=== PATIENT | female | born 1970 | race Caucasian/White ===

== ENCOUNTER 2017-03-24 13:54 | Emergency (ER) | payer MEDICAID, MEDICARE ==
[2017-03-24 14:32] LABS: CHLORIDE,CL 109 mmol/L (101-111); SODIUM,NA 143 mmol/L (135-145)
[2017-03-24] MEDS ORDERED: ALPRAZolam 0.5 MG Tab PO ONE (14:39)
[2017-03-24] MEDS ORDERED: Acetaminophen 325 MG Tab PO ONE (14:39)
[2017-03-24] MEDS ORDERED: Ondansetron 4 MG/2 ML SDV IV ONE (14:39)
--- NOTE | 2017-03-24 15:05 | EDM.PDOC ---
ED HPI GENERAL MEDICAL PROBLEM - General Chief Complaint: Chest Pain Stated Complaint: BY AMBULANCE Time Seen by Provider: 03/24/17 14:30 Source of Information: Reports: Patient History Limitations: Reports: No Limitations - History of Present Illness INITIAL COMMENTS - FREE TEXT/NARRATIVE: Patient is a 47 year old female who presents to ER via EMS from [facility] with complaints of chest pain. She reports that the chest pain started at 1315. Pain is worse with inspiration and radiates to the left shoulder blade. She does report some shortness of breath. Reports that she has not had her anxiety medications for a few days and is also feeling very anxious. She also complains of a headache. She reports she has been out of her medication for headaches, so she has had a throbbing headache for the past few days. She has a history of similar headaches. She also complains of nausea. Has not vomited. Reports she "just doesn't feel good. She is worried that she might have a pulmonary embolism, as she has in the past, because she has been driving [address] to visit her fiance. 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: EKG, IV/IO Bilateral Upper Chest Pain Score (Numeric/FACES): 7 - Related Data Allergies Allergy/AdvReac Type Severity Reaction Status Date / Time bee venom protein (honey bee) Allergy Airway Verified 03/24/17 14:06 Tightness lurasidone [From Latuda] Allergy Other Verified 03/24/17 14:06 morphine Allergy Chest Pain Verified 03/24/17 14:06 Penicillins Allergy Hives Verified 03/24/17 14:06 Home Meds: Home Meds ALPRAZolam [Alprazolam] 0.25 mg PO QID 03/24/17 [History] ClonazePAM [KlonoPIN] 1 mg PO BEDTIME 03/24/17 [History] Melatonin 6 mg PO BEDTIME 03/24/17 [History] Omeprazole 40 mg PO BID 03/24/17 [History] Potassium Chloride 10 meq PO DAILY 03/24/17 [History] Pramipexole Di-HCl [Mirapex] 2 tab PO BEDTIME 03/24/17 [History] Prazosin HCl [Prazosin] 3 mg PO BEDTIME 03/24/17 [History] Propranolol [Inderal] 20 mg PO TID 03/24/17 [History] Suvorexant [Belsomra] 20 mg PO BEDTIME 03/24/17 [History] Venlafaxine HCl [Venlafaxine ER] 75 mg PO BID 03/24/17 [History] atorvaSTATin [Lipitor] 10 mg PO BEDTIME 03/24/17 [History] risperiDONE 1 mg PO BEDTIME 03/24/17 [History] Past Medical History HEENT History: Reports: None Cardiovascular History: Reports: Blood Clots/VTE/DVT Respiratory History: Reports: PE Gastrointestinal History: Reports: GERD, Irritable Bowel Syndrome Genitourinary History: Reports: Pyelonephritis 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: Musculoskeletal History: Reports: None Neurological History: Reports: Migraines Psychiatric History: Reports: Anxiety, Bipolar, Depression, PTSD, Other (See Below) Other Psychiatric History: borderline personality disorder Endocrine/Metabolic History: Reports: None Hematologic History: Reports: None Immunologic History: Reports: None Oncologic (Cancer) History: Reports: None Dermatologic History: Reports: None - Infectious Disease History Infectious Disease History: Reports: Chicken Pox - Past Surgical History HEENT Surgical History: Reports: None Cardiovascular Surgical History: Reports: None Respiratory Surgical History: Reports: None GI Surgical History: Reports: Appendectomy, Cholecystectomy Female Surgical History: Reports: Section, Hysterectomy, Tubal Ligation Endocrine Surgical History: Reports: None Neurological Surgical History: Reports: None Musculoskeletal Surgical History: Reports: None Dermatological Surgical History: Reports: None Social & Family History - Family History Family Medical History: Noncontributory - Tobacco Use Smoking Status *Q: Current Every Day Smoker Years of Tobacco use: 20 Packs/Tins Daily: 1 Second Hand Smoke Exposure: Yes - Caffeine Use Caffeine Use: Reports: Coffee, Soda - Alcohol Use Days Per Week of Alcohol Use: 2 Number of Drinks Per Day: 3 Total Drinks Per Week: 6 - Recreational Drug Use Recreational Drug Use: No ED ROS GENERAL - Review of Systems Review Of Systems: ROS reveals no pertinent complaints other than HPI. ED EXAM, GENERAL - Physical Exam Exam: See Below Exam Limited By: No Limitations General Appearance: Alert, WD/WN, Anxious, Moderate Distress Eye Exam: Bilateral Eye: PERRL Head: Atraumatic, Normocephalic Neck: Normal Inspection, Supple, Non-Tender, Full Range of Motion Respiratory/Chest: No Respiratory Distress, Lungs Clear, Normal Breath Sounds, No Accessory Muscle Use Cardiovascular: Normal Peripheral Pulses, Regular Rate, Rhythm, No Edema, No Gallop, No JVD, No Murmur, No Rub GI/Abdominal: Normal Bowel Sounds, Soft, Non-Tender, No Organomegaly, No Distention, No Abnormal Bruit, No Mass (Female) Exam: Deferred Rectal (Female) Exam: Deferred Back Exam: Normal Inspection, Full Range of Motion, NT Extremities: Normal Inspection, Normal Range of Motion, Non-Tender, Normal Capillary Refill, No Pedal Edema Neurological: Alert, Oriented, CN II-XII Intact, Normal Cognition, Normal Gait, No Motor/Sensory Deficits Psychiatric: Anxious, Tearful Skin Exam: Warm, Dry, Intact, Normal Color, No Rash Lymphatic: No Adenopathy Course - Vital Signs Last Recorded V/S: Last Vital Signs Temp 36.6 C 03/24/17 17:21 Pulse 71 03/24/17 17:21 Resp 16 03/24/17 17:21 BP 110/68 03/24/17 17:21 Pulse Ox 99 03/24/17 17:21 - Orders/Labs/Meds Labs: Laboratory Tests 03/24/17 03/24/17 03/24/17 Range/Units 14:06 14:06 14:06 WBC 8.5 (5.0-10.0) 10^3/uL RBC 4.65 (4.2-5.4) 10^6/uL Hgb 14.3 (12.0-16.0) g/dL Hct 42.9 (37.0-47.0) % MCV 92.3 (80-100) fL MCH 30.8 (27.0-34.0) pg MCHC 33.3 (33.0-35.0) g/dL Plt Count 254 (150-450) 10^3/uL Neut % (Auto) 67.9 (42.2-75.2) % Lymph % (Auto) 24.4 (20.5-50.1) % Milam % (Auto) 5.9 (2-8) % Eos % (Auto) 1.2 (1.0-3.0) % Baso % (Auto) 0.6 (0.0-1.0) % PT 9.3 (9.0-12.0) SEC INR 0.9 (0.9-1.2) D-Dimer, Quantitative < 100 (0-400) ng/mL Sodium 143 (135-145) mmol/L Potassium 3.1 L (3.6-5.0) mmol/L Chloride 109 (101-111) mmol/L Carbon Dioxide 22.0 (21.0-31.0) mmol/L Anion Gap 15.1 BUN 6 L (7-18) mg/dL Creatinine 0.9 (0.6-1.3) mg/dL Est Cr Clr Drug Dosing 62.52 mL/min Estimated GFR (MDRD) > 60 BUN/Creatinine Ratio 6.66 Glucose 141 H (74-105) mg/dL Calcium 9.2 (8.4-10.2) mg/dl Total Bilirubin 0.4 (0.2-1.0) mg/dL AST 35 (10-42) IU/L ALT 32 (10-60) IU/L Alkaline Phosphatase 75 (42-121) IU/L Troponin I < 0.02 (0.00-0.02) ng/ml Total Protein 7.1 (6.7-8.2) g/dl Albumin 4.2 (3.2-5.5) g/dl Globulin 2.9 Albumin/Globulin Ratio 1.45 /20/17 Range/Units 17:25 WBC (5.0-10.0) 10^3/uL RBC (4.2-5.4) 10^6/uL Hgb (12.0-16.0) g/dL Hct (37.0-47.0) % MCV (80-100) fL MCH (27.0-34.0) pg MCHC (33.0-35.0) g/dL Plt Count (150-450) 10^3/uL Neut % (Auto) (42.2-75.2) % Lymph % (Auto) (20.5-50.1) % Milam % (Auto) (2-8) % Eos % (Auto) (1.0-3.0) % Baso % (Auto) (0.0-1.0) % PT (9.0-12.0) SEC INR (0.9-1.2) D-Dimer, Quantitative (0-400) ng/mL Sodium (135-145) mmol/L Potassium (3.6-5.0) mmol/L Chloride (101-111) mmol/L Carbon Dioxide (21.0-31.0) mmol/L Anion Gap BUN (7-18) mg/dL Creatinine (0.6-1.3) mg/dL Est Cr Clr Drug Dosing mL/min Estimated GFR (MDRD) BUN/Creatinine Ratio Glucose (74-105) mg/dL Calcium (8.4-10.2) mg/dl Total Bilirubin (0.2-1.0) mg/dL AST (10-42) IU/L ALT (10-60) IU/L Alkaline Phosphatase (42-121) IU/L Troponin I < 0.02 (0.00-0.02) ng/ml Total Protein (6.7-8.2) g/dl Albumin (3.2-5.5) g/dl Globulin Albumin/Globulin Ratio Meds: Medications Discontinued Medications Generic Name Dose Route Start Last Admin Trade Name Freq PRN Reason Stop Dose Admin Acetaminophen 650 mg 03/24/17 14:39 03/24/17 14:59 Tylenol PO 03/24/17 14:40 650 mg NOW ONE Administration Alprazolam 0.5 mg 03/24/17 14:39 03/24/17 14:59 Xanax PO 03/24/17 14:40 0.5 mg ONETIME ONE Administration Ondansetron HCl 4 mg 03/24/17 14:39 03/24/17 15:00 Zofran IV 03/24/17 14:40 4 mg ONETIME ONE Administration - Re-Assessments/Exams Free Text/Narrative Re-Assessment/Exam: Discussed lab, EKG, and xray findings with patient. Will plan to redraw troponin and repeat EKG at 1715 (4 hours after onset of pain) to rule out cardiac origin of chest pain. 03/24/17 1500 Departure - Departure Time of Disposition: 18:09 Disposition: Home, Self-Care 01 Condition: Good Clinical Impression: Panic attack Instructions: Panic Attacks, [id number], Nonspecific Chest Pain, [id number] Forms: ED Department Discharge Care Plan Goals: Xray, lab, and EKG discussed with patient. Discussed that chest pain is not of cardiac origin, as the initial and repeat troponin and EKG were normal. This is likely anxiety/panic attack related. Reassurance provided to patient. Recommend patient restart her anxiety medications. Follow up with primary care or ER if symptoms worsen or do not improve.
[2017-03-24 17:22] VITALS: BP 110/68
--- NOTE | 2017-03-25 14:19 | EKG ---
03/24/2017 - IMANI IRWIN - TIME: 1409 hours. I reviewed the EKG and agree with the machine's reading. TIME: 1702 hours. I reviewed the EKG and agree with the machine's reading. [facility] /[id number]
== END 2017-03-24 18:25 | disposition home or self-care (01) ==
LOC: DL.ED 13:54
DX: F41.0 Panic disorder [episodic paroxysmal anxiety] (principal); F17.210 Nicotine dependence, cigarettes, uncomplicated; Z88.5 Allergy status to narcotic agent; Z79.899 Other long term (current) drug therapy; Z88.0 Allergy status to penicillin; Z91.030 Bee allergy status
CPT/HCPCS: 36415; 71010; 80053; 84484; 85025; 85379; 85610; 93005; 93010; 96374; 99285; A9270; J2405; 99284

== ENCOUNTER 2017-04-03 21:46 | Emergency (ER) | payer MEDICARE, MEDICAID ==
[2017-04-03] MEDS ORDERED: Pantoprazole 40 MG Vial IVPUSH ONE (22:21)
[2017-04-03] MEDS ORDERED: Sodium Chloride 0.9% 1,000 ML IV ONE (22:21)
[2017-04-03] MEDS ORDERED: Ondansetron 4 MG/2 ML SDV IV ONE (22:21)
--- NOTE | 2017-04-03 22:28 | EDM.PDOC ---
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 Epigastric Pain Score (Numeric/FACES): 7 - Related Data Allergies Allergy/AdvReac Type Severity Reaction Status Date / Time bee venom protein (honey bee) Allergy Airway Verified 04/03/17 21:53 Tightness lurasidone [From Latuda] Allergy Other Verified 04/03/17 21:53 morphine Allergy Chest Pain Verified 04/03/17 21:53 Penicillins Allergy Hives Verified 04/03/17 21:53 Home Meds: Home Meds ALPRAZolam [Alprazolam] 0.25 mg PO QID 03/24/17 [History] ClonazePAM [KlonoPIN] 1 mg PO BEDTIME 03/24/17 [History] Melatonin 6 mg PO BEDTIME 03/24/17 [History] Omeprazole 40 mg PO BID 03/24/17 [History] Potassium Chloride 10 meq PO DAILY 03/24/17 [History] Pramipexole Di-HCl [Mirapex] 2 tab PO BEDTIME 03/24/17 [History] Prazosin HCl [Prazosin] 3 mg PO BEDTIME 03/24/17 [History] Propranolol [Inderal] 80 mg PO DAILY 03/24/17 [History] Venlafaxine HCl [Venlafaxine ER] 75 mg PO BID 03/24/17 [History] atorvaSTATin [Lipitor] 10 mg PO BEDTIME 03/24/17 [History] risperiDONE 1 mg PO BEDTIME 03/24/17 [History] Fesoterodine Fumarate [Toviaz] 8 mg PO DAILY 04/03/17 [History] valACYclovir HCl [Valtrex] 500 mg PO DAILY 04/03/17 [History] Past Medical History HEENT History: Reports: None Cardiovascular History: Reports: Blood Clots/VTE/DVT Respiratory History: Reports: PE, Other (See Below) Other Respiratory History: PE 2016 Gastrointestinal History: Reports: GERD, Irritable Bowel Syndrome, Other (See Below) Other Gastrointestinal History: 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 Genitourinary History: Reports: Pyelonephritis [employer] History: Reports: Musculoskeletal History: Reports: Back Pain, Chronic Neurological History: Reports: Migraines Psychiatric History: Reports: Anxiety, Bipolar, Depression, PTSD, Other (See Below) Other Psychiatric History: borderline personality disorder Endocrine/Metabolic History: Reports: None Hematologic History: Reports: None Immunologic History: Reports: None Oncologic (Cancer) History: Reports: None Dermatologic History: Reports: None - Infectious Disease History Infectious Disease History: Reports: Chicken Pox - Past Surgical History HEENT Surgical History: Reports: None Cardiovascular Surgical History: Reports: None Respiratory Surgical History: Reports: None GI Surgical History: Reports: Appendectomy, Cholecystectomy Female Surgical History: Reports: Section, Hysterectomy, Tubal Ligation Endocrine Surgical History: Reports: None Neurological Surgical History: Reports: None Musculoskeletal Surgical History: Reports: Other (See Below) Other Musculoskeletal Surgeries/Procedures:: sergio surgery, knee surgery Dermatological Surgical History: Reports: None Social & Family History - Family History Family Medical History: Noncontributory - Tobacco Use Smoking Status *Q: Heavy Tobacco Smoker Years of Tobacco use: 20 Packs/Tins Daily: 0.7 Second Hand Smoke Exposure: Yes - Caffeine Use Caffeine Use: Reports: Coffee, Soda - Alcohol Use Days Per Week of Alcohol Use: 3 Number of Drinks Per Day: 12 Total Drinks Per Week: 36 - Recreational Drug Use Recreational Drug Use: No ED ROS GENERAL - Review of Systems Review Of Systems: ROS reveals no pertinent complaints other than HPI. ED EXAM, GI/ABD - Physical Exam Exam: See Below Exam Limited By: Uncooperative General Appearance: WD/WN, Mild Distress, Other (distraught, tearful) Ears: Hearing Grossly Normal Throat/Mouth: Normal Voice, No Airway Compromise Head: Atraumatic Neck: Non-Tender, Full Range of Motion Respiratory/Chest: No Respiratory Distress Cardiovascular: Regular Rate, Rhythm GI/Abdominal Exam: Soft, Non-Tender, Other (BS hyper). No: Distended, Guarding , Rigid, Rebound Neurological: Alert, Oriented, Normal Cognition, Normal Gait, No Motor/Sensory Deficits Psychiatric: Tearful Skin Exam: Warm, Dry, Normal Color Course - Vital Signs Last Recorded V/S: Last Vital Signs Temp 36.7 C 04/03/17 21:59 Pulse 62 04/04/17 00:00 Resp 16 04/04/17 00:00 BP 119/69 04/04/17 00:00 Pulse Ox 99 04/04/17 00:00 - Orders/Labs/Meds Orders: Active Orders 24 hr Category Date Time Status Sodium Chloride 0.9% [Normal Saline] 1,000 ml Med 04/03/17 22:21 Active IV .BOLUS Medication Orders Sodium Chloride (Normal Saline) 1,000 mls @ 500 mls/hr IV .BOLUS ONE Stop: 04/04/17 00:20 Last Admin: 04/03/17 22:36 Dose: 500 mls/hr Labs: Laboratory Tests 04/03/17 04/03/17 04/03/17 Range/Units 22:03 22:03 22:03 WBC 9.2 (5.0-10.0) 10^3/uL RBC 4.44 (4.2-5.4) 10^6/uL Hgb 13.6 (12.0-16.0) g/dL Hct 40.7 (37.0-47.0) % MCV 91.7 (80-100) fL MCH 30.6 (27.0-34.0) pg MCHC 33.4 (33.0-35.0) g/dL Plt Count 284 (150-450) 10^3/uL Neut % (Auto) 52.6 (42.2-75.2) % Lymph % (Auto) 36.7 (20.5-50.1) % Garfield % (Auto) 7.7 (2-8) % Eos % (Auto) 2.2 (1.0-3.0) % Baso % (Auto) 0.8 (0.0-1.0) % PT 9.2 (9.0-12.0) SEC INR 0.9 (0.9-1.2) APTT 22.5 (22.0-34.0) SEC Sodium 137 (135-145) mmol/L Potassium 3.9 (3.6-5.0) mmol/L Chloride 107 (101-111) mmol/L Carbon Dioxide 24.0 (21.0-31.0) mmol/L Anion Gap 9.9 BUN 8 (7-18) mg/dL Creatinine 0.7 (0.6-1.3) mg/dL Est Cr Clr Drug Dosing 78.58 mL/min Estimated GFR (MDRD) > 60 BUN/Creatinine Ratio 11.42 Glucose 97 (74-105) mg/dL Calcium 9.3 (8.4-10.2) mg/dl Total Bilirubin 0.4 (0.2-1.0) mg/dL AST 24 (10-42) IU/L ALT 21 (10-60) IU/L Alkaline Phosphatase 86 (42-121) IU/L Total Protein 6.6 L (6.7-8.2) g/dl Albumin 3.9 (3.2-5.5) g/dl Globulin 2.7 Albumin/Globulin Ratio 1.44 Ethyl Alcohol < 5 mg/dL Meds: Medications Generic Name Dose Route Start Last Admin Trade Name Freq PRN Reason Stop Dose Admin Sodium Chloride 1,000 mls @ 500 mls/hr 04/03/17 22:21 04/03/17 22:36 Normal Saline IV 04/04/17 00:20 500 mls/hr .BOLUS ONE Administration Discontinued Medications Generic Name Dose Route Start Last Admin Trade Name Freq PRN Reason Stop Dose Admin Iopamidol 100 ml 04/03/17 22:49 04/03/17 22:55 Isovue-300 (61%) IVPUSH 04/03/17 22:50 100 ml ONETIME ONE Administration Morphine Sulfate 2 mg 04/03/17 23:18 04/03/17 23:55 Morphine IVPUSH 04/03/17 23:19 2 mg ONETIME ONE Administration Ondansetron HCl 4 mg 04/03/17 22:21 04/03/17 22:37 Zofran IV 04/03/17 22:22 4 mg ONETIME ONE Administration Pantoprazole Sodium 80 mg 04/03/17 22:21 04/03/17 22:39 Protonix Iv IVPUSH 04/03/17 22:22 80 mg .BOLUS ONE Administration - Re-Assessments/Exams Free Text/Narrative Re-Assessment/Exam: 04/04/17 00:09 results discussed with pt, case discussed with Dr Castle @ who kindly accepted pt. Departure - Departure Time of Disposition: 00:10 Disposition: DC/Tfer to Acute Hospital 02 Condition: Good Clinical Impression: Upper GI bleeding - Discharge Information Forms: Interfacility Transfer EMTALA - My Orders Last 24 Hours: My Active Orders 04/03/17 22:21 Sodium Chloride 0.9% [Normal Saline] 1,000 ml IV .BOLUS - Assessment/Plan Last 24 Hours: My Active Orders 04/03/17 22:21 Sodium Chloride 0.9% [Normal Saline] 1,000 ml IV .BOLUS
[2017-04-03 22:30] LABS: CHLORIDE,CL 107 mmol/L (101-111); SODIUM,NA 137 mmol/L (135-145)
[2017-04-03] MEDS ORDERED: Iopamidol 612 MG/ML 100 ML Bottle IVPUSH ONE (22:49)
[2017-04-03] MEDS ORDERED: Morphine 2 MG/ML Syringe IVPUSH ONE (23:18)
[2017-04-04 00:01] VITALS: BP 119/69
[2017-04-04] MEDS ORDERED: HYDROmorphone 1 MG/ML Syringe IVPUSH ONE (00:09)
== END 2017-04-04 00:45 ==
LOC: DL.ED 21:46
DX: K92.2 Gastrointestinal hemorrhage, unspecified (principal); F17.210 Nicotine dependence, cigarettes, uncomplicated; K21.9 Gastro-esophageal reflux disease without esophagitis; F31.9 Bipolar disorder, unspecified; Z90.49 Acquired absence of other specified parts of digestive tract; Z90.710 Acquired absence of both cervix and uterus; Z98.890 Other specified postprocedural states; Z88.0 Allergy status to penicillin; Z88.5 Allergy status to narcotic agent; Z88.8 Allergy status to other drugs, medicaments and biological substances; Z91.030 Bee allergy status; Z79.899 Other long term (current) drug therapy
CPT/HCPCS: 36415; 74177; 80053; 85025; 85610; 85730; 96361; 96374; 96375; 99285; C9113; G0480; J1170; J2270; J2405; J7030; Q9967; 99284

== ENCOUNTER 2017-04-27 13:42 | Emergency (ER) | payer MEDICARE, MEDICAID ==
[2017-04-27 14:21] LABS: CHLORIDE,CL 102 mmol/L (101-111); SODIUM,NA 139 mmol/L (135-145)
[2017-04-27 14:26] VITALS: BP 119/72
[2017-04-27] MEDS ORDERED: D5 1/2 NS w/ 10 mEq/L KCl 1,000 ML IV SCH (14:45)
[2017-04-27] MEDS ORDERED: Potassium Chloride 10 MEQ Tab.ER PO ONE (14:49)
--- NOTE | 2017-04-27 14:57 | EDM.PDOC ---
ED HPI GENERAL MEDICAL PROBLEM - General Chief Complaint: Lower Extremity Injury/Pain Stated Complaint: IN BY AMBULANCE Time Seen by Provider: 04/27/17 14:00 Source of Information: Reports: Patient, RN History Limitations: Reports: No Limitations - History of Present Illness INITIAL COMMENTS - FREE TEXT/NARRATIVE: Patient presents to ER per [facility] with c/o right calf pain, dizziness, and sob. Patient states she was moving some boxes at home when she had a sharp pain in her right calf. She states at that time she fell to the floor and was unable to stand on it. She states she became dizzy and short of breath at that time. She denies any loss of consciousness. 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 She denies use of anticoagulants at this time. She states she was on Xarelto until December of 2016. Onset: Today, Sudden Location: Reports: Lower Extremity, Right Quality: Reports: Throbbing Severity: Moderate Improves with: Reports: None Worsens with: Reports: None Context: Reports: Activity, Exercise, Lifting Associated Symptoms: Reports: Shortness of Breath Right Lower Leg Pain Score (Numeric/FACES): 8 - Related Data Allergies Allergy/AdvReac Type Severity Reaction Status Date / Time bee venom protein (honey bee) Allergy Airway Verified 04/27/17 15:17 Tightness lurasidone [From Latuda] Allergy Other Verified 04/27/17 15:17 morphine Allergy Chest Pain Verified 04/27/17 15:17 Penicillins Allergy Hives Verified 04/27/17 15:17 Home Meds: Home Meds ALPRAZolam [Alprazolam] 0.25 mg PO QID 03/24/17 [History] ClonazePAM [KlonoPIN] 1 mg PO BEDTIME 03/24/17 [History] Melatonin 6 mg PO BEDTIME 03/24/17 [History] Omeprazole 40 mg PO BID 03/24/17 [History] Potassium Chloride 10 meq PO DAILY 03/24/17 [History] Pramipexole Di-HCl [Mirapex] 2 tab PO BEDTIME 03/24/17 [History] Prazosin HCl [Prazosin] 3 mg PO BEDTIME 03/24/17 [History] Propranolol [Inderal] 80 mg PO DAILY 03/24/17 [History] Venlafaxine HCl [Venlafaxine ER] 75 mg PO BID 03/24/17 [History] atorvaSTATin [Lipitor] 10 mg PO BEDTIME 03/24/17 [History] risperiDONE 1 mg PO BEDTIME 03/24/17 [History] Fesoterodine Fumarate [Toviaz] 8 mg PO DAILY 04/03/17 [History] valACYclovir HCl [Valtrex] 500 mg PO DAILY 04/03/17 [History] Past Medical History HEENT History: Reports: None Cardiovascular History: Reports: Blood Clots/VTE/DVT Respiratory History: Reports: PE, Sleep Apnea, Other (See Below) Other Respiratory History: PE 2016 Gastrointestinal History: Reports: GERD, Irritable Bowel Syndrome, Other (See Below) Other Gastrointestinal History: 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 Genitourinary History: Reports: Pyelonephritis 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: Musculoskeletal History: Reports: Back Pain, Chronic Neurological History: Reports: Migraines Psychiatric History: Reports: Anxiety, Bipolar, Depression, PTSD, Other (See Below) Other Psychiatric History: borderline personality disorder Endocrine/Metabolic History: Reports: None Hematologic History: Reports: None Immunologic History: Reports: None Oncologic (Cancer) History: Reports: None Dermatologic History: Reports: None - Infectious Disease History Infectious Disease History: Reports: Chicken Pox - Past Surgical History HEENT Surgical History: Reports: None Cardiovascular Surgical History: Reports: None Respiratory Surgical History: Reports: None GI Surgical History: Reports: Appendectomy, Cholecystectomy Female Surgical History: Reports: Section, Hysterectomy, Tubal Ligation Endocrine Surgical History: Reports: None Neurological Surgical History: Reports: None Musculoskeletal Surgical History: Reports: Other (See Below) Other Musculoskeletal Surgeries/Procedures:: sergio surgery, knee surgery Dermatological Surgical History: Reports: None Social & Family History - Family History Family Medical History: Noncontributory - Tobacco Use Smoking Status *Q: Current Every Day Smoker Years of Tobacco use: 20 Packs/Tins Daily: 0.5 Second Hand Smoke Exposure: No - Caffeine Use Caffeine Use: Reports: Coffee - Alcohol Use Days Per Week of Alcohol Use: 3 Number of Drinks Per Day: 12 Total Drinks Per Week: 36 - Recreational Drug Use Recreational Drug Use: No Review of Systems - Review of Systems Review Of Systems: ROS reveals no pertinent complaints other than HPI. ED EXAM, GENERAL - Physical Exam Exam: See Below Exam Limited By: No Limitations General Appearance: Alert, WD/WN, Moderate Distress Eye Exam: Bilateral Eye: Normal Inspection Ears: Normal External Exam, Hearing Grossly Normal Nose: Normal Inspection Throat/Mouth: Normal Inspection, Normal Voice, No Airway Compromise Head: Atraumatic, Normocephalic Neck: Normal Inspection, Supple, Non-Tender, Full Range of Motion Respiratory/Chest: No Respiratory Distress, Lungs Clear, Normal Breath Sounds, No Accessory Muscle Use, Chest Non-Tender Cardiovascular: Normal Peripheral Pulses, Regular Rate, Rhythm, No Edema, No Gallop, No JVD, No Murmur, No Rub Peripheral Pulses: 2+: Radial (L), Radial (R), Dorsalis Pedis (L), Dorsalis Pedis (R) GI/Abdominal: Normal Bowel Sounds, Soft, Non-Tender, No Organomegaly, No Distention, No Abnormal Bruit, No Mass (Female) Exam: Deferred Rectal (Female) Exam: Deferred Back Exam: Normal Inspection, Full Range of Motion Extremities: Normal Inspection, Normal Range of Motion, Non-Tender, No Pedal Edema, Normal Capillary Refill, Leg Pain (right calf), Limited Range of Motion ( right leg). No: Pedal Edema, Slow Capillary Refill, Joint Swelling, Christel's Sign, Increased Warmth, Redness Neurological: Alert, Oriented, Normal Gait, No Motor/Sensory Deficits Psychiatric: Normal Affect, Anxious Skin Exam: Warm, Dry, Intact, Normal Color, No Rash Lymphatic: No Adenopathy Course - Vital Signs Last Recorded V/S: Last Vital Signs Temp 97.0 F 04/27/17 13:42 Pulse 69 04/27/17 13:42 Resp 16 04/27/17 13:42 BP 119/72 04/27/17 13:42 Pulse Ox 100 04/27/17 13:42 - Orders/Labs/Meds Orders: Active Orders 24 hr Category Date Time Status EKG Documentation Completion [RC] STAT Care 04/27/17 13:54 Active Labs: Laboratory Tests 04/27/17 04/27/17 04/27/17 Range/Units 13:54 13:54 13:54 WBC 9.6 (5.0-10.0) 10^3/uL RBC 4.40 (4.2-5.4) 10^6/uL Hgb 13.6 (12.0-16.0) g/dL Hct 40.3 (37.0-47.0) % MCV 91.6 (80-100) fL MCH 30.9 (27.0-34.0) pg MCHC 33.7 (33.0-35.0) g/dL Plt Count 268 (150-450) 10^3/uL Neut % (Auto) 61.4 (42.2-75.2) % Lymph % (Auto) 30.7 (20.5-50.1) % [place] % (Auto) 6.8 (2-8) % Eos % (Auto) 0.7 L (1.0-3.0) % Baso % (Auto) 0.4 (0.0-1.0) % D-Dimer, Quantitative < 100 (0-400) ng/mL Sodium 139 (135-145) mmol/L Potassium 2.9 L (3.6-5.0) mmol/L Chloride 102 (101-111) mmol/L Carbon Dioxide 27.0 (21.0-31.0) mmol/L Anion Gap 12.9 BUN 10 (7-18) mg/dL Creatinine 0.9 (0.6-1.3) mg/dL Est Cr Clr Drug Dosing TNP Estimated GFR (MDRD) > 60 BUN/Creatinine Ratio 11.11 Glucose 99 (74-105) mg/dL Calcium 9.3 (8.4-10.2) mg/dl Total Bilirubin 0.7 (0.2-1.0) mg/dL AST 28 (10-42) IU/L ALT 30 (10-60) IU/L Alkaline Phosphatase 82 (42-121) IU/L Total Protein 6.9 (6.7-8.2) g/dl Albumin 4.2 (3.2-5.5) g/dl Globulin 2.7 Albumin/Globulin Ratio 1.56 Urine Color (YELLOW) Urine Appearance (CLEAR) Urine pH (5.0-9.0) Ur Specific [place] (1.005-1.030) Urine Protein (NEGATIVE) Urine Glucose (UA) (NEGATIVE) Urine Ketones (NEGATIVE) Urine Occult Blood (NEGATIVE) Urine Nitrite (NEGATIVE) Urine Bilirubin (NEGATIVE) Urine Urobilinogen (0.2-1.0) mg/dL Ur Leukocyte Esterase (NEGATIVE) Urine RBC /HPF Urine WBC (0-5/HPF) /HPF Ur Epithelial Cells /HPF Urine Bacteria (0-FEW/HPF) /HPF Urine Opiates Screen (NEGATIVE) Ur Oxycodone Screen (NEGATIVE) Urine Methadone Screen (NEGATIVE) Ur Barbiturates Screen (NEGATIVE) U Tricyclic Antidepress (NEGATIVE) Ur Phencyclidine Scrn (NEGATIVE) Ur Amphetamine Screen (NEGATIVE) U Methamphetamines Scrn (NEGATIVE) Urine MDMA Screen (NEGATIVE) U Benzodiazepines Scrn (NEGATIVE) Urine Cocaine Screen (NEGATIVE) U Marijuana (THC) Screen (NEGATIVE) 04/27/17 04/27/17 Range/Units 14:30 14:30 WBC (5.0-10.0) 10^3/uL RBC (4.2-5.4) 10^6/uL Hgb (12.0-16.0) g/dL Hct (37.0-47.0) % MCV (80-100) fL MCH (27.0-34.0) pg MCHC (33.0-35.0) g/dL Plt Count (150-450) 10^3/uL Neut % (Auto) (42.2-75.2) % Lymph % (Auto) (20.5-50.1) % [place] % (Auto) (2-8) % Eos % (Auto) (1.0-3.0) % Baso % (Auto) (0.0-1.0) % D-Dimer, Quantitative (0-400) ng/mL Sodium (135-145) mmol/L Potassium (3.6-5.0) mmol/L Chloride (101-111) mmol/L Carbon Dioxide (21.0-31.0) mmol/L Anion Gap BUN (7-18) mg/dL Creatinine (0.6-1.3) mg/dL Est Cr Clr Drug Dosing Estimated GFR (MDRD) BUN/Creatinine Ratio Glucose (74-105) mg/dL Calcium (8.4-10.2) mg/dl Total Bilirubin (0.2-1.0) mg/dL AST (10-42) IU/L ALT (10-60) IU/L Alkaline Phosphatase (42-121) IU/L Total Protein (6.7-8.2) g/dl Albumin (3.2-5.5) g/dl Globulin Albumin/Globulin Ratio Urine Color Yellow (YELLOW) Urine Appearance Clear (CLEAR) Urine pH 6.0 (5.0-9.0) Ur Specific [place] <= 1.005 (1.005-1.030) Urine Protein Negative (NEGATIVE) Urine Glucose (UA) Negative (NEGATIVE) Urine Ketones Negative (NEGATIVE) Urine Occult Blood Negative (NEGATIVE) Urine Nitrite Negative (NEGATIVE) Urine Bilirubin Negative (NEGATIVE) Urine Urobilinogen 0.2 (0.2-1.0) mg/dL Ur Leukocyte Esterase Negative (NEGATIVE) Urine RBC 0-5 /HPF Urine WBC Not seen (0-5/HPF) /HPF Ur Epithelial Cells Rare /HPF Urine Bacteria Rare (0-FEW/HPF) /HPF Urine Opiates Screen Negative (NEGATIVE) Ur Oxycodone Screen Negative (NEGATIVE) Urine Methadone Screen Negative (NEGATIVE) Ur Barbiturates Screen Negative (NEGATIVE) U Tricyclic Antidepress Negative (NEGATIVE) Ur Phencyclidine Scrn Negative (NEGATIVE) Ur Amphetamine Screen Negative (NEGATIVE) U Methamphetamines Scrn Negative (NEGATIVE) Urine MDMA Screen Negative (NEGATIVE) U Benzodiazepines Scrn Positive H (NEGATIVE) Urine Cocaine Screen Negative (NEGATIVE) U Marijuana (THC) Screen Negative (NEGATIVE) Meds: Medications Discontinued Medications Generic Name Dose Route Start Last Admin Trade Name Freq PRN Reason Stop Dose Admin Hydrocodone Bitart/Acetaminophen 1 tab 04/27/17 16:01 04/27/17 16:06 [place] 325-5 Mg PO 04/27/17 16:02 1 tab ONETIME ONE Administration Potassium Chloride/Dextrose/Sod Cl 1,000 mls @ 1,000 mls/hr 04/27/17 14:45 15:06 D5 1/2 Ns W/ 10 Meq/L Kcl IV 1,000 mls/hr ASDIRECTED CRUZ Administration Ketorolac Tromethamine 30 mg 04/27/17 15:04 04/27/17 15:13 Toradol IVPUSH 04/27/17 15:05 30 mg ONETIME ONE Administration Potassium Chloride 20 meq 04/27/17 14:49 04/27/17 14:57 Klor-Con 10 PO 04/27/17 14:50 20 meq ONETIME ONE Administration Departure - Departure Time of Disposition: 15:44 Disposition: Home, Self-Care 01 Condition: Fair Clinical Impression: Hypokalemia, Cramps, muscle, general - Discharge Information Instructions: Muscle Cramps and Spasms, [id number], Hypokalemia, Potassium Content of Foods Forms: ED Department Discharge Additional Instructions: Rest Follow up with Justina Graham for referral regarding peripheral artery disease - My Orders Last 24 Hours: My Active Orders 04/27/17 13:54 EKG Documentation Completion [RC] STAT - Assessment/Plan Last 24 Hours: My Active Orders 04/27/17 13:54 EKG Documentation Completion [RC] STAT
[2017-04-27] MEDS ORDERED: Ketorolac 30 MG/ML SDV IVPUSH ONE (15:04)
[2017-04-27] MEDS ORDERED: Acetaminophen/HYDROcodone 325-5 MG Tab PO ONE (16:01)
--- NOTE | 2017-04-28 22:35 | EKG ---
04/27/2017 - IMANI IRWIN B - TIME: 1401 hours. EKG shows normal sinus rhythm. Borderline T-wave abnormalities are diffuse. [facility] /[id number]
== END 2017-04-27 16:14 | disposition home or self-care (01) ==
LOC: DL.ED 13:42
DX: E87.6 Hypokalemia (principal); R25.2 Cramp and spasm; F17.210 Nicotine dependence, cigarettes, uncomplicated; Z88.0 Allergy status to penicillin; Z88.5 Allergy status to narcotic agent; Z79.899 Other long term (current) drug therapy
CPT/HCPCS: 36415; 80053; 80305; 81001; 85025; 85379; 93005; 93010; 96365; 96375; 99284; A9270; J1885; J3480

== ENCOUNTER 2017-05-06 17:24 | Emergency (ER) | payer MEDICARE, MEDICAID ==
[2017-05-06 17:52] VITALS: BP 130/81
[2017-05-06] MEDS ORDERED: Sodium Chloride 0.9% 10 ML Syringe FLUSH PRN (17:52)
--- NOTE | 2017-05-06 17:52 | EDM.PDOC ---
<Vidal Agee - Last Filed: 05/06/17 20:44> ED HPI GENERAL MEDICAL PROBLEM - General Chief Complaint: Abdominal Pain Stated Complaint: SEVERE AB PAIN,VOMITING BLOOD [id number] Time Seen by Provider: 05/06/17 17:51 - Related Data Allergies Allergy/AdvReac Type Severity Reaction Status Date / Time bee venom protein (honey bee) Allergy Airway Verified 05/07/17 23:43 Tightness lurasidone [From Latuda] Allergy Other Verified 05/07/17 23:43 morphine Allergy Chest Pain Verified 05/07/17 23:43 Penicillins Allergy Hives Verified 05/07/17 23:43 Home Meds: Home Meds ALPRAZolam [Alprazolam] 0.25 mg PO QID 03/24/17 [History] Melatonin 10 mg PO BEDTIME 03/24/17 [History] Omeprazole 40 mg PO BID 03/24/17 [History] Potassium Chloride 30 meq PO DAILY 03/24/17 [History] Pramipexole Di-HCl [Mirapex] 2 tab PO BEDTIME 03/24/17 [History] Prazosin HCl [Prazosin] 3 mg PO BEDTIME 03/24/17 [History] Propranolol [Inderal] 80 mg PO DAILY 03/24/17 [History] Venlafaxine HCl [Venlafaxine ER] 75 mg PO BID 03/24/17 [History] atorvaSTATin [Lipitor] 10 mg PO BEDTIME 03/24/17 [History] risperiDONE 1 mg PO BEDTIME 03/24/17 [History] Fesoterodine Fumarate [Toviaz] 8 mg PO DAILY 04/03/17 [History] valACYclovir HCl [Valtrex] 500 mg PO DAILY 04/03/17 [History] Omeprazole 40 mg PO DAILY 05/08/17 [History] Potassium Chloride 10 meq PO DAILY 05/08/17 [History] Pramipexole Di-HCl [Mirapex] 0.125 mg PO BEDTIME 05/08/17 [History] Propranolol [Inderal LA] 80 mg PO DAILY 05/08/17 [History] Venlafaxine HCl [Venlafaxine ER] 75 mg PO DAILY 05/08/17 [History] ED EXAM, GI/ABD - Physical Exam Exam: See Below Course - Vital Signs Text/Narrative:: All testing NEGATIVE ( Urine, Blood and Abdomen Pelvis CT) Last Recorded V/S: Last Vital Signs Temp 97.8 F 05/06/17 17:25 Pulse 88 05/06/17 17:25 Resp 16 05/06/17 17:25 BP 130/81 05/06/17 17:25 Pulse Ox 100 05/06/17 17:25 - Orders/Labs/Meds Labs: Laboratory Tests 05/06/17 05/06/17 05/06/17 Range/Units 18:00 18:00 18:00 WBC 8.2 (5.0-10.0) 10^3/uL RBC 4.48 (4.2-5.4) 10^6/uL Hgb 13.6 (12.0-16.0) g/dL Hct 41.2 (37.0-47.0) % MCV 92.0 (80-100) fL MCH 30.4 (27.0-34.0) pg MCHC 33.0 (33.0-35.0) g/dL Plt Count 271 (150-450) 10^3/uL Neut % (Auto) 58.5 (42.2-75.2) % Lymph % (Auto) 31.2 (20.5-50.1) % [place] % (Auto) 7.8 (2-8) % Eos % (Auto) 2.0 (1.0-3.0) % Baso % (Auto) 0.5 (0.0-1.0) % Sodium 138 (135-145) mmol/L Potassium 3.8 (3.6-5.0) mmol/L Chloride 101 (101-111) mmol/L Carbon Dioxide 29.0 (21.0-31.0) mmol/L Anion Gap 11.8 BUN 10 (7-18) mg/dL Creatinine 0.9 (0.6-1.3) mg/dL Est Cr Clr Drug Dosing 61.12 mL/min Estimated GFR (MDRD) > 60 BUN/Creatinine Ratio 11.11 Glucose 105 (74-105) mg/dL Calcium 9.4 (8.4-10.2) mg/dl Total Bilirubin 0.6 (0.2-1.0) mg/dL AST 24 (10-42) IU/L ALT 26 (10-60) IU/L Alkaline Phosphatase 80 (42-121) IU/L Total Protein 6.9 (6.7-8.2) g/dl Albumin 4.1 (3.2-5.5) g/dl Globulin 2.8 Albumin/Globulin Ratio 1.46 Amylase 52 (28-100) U/L Lipase 40 (22-51) U/L Urine Color (YELLOW) Urine Appearance (CLEAR) Urine pH (5.0-9.0) Ur Specific [place] (1.005-1.030) Urine Protein (NEGATIVE) Urine Glucose (UA) (NEGATIVE) Urine Ketones (NEGATIVE) Urine Occult Blood (NEGATIVE) Urine Nitrite (NEGATIVE) Urine Bilirubin (NEGATIVE) Urine Urobilinogen (0.2-1.0) mg/dL Ur Leukocyte Esterase (NEGATIVE) Urine RBC /HPF Urine WBC (0-5/HPF) /HPF Ur Epithelial Cells /HPF Urine Bacteria (0-FEW/HPF) /HPF Urine Opiates Screen (NEGATIVE) Ur Oxycodone Screen (NEGATIVE) Urine Methadone Screen (NEGATIVE) Ur Barbiturates Screen (NEGATIVE) U Tricyclic Antidepress (NEGATIVE) Ur Phencyclidine Scrn (NEGATIVE) Ur Amphetamine Screen (NEGATIVE) U Methamphetamines Scrn (NEGATIVE) Urine MDMA Screen (NEGATIVE) U Benzodiazepines Scrn (NEGATIVE) Urine Cocaine Screen (NEGATIVE) U Marijuana (THC) Screen (NEGATIVE) 05/06/17 05/06/17 Range/Units 18:07 18:07 WBC (5.0-10.0) 10^3/uL RBC (4.2-5.4) 10^6/uL Hgb (12.0-16.0) g/dL Hct (37.0-47.0) % MCV (80-100) fL MCH (27.0-34.0) pg MCHC (33.0-35.0) g/dL Plt Count (150-450) 10^3/uL Neut % (Auto) (42.2-75.2) % Lymph % (Auto) (20.5-50.1) % [place] % (Auto) (2-8) % Eos % (Auto) (1.0-3.0) % Baso % (Auto) (0.0-1.0) % Sodium (135-145) mmol/L Potassium (3.6-5.0) mmol/L Chloride (101-111) mmol/L Carbon Dioxide (21.0-31.0) mmol/L Anion Gap BUN (7-18) mg/dL Creatinine (0.6-1.3) mg/dL Est Cr Clr Drug Dosing mL/min Estimated GFR (MDRD) BUN/Creatinine Ratio Glucose (74-105) mg/dL Calcium (8.4-10.2) mg/dl Total Bilirubin (0.2-1.0) mg/dL AST (10-42) IU/L ALT (10-60) IU/L Alkaline Phosphatase (42-121) IU/L Total Protein (6.7-8.2) g/dl Albumin (3.2-5.5) g/dl Globulin Albumin/Globulin Ratio Amylase (28-100) U/L Lipase (22-51) U/L Urine Color Yellow (YELLOW) Urine Appearance Clear (CLEAR) Urine pH 5.5 (5.0-9.0) Ur Specific [place] <= 1.005 (1.005-1.030) Urine Protein Negative (NEGATIVE) Urine Glucose (UA) Negative (NEGATIVE) Urine Ketones Negative (NEGATIVE) Urine Occult Blood Negative (NEGATIVE) Urine Nitrite Negative (NEGATIVE) Urine Bilirubin Negative (NEGATIVE) Urine Urobilinogen 0.2 (0.2-1.0) mg/dL Ur Leukocyte Esterase Negative (NEGATIVE) Urine RBC 0-5 /HPF Urine WBC 0-5 (0-5/HPF) /HPF Ur Epithelial Cells Few /HPF Urine Bacteria Few (0-FEW/HPF) /HPF Urine Opiates Screen Negative (NEGATIVE) Ur Oxycodone Screen Negative (NEGATIVE) Urine Methadone Screen Negative (NEGATIVE) Ur Barbiturates Screen Negative (NEGATIVE) U Tricyclic Antidepress Negative (NEGATIVE) Ur Phencyclidine Scrn Negative (NEGATIVE) Ur Amphetamine Screen Negative (NEGATIVE) U Methamphetamines Scrn Negative (NEGATIVE) Urine MDMA Screen Negative (NEGATIVE) U Benzodiazepines Scrn Positive H (NEGATIVE) Urine Cocaine Screen Negative (NEGATIVE) U Marijuana (THC) Screen Negative (NEGATIVE) Meds: Medications Discontinued Medications Generic Name Dose Route Start Last Admin Trade Name Freq PRN Reason Stop Dose Admin Al Hydroxide/Mg Hydroxide 30 ml 05/06/17 20:43 05/06/17 20:48 Gi Cocktail PO 05/06/17 20:44 30 ml ONETIME ONE Administration Hydromorphone HCl 1 mg 05/06/17 18:23 05/06/17 18:28 Dilaudid IVPUSH 05/06/17 18:24 1 mg ONETIME ONE Administration Iopamidol 75 ml 05/06/17 19:05 Isovue-300 (61%) IVPUSH 05/06/17 19:06 ONETIME ONE Iopamidol 100 ml 05/06/17 19:38 05/06/17 19:40 Isovue-300 (61%) IVPUSH 05/06/17 19:39 100 ml ONETIME ONE Administration Ondansetron HCl 4 mg 05/06/17 18:17 05/06/17 18:25 Zofran IV 05/06/17 18:18 4 mg ONETIME ONE Administration Sodium Chloride 10 ml 05/06/17 17:52 05/06/17 18:10 Saline Flush FLUSH 10 ml ASDIRECTED PRN Administration Keep Vein Open Departure - Departure Time of Disposition: 20:45 Disposition: Home, Self-Care 01 Condition: Good Clinical Impression: Abdominal pain Qualifiers: Abdominal location: generalized Qualified Code(s): R10.84 - Generalized abdominal pain - Discharge Information Instructions: Abdominal Pain, Adult, [id number] Referrals: PCP,None [Primary Care Provider] - Forms: ED Department Discharge Additional Instructions: Rest Try [place] Diet Try Using TUMS ( otc) For Pain take TYLENOL ES 500mg QID as needed F/U w/ PCP <Farzana Nagel - Last Filed: 05/08/17 07:18> ED HPI GENERAL MEDICAL PROBLEM - General Source of Information: Reports: Patient, Family, RN, RN Notes Reviewed History Limitations: Reports: No Limitations - History of Present Illness INITIAL COMMENTS - FREE TEXT/NARRATIVE: Patient presents with complaint of RUQ abdominal pain. She states it began about 1:45 p.m. today. Saw Justina Graham and labs drawn. Toradol was given. Patient states history of liver disease. At 1530 patient vomited "strings of blood" x4. Admits to darker than normal stools. Denies fever, chills, chest pain, or shortness of breath. Patient states history of alcoholism. States she only rinks about 1 per week. Patient also had vaginal exam done today with STD studies, wet prep and PAP done. 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 Genitourinary History: Reports: Pyelonephritis CARPENTER/LABOR History: Reports: Musculoskeletal History: Reports: Back Pain, Chronic Neurological History: Reports: Migraines Psychiatric History: Reports: Anxiety, Bipolar, Depression, PTSD, Other (See Below) Other Psychiatric History: borderline personality disorder Endocrine/Metabolic History: Reports: None Hematologic History: Reports: None Immunologic History: Reports: None Oncologic (Cancer) History: Reports: None Dermatologic History: Reports: None - Infectious Disease History Infectious Disease History: Reports: Chicken Pox - Past Surgical History HEENT Surgical History: Reports: None Cardiovascular Surgical History: Reports: None Respiratory Surgical History: Reports: None GI Surgical History: Reports: Appendectomy, Cholecystectomy Female Surgical History: Reports: Section, Hysterectomy, Tubal Ligation Endocrine Surgical History: Reports: None Neurological Surgical History: Reports: None Musculoskeletal Surgical History: Reports: Other (See Below) Other Musculoskeletal Surgeries/Procedures:: sergio surgery, knee surgery Dermatological Surgical History: Reports: None Social & Family History - Family History Family Medical History: Noncontributory - Tobacco Use Smoking Status *Q: Current Every Day Smoker Years of Tobacco use: 20 Packs/Tins Daily: 0.5 Second Hand Smoke Exposure: No - Caffeine Use Caffeine Use: Reports: Coffee - Alcohol Use Days Per Week of Alcohol Use: 3 Number of Drinks Per Day: 12 Total Drinks Per Week: 36 - Recreational Drug Use Recreational Drug Use: No ED ROS GENERAL - Review of Systems Review Of Systems: ROS reveals no pertinent complaints other than HPI. ED EXAM, GI/ABD - Physical Exam Exam: See Below Exam Limited By: No Limitations General Appearance: Alert, WD/WN, No Apparent Distress Eyes: Bilateral: Normal Appearance, EOMI Ears: Normal External Exam, Normal Canal, Hearing Grossly Normal, Normal TMs Nose: Normal Inspection, Normal Mucosa, No Blood Throat/Mouth: Normal Inspection, Normal Lips, Normal Teeth, Normal Gums, Normal Oropharynx, Normal Voice, No Airway Compromise Head: Atraumatic, Normocephalic Neck: Normal Inspection, Supple, Non-Tender, Full Range of Motion Respiratory/Chest: No Respiratory Distress, Lungs Clear, Normal Breath Sounds, No Accessory Muscle Use, Chest Non-Tender Cardiovascular: Normal Peripheral Pulses, Regular Rate, Rhythm, No Edema, No Gallop, No JVD, No Murmur, No Rub GI/Abdominal Exam: Tender (to RUQ. ), Other (Bowel sounds positive.) (Female) Exam: Deferred Rectal (Female) Exam: Deferred, Heme - Stool Back Exam: Normal Inspection, Full Range of Motion, NT Extremities: Normal Inspection, Normal Range of Motion, Non-Tender, Normal Capillary Refill, No Pedal Edema Neurological: Alert, Oriented, CN II-XII Intact, Normal Cognition, Normal Gait, Normal Reflexes, No Motor/Sensory Deficits Psychiatric: Normal Affect, Normal Mood Skin Exam: Warm, Dry, Intact, Normal Color, No Rash Lymphatic: No Adenopathy Course - Vital Signs Last Recorded V/S: Last Vital Signs Temp 97.8 F 05/06/17 17:25 Pulse 88 05/06/17 17:25 Resp 16 05/06/17 17:25 BP 130/81 05/06/17 17:25 Pulse Ox 100 05/06/17 17:25 - Orders/Labs/Meds Labs: Laboratory Tests 05/06/17 05/06/17 05/06/17 Range/Units 18:00 18:00 18:00 WBC 8.2 (5.0-10.0) 10^3/uL RBC 4.48 (4.2-5.4) 10^6/uL Hgb 13.6 (12.0-16.0) g/dL Hct 41.2 (37.0-47.0) % MCV 92.0 (80-100) fL MCH 30.4 (27.0-34.0) pg MCHC 33.0 (33.0-35.0) g/dL Plt Count 271 (150-450) 10^3/uL Neut % (Auto) 58.5 (42.2-75.2) % Lymph % (Auto) 31.2 (20.5-50.1) % [place] % (Auto) 7.8 (2-8) % Eos % (Auto) 2.0 (1.0-3.0) % Baso % (Auto) 0.5 (0.0-1.0) % Sodium 138 (135-145) mmol/L Potassium 3.8 (3.6-5.0) mmol/L Chloride 101 (101-111) mmol/L Carbon Dioxide 29.0 (21.0-31.0) mmol/L Anion Gap 11.8 BUN 10 (7-18) mg/dL Creatinine 0.9 (0.6-1.3) mg/dL Est Cr Clr Drug Dosing 61.12 mL/min Estimated GFR (MDRD) > 60 BUN/Creatinine Ratio 11.11 Glucose 105 (74-105) mg/dL Calcium 9.4 (8.4-10.2) mg/dl Total Bilirubin 0.6 (0.2-1.0) mg/dL AST 24 (10-42) IU/L ALT 26 (10-60) IU/L Alkaline Phosphatase 80 (42-121) IU/L Total Protein 6.9 (6.7-8.2) g/dl Albumin 4.1 (3.2-5.5) g/dl Globulin 2.8 Albumin/Globulin Ratio 1.46 Amylase 52 (28-100) U/L Lipase 40 (22-51) U/L Urine Color (YELLOW) Urine Appearance (CLEAR) Urine pH (5.0-9.0) Ur Specific [place] (1.005-1.030) Urine Protein (NEGATIVE) Urine Glucose (UA) (NEGATIVE) Urine Ketones (NEGATIVE) Urine Occult Blood (NEGATIVE) Urine Nitrite (NEGATIVE) Urine Bilirubin (NEGATIVE) Urine Urobilinogen (0.2-1.0) mg/dL Ur Leukocyte Esterase (NEGATIVE) Urine RBC /HPF Urine WBC (0-5/HPF) /HPF Ur Epithelial Cells /HPF Urine Bacteria (0-FEW/HPF) /HPF Urine Opiates Screen (NEGATIVE) Ur Oxycodone Screen (NEGATIVE) Urine Methadone Screen (NEGATIVE) Ur Barbiturates Screen (NEGATIVE) U Tricyclic Antidepress (NEGATIVE) Ur Phencyclidine Scrn (NEGATIVE) Ur Amphetamine Screen (NEGATIVE) U Methamphetamines Scrn (NEGATIVE) Urine MDMA Screen (NEGATIVE) U Benzodiazepines Scrn (NEGATIVE) Urine Cocaine Screen (NEGATIVE) U Marijuana (THC) Screen (NEGATIVE) 11/02/17 11/02/17 Range/Units 18:07 18:07 WBC (5.0-10.0) 10^3/uL RBC (4.2-5.4) 10^6/uL Hgb (12.0-16.0) g/dL Hct (37.0-47.0) % MCV (80-100) fL MCH (27.0-34.0) pg MCHC (33.0-35.0) g/dL Plt Count (150-450) 10^3/uL Neut % (Auto) (42.2-75.2) % Lymph % (Auto) (20.5-50.1) % [place] % (Auto) (2-8) % Eos % (Auto) (1.0-3.0) % Baso % (Auto) (0.0-1.0) % Sodium (135-145) mmol/L Potassium (3.6-5.0) mmol/L Chloride (101-111) mmol/L Carbon Dioxide (21.0-31.0) mmol/L Anion Gap BUN (7-18) mg/dL Creatinine (0.6-1.3) mg/dL Est Cr Clr Drug Dosing mL/min Estimated GFR (MDRD) BUN/Creatinine Ratio Glucose (74-105) mg/dL Calcium (8.4-10.2) mg/dl Total Bilirubin (0.2-1.0) mg/dL AST (10-42) IU/L ALT (10-60) IU/L Alkaline Phosphatase (42-121) IU/L Total Protein (6.7-8.2) g/dl Albumin (3.2-5.5) g/dl Globulin Albumin/Globulin Ratio Amylase (28-100) U/L Lipase (22-51) U/L Urine Color Yellow (YELLOW) Urine Appearance Clear (CLEAR) Urine pH 5.5 (5.0-9.0) Ur Specific [place] <= 1.005 (1.005-1.030) Urine Protein Negative (NEGATIVE) Urine Glucose (UA) Negative (NEGATIVE) Urine Ketones Negative (NEGATIVE) Urine Occult Blood Negative (NEGATIVE) Urine Nitrite Negative (NEGATIVE) Urine Bilirubin Negative (NEGATIVE) Urine Urobilinogen 0.2 (0.2-1.0) mg/dL Ur Leukocyte Esterase Negative (NEGATIVE) Urine RBC 0-5 /HPF Urine WBC 0-5 (0-5/HPF) /HPF Ur Epithelial Cells Few /HPF Urine Bacteria Few (0-FEW/HPF) /HPF Urine Opiates Screen Negative (NEGATIVE) Ur Oxycodone Screen Negative (NEGATIVE) Urine Methadone Screen Negative (NEGATIVE) Ur Barbiturates Screen Negative (NEGATIVE) U Tricyclic Antidepress Negative (NEGATIVE) Ur Phencyclidine Scrn Negative (NEGATIVE) Ur Amphetamine Screen Negative (NEGATIVE) U Methamphetamines Scrn Negative (NEGATIVE) Urine MDMA Screen Negative (NEGATIVE) U Benzodiazepines Scrn Positive H (NEGATIVE) Urine Cocaine Screen Negative (NEGATIVE) U Marijuana (THC) Screen Negative (NEGATIVE) Stool for Occult blood: NEGATIVE Meds: Medications Discontinued Medications Generic Name Dose Route Start Last Admin Trade Name Freq PRN Reason Stop Dose Admin Al Hydroxide/Mg Hydroxide 30 ml 05/06/17 20:43 05/06/17 20:48 Gi Cocktail PO 05/06/17 20:44 30 ml ONETIME ONE Administration Hydromorphone HCl 1 mg 05/06/17 18:23 05/06/17 18:28 Dilaudid IVPUSH 05/06/17 18:24 1 mg ONETIME ONE Administration Iopamidol 75 ml 05/06/17 19:05 Isovue-300 (61%) IVPUSH 05/06/17 19:06 ONETIME ONE Iopamidol 100 ml 05/06/17 19:38 05/06/17 19:40 Isovue-300 (61%) IVPUSH 05/06/17 19:39 100 ml ONETIME ONE Administration Ondansetron HCl 4 mg 05/06/17 18:17 05/06/17 18:25 Zofran IV 05/06/17 18:18 4 mg ONETIME ONE Administration Sodium Chloride 10 ml 05/06/17 17:52 05/06/17 18:10 Saline Flush FLUSH 10 ml ASDIRECTED PRN Administration Keep Vein Open Departure - Departure Condition: Good
[2017-05-06] MEDS ORDERED: Ondansetron 4 MG/2 ML SDV IV ONE (18:17)
[2017-05-06] MEDS ORDERED: HYDROmorphone 1 MG/ML Syringe IVPUSH ONE (18:23)
[2017-05-06 18:30] LABS: CHLORIDE,CL 101 mmol/L (101-111); SODIUM,NA 138 mmol/L (135-145)
[2017-05-06] MEDS ORDERED: Iopamidol 612 MG/ML 75 ML Bottle IVPUSH ONE (19:05)
[2017-05-06] MEDS ORDERED: Iopamidol 612 MG/ML 100 ML Bottle IVPUSH ONE (19:38)
[2017-05-06] MEDS ORDERED: GI Cocktail Oral Solution 30 ML PO ONE (20:43)
== END 2017-05-06 20:58 | disposition home or self-care (01) ==
LOC: DL.ED 17:24
DX: R10.11 Right upper quadrant pain (principal); R10.31 Right lower quadrant pain; F17.210 Nicotine dependence, cigarettes, uncomplicated; Z88.5 Allergy status to narcotic agent; Z88.0 Allergy status to penicillin; Z79.899 Other long term (current) drug therapy
CPT/HCPCS: 36415; 74177; 80053; 80305; 81001; 82150; 82272; 83690; 85025; 96374; 96375; 99284; A9270; J1170; J2405; J7050; Q9967

== ENCOUNTER 2017-05-07 21:40 | Observation (INO) | payer MEDICARE, MEDICAID ==
[2017-05-07] MEDS ORDERED: Sodium Chloride 0.9% 1,000 ML IV ONE (21:49)
--- NOTE | 2017-05-07 21:52 | EDM.PDOCBH ---
ED HPI GENERAL MEDICAL PROBLEM - General Chief Complaint: Behavioral/Psych Stated Complaint: OVERDOSE AMBULANCE Time Seen by Provider: 05/07/17 21:47 Source of Information: Reports: Patient History Limitations: Reports: No Limitations - History of Present Illness INITIAL COMMENTS - FREE TEXT/NARRATIVE: 47 yo white female took 5 days worth of medication approx. 20:30 after argument with boyfriend. Onset: Today Onset Date: 05/07/17 Onset Time: 20:30 Duration: Minutes: Location: Reports: Generalized Improves with: Reports: None Worsens with: Reports: None Associated Symptoms: Reports: No Other Symptoms - Related Data Allergies Allergy/AdvReac Type Severity Reaction Status Date / Time bee venom protein (honey bee) Allergy Airway Verified 04/27/17 15:17 Tightness lurasidone [From Latuda] Allergy Other Verified 04/27/17 15:17 morphine Allergy Chest Pain Verified 04/27/17 15:17 Penicillins Allergy Hives Verified 04/27/17 15:17 Home Meds: Home Meds ALPRAZolam [Alprazolam] 0.25 mg PO QID 03/24/17 [History] ClonazePAM [KlonoPIN] 1 mg PO BEDTIME 03/24/17 [History] Melatonin 6 mg PO BEDTIME 03/24/17 [History] Omeprazole 40 mg PO BID 03/24/17 [History] Potassium Chloride 30 meq PO DAILY 03/24/17 [History] Pramipexole Di-HCl [Mirapex] 2 tab PO BEDTIME 03/24/17 [History] Prazosin HCl [Prazosin] 3 mg PO BEDTIME 03/24/17 [History] Propranolol [Inderal] 80 mg PO DAILY 03/24/17 [History] Venlafaxine HCl [Venlafaxine ER] 75 mg PO BID 03/24/17 [History] atorvaSTATin [Lipitor] 10 mg PO BEDTIME 03/24/17 [History] risperiDONE 1 mg PO BEDTIME 03/24/17 [History] Fesoterodine Fumarate [Toviaz] 8 mg PO DAILY 04/03/17 [History] valACYclovir HCl [Valtrex] 500 mg PO DAILY 04/03/17 [History] Past Medical History HEENT History: Reports: None Cardiovascular History: Reports: Blood Clots/VTE/DVT Respiratory History: Reports: PE, Sleep Apnea, Other (See Below) Other Respiratory History: PE 2016 Gastrointestinal History: Reports: GERD, Irritable Bowel Syndrome, Other (See Below) Other Gastrointestinal History: 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 Genitourinary History: Reports: Pyelonephritis [employer] History: Reports: Musculoskeletal History: Reports: Back Pain, Chronic Neurological History: Reports: Migraines Psychiatric History: Reports: Anxiety, Bipolar, Depression, PTSD, Other (See Below) Other Psychiatric History: borderline personality disorder Endocrine/Metabolic History: Reports: None Hematologic History: Reports: None Immunologic History: Reports: None Oncologic (Cancer) History: Reports: None Dermatologic History: Reports: None - Infectious Disease History Infectious Disease History: Reports: Chicken Pox - Past Surgical History HEENT Surgical History: Reports: None Cardiovascular Surgical History: Reports: None Respiratory Surgical History: Reports: None GI Surgical History: Reports: Appendectomy, Cholecystectomy Female Surgical History: Reports: Section, Hysterectomy, Tubal Ligation Endocrine Surgical History: Reports: None Neurological Surgical History: Reports: None Musculoskeletal Surgical History: Reports: Other (See Below) Other Musculoskeletal Surgeries/Procedures:: sergio surgery, knee surgery Dermatological Surgical History: Reports: None Social & Family History - Family History Family Medical History: Noncontributory - Tobacco Use Smoking Status *Q: Current Every Day Smoker Years of Tobacco use: 20 Packs/Tins Daily: 0.5 Second Hand Smoke Exposure: No - Caffeine Use Caffeine Use: Reports: Coffee - Alcohol Use Days Per Week of Alcohol Use: 3 Number of Drinks Per Day: 12 Total Drinks Per Week: 36 - Recreational Drug Use Recreational Drug Use: No ED ROS GENERAL - Review of Systems Review Of Systems: See Below Constitutional: Reports: No Symptoms HEENT: Reports: No Symptoms Respiratory: Reports: No Symptoms Cardiovascular: Reports: No Symptoms Endocrine: Reports: No Symptoms GI/Abdominal: Reports: No Symptoms : Reports: No Symptoms Musculoskeletal: Reports: No Symptoms Skin: Reports: No Symptoms Neurological: Reports: No Symptoms Psychiatric: Reports: Depression, Mood Lability, Suicidal Ideation Hematologic/Lymphatic: Reports: No Symptoms Immunologic: Reports: No Symptoms ED EXAM, BEHAVIORAL HEALTH - Physical Exam Exam: See Below Exam Limited By: No Limitations General Appearance: Alert, No Apparent Distress, Lethargic Eye Exam: Bilateral Eye: EOMI, PERRL Ears: Normal External Exam Nose: Normal Inspection, Normal Mucosa Throat/Mouth: Normal Inspection, Normal Lips Head: Atraumatic, Normocephalic Neck: Normal Inspection Respiratory/Chest: No Respiratory Distress, Lungs Clear Cardiovascular: Normal Peripheral Pulses, Regular Rate, Rhythm GI/Abdominal: Normal Bowel Sounds Back Exam: Normal Inspection Extremities: Normal Inspection, Normal Range of Motion Neurological: Alert Psychiatric: Depressed Mood, Tearful, Suicidal Thoughts Skin Exam: Warm, Dry COURSE, BEHAVIORAL HEALTH COMP - Course Vital Signs: Last Vital Signs Temp 35.7 C 05/07/17 21:48 Pulse 92 05/07/17 21:48 Resp 16 05/07/17 21:48 BP 118/68 05/07/17 21:48 Pulse Ox 98 05/07/17 21:48 Orders, Labs, Meds: Active Orders 24 hr Category Date Time Status TSH ULTRASENSITIVE [CHEM] Stat Lab 05/07/17 20:55 Received UA W/MICROSCOPIC [URIN] Stat Lab 05/07/17 22:10 Results Dextrose 5%-0.45% NaCl [Dextrose 5%-1/2 NS] 1,000 ml Med 05/07/17 22:15 Active IV ASDIRECTED Medication Orders Dextrose/Sodium Chloride (Dextrose 5%-1/2 Ns) 1,000 mls @ 150 mls/hr IV ASDIRECTED CRUZ Last Admin: 05/07/17 22:15 Dose: 150 mls/hr Laboratory Tests 05/07/17 05/07/17 05/07/17 Range/Units 20:55 20:55 22:10 WBC 7.8 (5.0-10.0) 10^3/uL RBC 4.36 (4.2-5.4) 10^6/uL Hgb 13.5 (12.0-16.0) g/dL Hct 40.4 (37.0-47.0) % MCV 92.7 (80-100) fL MCH 31.0 (27.0-34.0) pg MCHC 33.4 (33.0-35.0) g/dL Plt Count 248 (150-450) 10^3/uL Neut % (Auto) 50.4 (42.2-75.2) % Lymph % (Auto) 39.9 (20.5-50.1) % Benzie % (Auto) 6.0 (2-8) % Eos % (Auto) 2.9 (1.0-3.0) % Baso % (Auto) 0.8 (0.0-1.0) % Sodium 140 (135-145) mmol/L Potassium 3.6 (3.6-5.0) mmol/L Chloride 106 (101-111) mmol/L Carbon Dioxide 25.0 (21.0-31.0) mmol/L Anion Gap 12.6 BUN 8 (7-18) mg/dL Creatinine 0.9 (0.6-1.3) mg/dL Est Cr Clr Drug Dosing 62.52 mL/min Estimated GFR (MDRD) > 60 BUN/Creatinine Ratio 8.88 Glucose 89 (74-105) mg/dL Calcium 9.0 (8.4-10.2) mg/dl Magnesium 2.1 (1.8-2.5) mg/dL Total Bilirubin 0.5 (0.2-1.0) mg/dL AST 26 (10-42) IU/L ALT 28 (10-60) IU/L Alkaline Phosphatase 74 (42-121) IU/L Total Protein 6.7 (6.7-8.2) g/dl Albumin 4.0 (3.2-5.5) g/dl Globulin 2.7 Albumin/Globulin Ratio 1.48 Urine Color (YELLOW) Urine Appearance (CLEAR) Urine pH (5.0-9.0) Ur Specific [place] (1.005-1.030) Urine Protein (NEGATIVE) Urine Glucose (UA) (NEGATIVE) Urine Ketones (NEGATIVE) Urine Occult Blood (NEGATIVE) Urine Nitrite (NEGATIVE) Urine Bilirubin (NEGATIVE) Urine Urobilinogen (0.2-1.0) mg/dL Ur Leukocyte Esterase (NEGATIVE) Urine HCG, Qual Negative Salicylates 8.1 Urine Opiates Screen (NEGATIVE) Ur Oxycodone Screen (NEGATIVE) Urine Methadone Screen (NEGATIVE) Acetaminophen < 10 Ur Barbiturates Screen (NEGATIVE) U Tricyclic Antidepress (NEGATIVE) Ur Phencyclidine Scrn (NEGATIVE) Ur Amphetamine Screen (NEGATIVE) U Methamphetamines Scrn (NEGATIVE) Urine MDMA Screen (NEGATIVE) U Benzodiazepines Scrn (NEGATIVE) Urine Cocaine Screen (NEGATIVE) U Marijuana (THC) Screen (NEGATIVE) Ethyl Alcohol 59 mg/dL 05/07/17 05/07/17 Range/Units 22:10 22:10 WBC (5.0-10.0) 10^3/uL RBC (4.2-5.4) 10^6/uL Hgb (12.0-16.0) g/dL Hct (37.0-47.0) % MCV (80-100) fL MCH (27.0-34.0) pg MCHC (33.0-35.0) g/dL Plt Count (150-450) 10^3/uL Neut % (Auto) (42.2-75.2) % Lymph % (Auto) (20.5-50.1) % Benzie % (Auto) (2-8) % Eos % (Auto) (1.0-3.0) % Baso % (Auto) (0.0-1.0) % Sodium (135-145) mmol/L Potassium (3.6-5.0) mmol/L Chloride (101-111) mmol/L Carbon Dioxide (21.0-31.0) mmol/L Anion Gap BUN (7-18) mg/dL Creatinine (0.6-1.3) mg/dL Est Cr Clr Drug Dosing mL/min Estimated GFR (MDRD) BUN/Creatinine Ratio Glucose (74-105) mg/dL Calcium (8.4-10.2) mg/dl Magnesium (1.8-2.5) mg/dL Total Bilirubin (0.2-1.0) mg/dL AST (10-42) IU/L ALT (10-60) IU/L Alkaline Phosphatase (42-121) IU/L Total Protein (6.7-8.2) g/dl Albumin (3.2-5.5) g/dl Globulin Albumin/Globulin Ratio Urine Color Yellow (YELLOW) Urine Appearance Clear (CLEAR) Urine pH 5.5 (5.0-9.0) Ur Specific [place] <= 1.005 (1.005-1.030) Urine Protein Negative (NEGATIVE) Urine Glucose (UA) Negative (NEGATIVE) Urine Ketones Negative (NEGATIVE) Urine Occult Blood Negative (NEGATIVE) Urine Nitrite Negative (NEGATIVE) Urine Bilirubin Negative (NEGATIVE) Urine Urobilinogen 0.2 (0.2-1.0) mg/dL Ur Leukocyte Esterase Negative (NEGATIVE) Urine HCG, Qual Salicylates Urine Opiates Screen Negative (NEGATIVE) Ur Oxycodone Screen Negative (NEGATIVE) Urine Methadone Screen Negative (NEGATIVE) Acetaminophen Ur Barbiturates Screen Negative (NEGATIVE) U Tricyclic Antidepress Negative (NEGATIVE) Ur Phencyclidine Scrn Negative (NEGATIVE) Ur Amphetamine Screen Negative (NEGATIVE) U Methamphetamines Scrn Negative (NEGATIVE) Urine MDMA Screen Negative (NEGATIVE) U Benzodiazepines Scrn Positive H (NEGATIVE) Urine Cocaine Screen Negative (NEGATIVE) U Marijuana (THC) Screen Negative (NEGATIVE) Ethyl Alcohol mg/dL Medications Generic Name Dose Route Start Last Admin Trade Name Freq PRN Reason Stop Dose Admin Dextrose/Sodium Chloride 1,000 mls @ 150 mls/hr 05/07/17 22:15 05/07/17 22:15 Dextrose 5%-1/2 Ns IV 150 mls/hr ASDIRECTED CRUZ Administration Discontinued Medications Generic Name Dose Route Start Last Admin Trade Name Freq PRN Reason Stop Dose Admin Sodium Chloride 1,000 mls @ 999 mls/hr 05/07/17 21:49 05/07/17 22:15 Normal Saline IV 05/07/17 22:49 Not Given .BOLUS ONE Departure - Departure Time of Disposition: 22:42 Disposition: Admitted As Inpatient 66 Condition: Fair Clinical Impression: Drug overdose, multiple drugs Qualifiers: Encounter type: initial encounter Injury intent: undetermined intent Qualified Code(s): T50.904A - Poisoning by unspecified drugs, medicaments and biological substances, undetermined, initial encounter - Discharge Information Referrals: Naresh Myers MD [Physician] - Forms: ED Department Discharge - My Orders Last 24 Hours: My Active Orders 05/07/17 20:55 TSH ULTRASENSITIVE [CHEM] Stat 05/07/17 22:10 UA W/MICROSCOPIC [URIN] Stat 05/07/17 22:15 Dextrose 5%-0.45% NaCl [Dextrose 5%-1/2 NS] 1,000 ml IV ASDIRECTED - Assessment/Plan Last 24 Hours: My Active Orders 05/07/17 20:55 TSH ULTRASENSITIVE [CHEM] Stat 05/07/17 22:10 UA W/MICROSCOPIC [URIN] Stat 05/07/17 22:15 Dextrose 5%-0.45% NaCl [Dextrose 5%-1/2 NS] 1,000 ml IV ASDIRECTED
[2017-05-07] MEDS: Dextrose 5%-0.45% NaCl 1,000 ML IV SCH (22:15)
[2017-05-07 22:30] LABS: CHLORIDE,CL 106 mmol/L (101-111); SODIUM,NA 140 mmol/L (135-145)
[2017-05-07 22:31] LABS: ACETAMINOPHEN < 10
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
[2017-05-08 02:45] LABS: ACETAMINOPHEN < 10
[2017-05-08] MEDS: Dextrose 5%-0.45% NaCl 1,000 ML IV SCH (04:57)
[2017-05-08 07:00] LABS: CHLORIDE,CL 106 mmol/L (101-111); SODIUM,NA 140 mmol/L (135-145)
[2017-05-08 07:01] LABS: ACETAMINOPHEN < 10
[2017-05-08 10:25] LABS: ACETAMINOPHEN < 10
[2017-05-08] MEDS: Enoxaparin 40 MG/0.4 ML Syringe SUBCUT SCH (10:33)
[2017-05-08] MEDS ORDERED: Sodium Bicarbonate 100 MEQ in Dextrose 5% in Water 1,000 ML IV ONE ×2 (11:12)
[2017-05-08] MEDS ORDERED: Activated Charcoal/Water Susp 50 GM/240 ML Tube PO ONE (11:24)
[2017-05-08 12:01] LABS: O2 DELIVERY DEVICE ROOM AIR
[2017-05-08 12:02] LABS: ALLEN TEST y
[2017-05-08 12:03] LABS: BASE EXCESS ARTERIAL -1 mmol/L ((-2)-(+3)); O2 SATURATION ARTERIAL 96 % (95-100); PCO2 ARTERIAL 38 mmHg (35-45); PO2 ARTERIAL 83 mmHg (70-100)
--- NOTE | 2017-05-08 14:22 | PN ---
DATE: 05/08/2017 SUBJECTIVE: Mrs. Ayanna Gilman is a 47-year-old female with medical history significant for anxiety, depression, bipolar disorder, history of posttraumatic stress disorder, gastroesophageal reflux disease, admitted to the hospital after she overdosed on multiple medications including Effexor, Risperdal, Minipress, Mirapex, Klonopin, and also aspirin as per the patient this morning. For the last 24 hours, the patient remained hemodynamically stable. She denies any chest pain. No shortness of breath. No abdominal pain. No nausea. No vomiting. No diarrhea. She was noted to have steadily increasing levels of salicylate up to 28 this morning. REVIEW OF SYSTEMS: Cardiovascular, respiratory, gastrointestinal, neurology, constitutional were all evaluated. PHYSICAL EXAMINATION: Vital Signs: Temperature of 98.6, pulse of 88, respiratory rate of 20, saturating 98% on room air, and blood pressure 112/72. General Appearance: The patient is alert and oriented to time, place, and person. Follows commands spontaneously. Cardiovascular System: S1 and S2 heard with normal intensity. No gallops. Respiratory System: Clear to auscultation bilaterally. No wheeze. No crepitations. Abdomen: Soft. Bowel sounds positive. Nontender. No rigidity. Extremities: No edema in bilateral lower extremities. Neurology: No gross focal neurological deficits. MEDICATIONS: Reviewed. Continue with: 1. Lovenox 40 mg subcutaneous daily. 2. Protonix 40 mg IV daily. 3. Sodium bicarbonate infusion. 4. Activated charcoal 50 g one time dose. LABORATORY DATA: Reviewed. 1. Hemoglobin 12.2, hematocrit 37.9, platelet count 226, and WBC 6.5. 2. Sodium 140, potassium 3.9, chloride 106, bicarb 25. BUN 8, creatinine 0.9, glucose 102. Magnesium 2.1. AST 21, ALT 23, alkaline phosphatase 62. 3. Salicylate level has gone up to 28 this morning, but repeat salicylate now this morning is 26. Tylenol level less than 10 x4. 4. Arterial blood gas analysis shows pH of 7.41, pCO2 of 38, pO2 of 83, bicarb of 24, and saturating at 96% on room air. ASSESSMENT: 1. Salicylate overdose. 2. Multiple drug overdose. 3. Suicide ideation, resolved. 4. History of anxiety depression. 5. Bipolar disorder. 6. Posttraumatic stress disorder. PLAN: 1. Salicylate overdose. The patient was noted to have salicylate level up to 28, which was less than 30; and this morning, a repeat salicylate level is 26. We gave her one dose of activated charcoal 50 g, and also, we started her on sodium bicarbonate infusion. We will continue with sodium bicarbonate infusion and D5W, and we will closely monitor her salicylate level. If her salicylate level seems to be turning above 30, then she might need Intensive Care Unit admission and needs high level of care, but currently, her salicylate level is trending down to 26, so hopefully, it will be trending down. Continue with IV hydration. Keep her in euvolemic status. Her respiratory status seems to be in acceptable range. She is not tachypneic. Her depth of breathing is also not very hard. Her minute ventilation seems to be in normal ranges. We will closely follow. We will recheck a CMP in the a.m. Her kidney function is normal. Closely follow. 2. Closely monitor in the Telemetry Unit. Continue to hold her home medications for now. 3. Tobacco use. The patient was educated about tobacco cessation at the time of admission. Continue nicotine transdermal patch at this time. 4. DVT prophylaxis. Continue with Lovenox. 5. Gastroesophageal reflux disease. The patient had history of esophagitis in the past. She has overdosed on the salicylate. I gave her some oral activated charcoal. We will also give her IV Protonix at this time to minimize any gastritis or esophagitis from salicylate overdosing. 6. Discussed with the patient regarding the plan of care and explained about the treatment goals and options which the patient understands and verbalized the same. 7. Depression and anxiety. The patient denies any ongoing suicidal thoughts or ideation. She does not have any suicidal thoughts at this time. [facility] /[id number]
[2017-05-08] MEDS: Pantoprazole 40 MG Vial IVPUSH SCH (14:47)
[2017-05-09 07:11] LABS: CHLORIDE,CL 104 mmol/L (101-111); SODIUM,NA 141 mmol/L (135-145)
[2017-05-09] MEDS: Enoxaparin 40 MG/0.4 ML Syringe SUBCUT SCH (08:14)
[2017-05-09] MEDS: Pantoprazole 40 MG Vial IVPUSH SCH (08:15)
[2017-05-09 11:02] VITALS: BP 144/63
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
--- NOTE | 2017-05-11 11:58 | EKG ---
05/07/2017- IMANI IRWIN - EKG done on a 47-year-old female showing sinus rhythm with heart rate of 92 beats per minute, normal axis, normal intervals, no acute ST wave changes. [facility] /[id number]
== END 2017-05-09 12:59 | disposition home or self-care (01) ==
LOC: DL.ED 21:40 → UNDOADMIN 23:02 → DL.MS 23:02 → INTOOBSV 23:40 → DL.MS 23:40
PROVIDERS: ADMIT Internal Medicine; ATTEND Internal Medicine
DX: T44.6X2A Poisoning by alpha-adrenoreceptor antagonists, intentional self-harm, initial encounter (principal); T42.8X2A Poisoning by antiparkinsonism drugs and other central muscle-tone depressants, intentional self-harm, initial encounter; T42.4X2A Poisoning by benzodiazepines, intentional self-harm, initial encounter; T39.092A Poisoning by salicylates, intentional self-harm, initial encounter; F41.9 Anxiety disorder, unspecified; F31.9 Bipolar disorder, unspecified; F43.10 Post-traumatic stress disorder, unspecified; K21.9 Gastro-esophageal reflux disease without esophagitis; F17.210 Nicotine dependence, cigarettes, uncomplicated; Z90.710 Acquired absence of both cervix and uterus; Z98.890 Other specified postprocedural states; Z79.899 Other long term (current) drug therapy
CPT/HCPCS: 36415; 36600; 80053; 80305; 81001; 81003; 81025; 82803; 83735; 84443; 85025; 85027; 93005; 93010; 96361; 96372; 96374; 96376; 99284; 99285; C9113; G0378; G0480; J1650; J7042; J7060; 96360

== ENCOUNTER 2017-06-11 08:56 | Emergency (ER) | payer MEDICARE, MEDICAID ==
[2017-06-11 09:11] VITALS: BP 137/89
--- NOTE | 2017-06-11 09:31 | EDM.PDOC ---
ED HPI GENERAL MEDICAL PROBLEM - General Chief Complaint: Upper Extremity Injury/Pain Stated Complaint: POSSIBLE FX FINGER. [phone] Time Seen by Provider: 06/11/17 09:31 Source of Information: Reports: Patient, RN, RN Notes Reviewed History Limitations: Reports: No Limitations - History of Present Illness INITIAL COMMENTS - FREE TEXT/NARRATIVE: Pt states she was moving some storage tubs and boxes when a full one fell on her left ring finger. She states it is a #7/10 throbbing pain. She states the nail lifted a little bit. Onset: Sudden Onset Date: 06/10/17 Location: Reports: Upper Extremity, Left Quality: Reports: Throbbing Severity: Moderate Improves with: Reports: None Worsens with: Reports: Movement Associated Symptoms: Reports: No Other Symptoms Left Hand Pain Score (Numeric/FACES): 7 - Related Data Allergies Allergy/AdvReac Type Severity Reaction Status Date / Time bee venom protein (honey bee) Allergy Airway Verified 06/11/17 09:11 Tightness lurasidone [From Latuda] Allergy Other Verified 06/11/17 09:11 Penicillins Allergy Hives Verified 06/11/17 09:11 Home Meds: Home Meds ALPRAZolam [Alprazolam] 0.25 mg PO QID 03/24/17 [History] Melatonin 10 mg PO BEDTIME 03/24/17 [History] Omeprazole 40 mg PO BID 03/24/17 [History] Potassium Chloride 30 meq PO DAILY 03/24/17 [History] Pramipexole Di-HCl [Mirapex] 2 tab PO BEDTIME 03/24/17 [History] Prazosin HCl [Prazosin] 3 mg PO BEDTIME 03/24/17 [History] Venlafaxine HCl [Venlafaxine ER] 75 mg PO BID 03/24/17 [History] atorvaSTATin [Lipitor] 10 mg PO BEDTIME 03/24/17 [History] risperiDONE 1 mg PO BEDTIME 03/24/17 [History] Fesoterodine Fumarate [Toviaz] 8 mg PO DAILY 04/03/17 [History] valACYclovir HCl [Valtrex] 500 mg PO DAILY 04/03/17 [History] Propranolol [Inderal LA] 80 mg PO DAILY 05/08/17 [History] Past Medical History HEENT History: Reports: None Cardiovascular History: Reports: Blood Clots/VTE/DVT Respiratory History: Reports: PE, Sleep Apnea, Other (See Below) Other Respiratory History: PE 2016 Gastrointestinal History: Reports: GERD, Irritable Bowel Syndrome, Other (See Below) Other Gastrointestinal History: 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 Genitourinary History: Reports: Pyelonephritis 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: Musculoskeletal History: Reports: Back Pain, Chronic Neurological History: Reports: Migraines Psychiatric History: Reports: Anxiety, Bipolar, Depression, PTSD, Other (See Below) Other Psychiatric History: borderline personality disorder Endocrine/Metabolic History: Reports: None Hematologic History: Reports: None Immunologic History: Reports: None Oncologic (Cancer) History: Reports: None Dermatologic History: Reports: None - Infectious Disease History Infectious Disease History: Reports: Chicken Pox - Past Surgical History Head Surgeries/Procedures: Reports: None HEENT Surgical History: Reports: None Cardiovascular Surgical History: Reports: None Respiratory Surgical History: Reports: None GI Surgical History: Reports: Appendectomy, Cholecystectomy Female Surgical History: Reports: Section, Hysterectomy, Tubal Ligation Endocrine Surgical History: Reports: None Neurological Surgical History: Reports: None Musculoskeletal Surgical History: Reports: Other (See Below) Other Musculoskeletal Surgeries/Procedures:: sergio surgery, knee surgery Dermatological Surgical History: Reports: None Social & Family History - Family History Family Medical History: Noncontributory Cardiac: Reports: Hypertension Endocrine/Metabolic: Reports: Diabetes, Type I, Diabetes, type II Other Endocrine/Metabolic Family History: client unable to recall what type of diabetes is in her family Oncologic: Reports: Lung - Tobacco Use Smoking Status *Q: Current Every Day Smoker Years of Tobacco use: 20 Packs/Tins Daily: 1 Used Tobacco, but Quit: No Second Hand Smoke Exposure: No - Caffeine Use Caffeine Use: Reports: Coffee, Soda - Alcohol Use Days Per Week of Alcohol Use: 1 Number of Drinks Per Day: 3 Total Drinks Per Week: 3 - Recreational Drug Use Recreational Drug Use: No Review of Systems - Review of Systems Review Of Systems: ROS reveals no pertinent complaints other than HPI. ED EXAM, GENERAL - Physical Exam Exam: See Below Exam Limited By: No Limitations General Appearance: Alert, WD/WN, No Apparent Distress Eye Exam: Bilateral Eye: EOMI, Normal Inspection Ears: Normal External Exam, Hearing Grossly Normal Nose: Normal Inspection Throat/Mouth: Normal Inspection, Normal Lips, Normal Voice, No Airway Compromise Head: Atraumatic, Normocephalic Neck: Normal Inspection, Supple, Non-Tender, Full Range of Motion Respiratory/Chest: No Respiratory Distress, Lungs Clear, Normal Breath Sounds, No Accessory Muscle Use, Chest Non-Tender Cardiovascular: Normal Peripheral Pulses, Regular Rate, Rhythm, No Edema, No Gallop, No JVD, No Murmur, No Rub GI/Abdominal: Normal Bowel Sounds (Female) Exam: Deferred Rectal (Female) Exam: Deferred Back Exam: Normal Inspection, Full Range of Motion Extremities: Joint Swelling (left ring finger), Limited Range of Motion (left ring finger) Neurological: Alert, Oriented, Normal Cognition, Normal Gait, No Motor/Sensory Deficits Psychiatric: Normal Affect, Normal Mood Skin Exam: Warm, Dry, Intact, Normal Color, No Rash Lymphatic: No Adenopathy Course - Vital Signs Last Recorded V/S: Last Vital Signs Temp 97.2 F 06/11/17 09:07 Pulse 92 06/11/17 09:07 Resp 16 06/11/17 09:07 BP 137/89 06/11/17 09:07 Pulse Ox 99 06/11/17 09:07 - Radiology Interpretation Free Text/Narrative:: Hand xray: No acute findings See rad report Departure - Departure Time of Disposition: 10:22 Disposition: Home, Self-Care 01 Condition: Good Clinical Impression: Contusion of left ring finger with damage to nail Qualifiers: Encounter type: initial encounter Qualified Code(s): S60.142A - Contusion of left ring finger with damage to nail, initial encounter - Discharge Information Instructions: Cast or Splint Care, [id number], Contusion, [id number] Referrals: Anastasia Reyes MD [Primary Care Provider] - Forms: ED Department Discharge Additional Instructions: Wear splint as long as you feel it is tender. Ice the area as tolerated. Follow up with your primary care facility as needed.
--- NOTE | 2017-06-11 10:14 | CR ---
Clinical history: 47-year-old female "jammed" ring finger. Interpretation: No foreign bodies. Early arthritic changes involving the first metacarpophalangeal and all interphala ngeal joints of fingers. No sign of left ring or adjacent small/middle finger fracture/dislocation. No fractures left hand or wrist identified.
== END 2017-06-11 10:30 | disposition home or self-care (01) ==
LOC: DL.ED 08:56
DX: S60.142A Contusion of left ring finger with damage to nail, initial encounter (principal); K21.9 Gastro-esophageal reflux disease without esophagitis; F32.9 Major depressive disorder, single episode, unspecified; F17.210 Nicotine dependence, cigarettes, uncomplicated; Z79.899 Other long term (current) drug therapy; Z88.0 Allergy status to penicillin; Z88.8 Allergy status to other drugs, medicaments and biological substances; Z91.030 Bee allergy status; W20.8XXA Other cause of strike by thrown, projected or falling object, initial encounter
CPT/HCPCS: 29130; 73130; 99284; L3999; 99283

== ENCOUNTER 2017-06-16 17:30 | Emergency (ER) | payer MEDICARE, MEDICAID ==
[2017-06-16] MEDS ORDERED: Sodium Chloride 0.9% 1,000 ML IV ONE (18:17)
[2017-06-16 18:19] LABS: ACETAMINOPHEN 24.7; CHLORIDE,CL 101 mmol/L (101-111); SODIUM,NA 134 mmol/L (135-145)
--- NOTE | 2017-06-16 18:33 | EDM.PDOCBH ---
<Pilar Figueroa - Last Filed: 06/17/17 04:22> ED HPI GENERAL MEDICAL PROBLEM - General Chief Complaint: Drug or Alcohol Abuse Stated Complaint: [id number] TOOK A BUNCH OF PILLS ASPRIN Time Seen by Provider: 06/16/17 18:20 - Related Data Allergies Allergy/AdvReac Type Severity Reaction Status Date / Time bee venom protein (honey bee) Allergy Airway Verified 06/11/17 09:11 Tightness lurasidone [From Latuda] Allergy Other Verified 06/11/17 09:11 Penicillins Allergy Hives Verified 06/11/17 09:11 Home Meds: Home Meds ALPRAZolam [Alprazolam] 0.25 mg PO QID 03/24/17 [History] Melatonin 10 mg PO BEDTIME 03/24/17 [History] Omeprazole 40 mg PO BID 03/24/17 [History] Potassium Chloride 30 meq PO DAILY 03/24/17 [History] Pramipexole Di-HCl [Mirapex] 2 tab PO BEDTIME 03/24/17 [History] Prazosin HCl [Prazosin] 3 mg PO BEDTIME 03/24/17 [History] Venlafaxine HCl [Venlafaxine ER] 75 mg PO BID 03/24/17 [History] atorvaSTATin [Lipitor] 10 mg PO BEDTIME 03/24/17 [History] risperiDONE 1 mg PO BEDTIME 03/24/17 [History] Fesoterodine Fumarate [Toviaz] 8 mg PO DAILY 04/03/17 [History] valACYclovir HCl [Valtrex] 500 mg PO DAILY 04/03/17 [History] Propranolol [Inderal LA] 80 mg PO DAILY 05/08/17 [History] COURSE, BEHAVIORAL HEALTH COMP - Course Vital Signs: Last Vital Signs Temp 36.7 C 06/16/17 18:02 Pulse 90 06/16/17 19:15 Resp 22 H 06/16/17 19:15 BP 104/61 06/16/17 19:15 Pulse Ox 98 06/16/17 19:15 Orders, Labs, Meds: Active Orders 24 hr Category Date Time Status EKG Documentation Completion [RC] URGENT Care 06/16/17 18:17 Active Glucose [Blood Glucose Check, Bedside] [RC] ONETIME Care 06/16/17 19:41 Active Laboratory Tests 12/06/16/17 06/16/17 Range/Units 17:53 17:53 18:35 WBC 13.8 H (5.0-10.0) 10^3/uL RBC 5.15 (4.2-5.4) 10^6/uL Hgb 15.5 D (12.0-16.0) g/dL Hct 45.4 (37.0-47.0) % MCV 88.2 D (80-100) fL MCH 30.1 (27.0-34.0) pg MCHC 34.1 (33.0-35.0) g/dL Plt Count 343 D (150-450) 10^3/uL Neut % (Auto) 70.1 (42.2-75.2) % Lymph % (Auto) 20.7 (20.5-50.1) % [place] % (Auto) 7.4 (2-8) % Eos % (Auto) 1.4 (1.0-3.0) % Baso % (Auto) 0.4 (0.0-1.0) % ABG pH 7.52 H (7.35-7.45) ABG pCO2 29 L (35-45) mmHg ABG pO2 100 (70-100) mmHg ABG HCO3 23.0 (22-26) mmol/L ABG O2 Saturation 98 (95-100) % ABG Base Excess 0 ((-2)-(+3)) mmol/L Goran Test Y O2 Delivery Device Room air Sodium 134 L (135-145) mmol/L Potassium 4.4 (3.6-5.0) mmol/L Chloride 101 (101-111) mmol/L Carbon Dioxide 20.0 L (21.0-31.0) mmol/L Anion Gap 17.4 BUN 10 (7-18) mg/dL Creatinine 1.0 (0.6-1.3) mg/dL Est Cr Clr Drug Dosing 55.01 mL/min Estimated GFR (MDRD) 59 BUN/Creatinine Ratio 10.00 Glucose 111 H (74-105) mg/dL POC Glucose (70-105) mg/dl Calcium 9.9 (8.4-10.2) mg/dl Magnesium 1.9 (1.8-2.5) mg/dL Total Bilirubin 0.4 (0.2-1.0) mg/dL AST 21 (10-42) IU/L ALT 21 (10-60) IU/L Alkaline Phosphatase 86 (42-121) IU/L Total Protein 8.1 (6.7-8.2) g/dl Albumin 4.1 (3.2-5.5) g/dl Globulin 4.0 Albumin/Globulin Ratio 1.03 Amylase 77 (28-100) U/L Lipase 64 H (22-51) U/L Urine Color (YELLOW) Urine Appearance (CLEAR) Urine pH (5.0-9.0) Ur Specific [place] (1.005-1.030) Urine Protein (NEGATIVE) Urine Glucose (UA) (NEGATIVE) Urine Ketones (NEGATIVE) Urine Occult Blood (NEGATIVE) Urine Nitrite (NEGATIVE) Urine Bilirubin (NEGATIVE) Urine Urobilinogen (0.2-1.0) mg/dL Ur Leukocyte Esterase (NEGATIVE) Urine RBC /HPF Urine WBC (0-5/HPF) /HPF Ur Epithelial Cells /HPF Urine Bacteria (0-FEW/HPF) /HPF Urine Mucus /LPF Urine HCG, Qual Salicylates 85.5 Urine Opiates Screen (NEGATIVE) Ur Oxycodone Screen (NEGATIVE) Urine Methadone Screen (NEGATIVE) Acetaminophen 24.7 Ur Barbiturates Screen (NEGATIVE) U Tricyclic Antidepress (NEGATIVE) Ur Phencyclidine Scrn (NEGATIVE) Ur Amphetamine Screen (NEGATIVE) U Methamphetamines Scrn (NEGATIVE) Urine MDMA Screen (NEGATIVE) U Benzodiazepines Scrn (NEGATIVE) Urine Cocaine Screen (NEGATIVE) U Marijuana (THC) Screen (NEGATIVE) Ethyl Alcohol < 5 mg/dL 06/16/17 06/16/17 06/16/17 Range/Units 18:50 18:50 18:50 WBC (5.0-10.0) 10^3/uL RBC (4.2-5.4) 10^6/uL Hgb (12.0-16.0) g/dL Hct (37.0-47.0) % MCV (80-100) fL MCH (27.0-34.0) pg MCHC (33.0-35.0) g/dL Plt Count (150-450) 10^3/uL Neut % (Auto) (42.2-75.2) % Lymph % (Auto) (20.5-50.1) % [place] % (Auto) (2-8) % Eos % (Auto) (1.0-3.0) % Baso % (Auto) (0.0-1.0) % ABG pH (7.35-7.45) ABG pCO2 (35-45) mmHg ABG pO2 (70-100) mmHg ABG HCO3 (22-26) mmol/L ABG O2 Saturation (95-100) % ABG Base Excess ((-2)-(+3)) mmol/L Goran Test O2 Delivery Device Sodium (135-145) mmol/L Potassium (3.6-5.0) mmol/L Chloride (101-111) mmol/L Carbon Dioxide (21.0-31.0) mmol/L Anion Gap BUN (7-18) mg/dL Creatinine (0.6-1.3) mg/dL Est Cr Clr Drug Dosing mL/min Estimated GFR (MDRD) BUN/Creatinine Ratio Glucose (74-105) mg/dL POC Glucose (70-105) mg/dl Calcium (8.4-10.2) mg/dl Magnesium (1.8-2.5) mg/dL Total Bilirubin (0.2-1.0) mg/dL AST (10-42) IU/L ALT (10-60) IU/L Alkaline Phosphatase (42-121) IU/L Total Protein (6.7-8.2) g/dl Albumin (3.2-5.5) g/dl Globulin Albumin/Globulin Ratio Amylase (28-100) U/L Lipase (22-51) U/L Urine Color Yellow (YELLOW) Urine Appearance Slightly cloudy (CLEAR) Urine pH 7.0 (5.0-9.0) Ur Specific [place] 1.020 (1.005-1.030) Urine Protein Negative (NEGATIVE) Urine Glucose (UA) Negative (NEGATIVE) Urine Ketones Negative (NEGATIVE) Urine Occult Blood Negative (NEGATIVE) Urine Nitrite Negative (NEGATIVE) Urine Bilirubin Negative (NEGATIVE) Urine Urobilinogen 0.2 (0.2-1.0) mg/dL Ur Leukocyte Esterase Negative (NEGATIVE) Urine RBC 0-5 /HPF Urine WBC 0-5 (0-5/HPF) /HPF Ur Epithelial Cells Moderate H /HPF Urine Bacteria Few (0-FEW/HPF) /HPF Urine Mucus Few H /LPF Urine HCG, Qual Negative Salicylates Urine Opiates Screen Negative (NEGATIVE) Ur Oxycodone Screen Negative (NEGATIVE) Urine Methadone Screen Negative (NEGATIVE) Acetaminophen Ur Barbiturates Screen Negative (NEGATIVE) U Tricyclic Antidepress Positive H (NEGATIVE) Ur Phencyclidine Scrn Negative (NEGATIVE) Ur Amphetamine Screen Negative (NEGATIVE) U Methamphetamines Scrn Negative (NEGATIVE) Urine MDMA Screen Negative (NEGATIVE) U Benzodiazepines Scrn Positive H (NEGATIVE) Urine Cocaine Screen Negative (NEGATIVE) U Marijuana (THC) Screen Negative (NEGATIVE) Ethyl Alcohol mg/dL 06/16/17 Range/Units 19:42 WBC (5.0-10.0) 10^3/uL RBC (4.2-5.4) 10^6/uL Hgb (12.0-16.0) g/dL Hct (37.0-47.0) % MCV (80-100) fL MCH (27.0-34.0) pg MCHC (33.0-35.0) g/dL Plt Count (150-450) 10^3/uL Neut % (Auto) (42.2-75.2) % Lymph % (Auto) (20.5-50.1) % [place] % (Auto) (2-8) % Eos % (Auto) (1.0-3.0) % Baso % (Auto) (0.0-1.0) % ABG pH (7.35-7.45) ABG pCO2 (35-45) mmHg ABG pO2 (70-100) mmHg ABG HCO3 (22-26) mmol/L ABG O2 Saturation (95-100) % ABG Base Excess ((-2)-(+3)) mmol/L Goran Test O2 Delivery Device Sodium (135-145) mmol/L Potassium (3.6-5.0) mmol/L Chloride (101-111) mmol/L Carbon Dioxide (21.0-31.0) mmol/L Anion Gap BUN (7-18) mg/dL Creatinine (0.6-1.3) mg/dL Est Cr Clr Drug Dosing mL/min Estimated GFR (MDRD) BUN/Creatinine Ratio Glucose (74-105) mg/dL POC Glucose 109 H (70-105) mg/dl Calcium (8.4-10.2) mg/dl Magnesium (1.8-2.5) mg/dL Total Bilirubin (0.2-1.0) mg/dL AST (10-42) IU/L ALT (10-60) IU/L Alkaline Phosphatase (42-121) IU/L Total Protein (6.7-8.2) g/dl Albumin (3.2-5.5) g/dl Globulin Albumin/Globulin Ratio Amylase (28-100) U/L Lipase (22-51) U/L Urine Color (YELLOW) Urine Appearance (CLEAR) Urine pH (5.0-9.0) Ur Specific [place] (1.005-1.030) Urine Protein (NEGATIVE) Urine Glucose (UA) (NEGATIVE) Urine Ketones (NEGATIVE) Urine Occult Blood (NEGATIVE) Urine Nitrite (NEGATIVE) Urine Bilirubin (NEGATIVE) Urine Urobilinogen (0.2-1.0) mg/dL Ur Leukocyte Esterase (NEGATIVE) Urine RBC /HPF Urine WBC (0-5/HPF) /HPF Ur Epithelial Cells /HPF Urine Bacteria (0-FEW/HPF) /HPF Urine Mucus /LPF Urine HCG, Qual Salicylates Urine Opiates Screen (NEGATIVE) Ur Oxycodone Screen (NEGATIVE) Urine Methadone Screen (NEGATIVE) Acetaminophen Ur Barbiturates Screen (NEGATIVE) U Tricyclic Antidepress (NEGATIVE) Ur Phencyclidine Scrn (NEGATIVE) Ur Amphetamine Screen (NEGATIVE) U Methamphetamines Scrn (NEGATIVE) Urine MDMA Screen (NEGATIVE) U Benzodiazepines Scrn (NEGATIVE) Urine Cocaine Screen (NEGATIVE) U Marijuana (THC) Screen (NEGATIVE) Ethyl Alcohol mg/dL Medications Discontinued Medications Generic Name Dose Route Start Last Admin Trade Name Freq PRN Reason Stop Dose Admin Dextrose/Water 50 ml 06/16/17 19:42 06/16/17 19:45 Dextrose 50% In Water IVPUSH 50 ml ONETIME PRN Administration Hypoglycemia Dextrose/Water Confirm 06/16/17 19:43 06/16/17 19:57 Dextrose 50% In Water Administered 06/16/17 19:44 Not Given Dose 50 ml .ROUTE .STK-MED ONE Sodium Chloride 1,000 mls @ 999 mls/hr 06/16/17 18:17 06/16/17 18:36 Normal Saline IV 06/16/17 19:17 999 mls/hr .BOLUS ONE Administration Potassium Chloride/Dextrose/Sod Cl 1,000 mls @ 200 mls/hr 06/16/17 19:00 D5 Ns With 20 Meq Kcl IV ASDIRECTED CRUZ Sodium Bicarbonate 150 meq/ 1,150 mls @ 200 mls/hr 06/16/17 19:27 06/16/17 19 :38 Dextrose/Water IV 06/17/17 01:11 200 mls/hr ASDIRECTED ONE Administration Potassium Chloride 20 meq/ 100 mls @ 50 mls/hr 06/16/17 19:27 06/16/17 19:39 Premix IV 06/16/17 21:26 50 mls/hr ONETIME ONE Administration Sodium Bicarbonate 150 meq 06/16/17 18:50 Sodium Bicarbonate 8.4% IVPUSH 06/16/17 18:51 ONETIME ONE Sodium Bicarbonate Confirm 06/16/17 19:08 06/16/17 19:58 Sodium Bicarbonate 8.4% Administered 06/16/17 19:09 Not Given Dose 100 meq .ROUTE .STK-MED ONE Sodium Bicarbonate Confirm 06/16/17 19:20 06/16/17 19:58 Sodium Bicarbonate 8.4% Administered 06/16/17 19:21 Not Given Dose 50 meq .ROUTE .STK-MED ONE Re-Assessment/Re-Exam: TC consult Dr. Lalo Díaz ED provider, accepting of patient in transfer for further management of overdose of multiple substances. patient vitals stable. Somulent, aroused to voice, opens eyes, tracking with eyes, follow command to lift arms, drifts back to sleep with snoring respirations, diaphoretic with temp 96, slight generalized flushing of skin. positive gag reflex is present. Pupils 3mm sluggish. Follow up from Poison Control Center recommending D50 if glucose dropping or near 100. Recheck glucose, 109. D50 administered prior to tx. 1952 tx via [facility]. Departure - Departure Time of Disposition: 20:05 Disposition: DC/Tfer to Acute Hospital 02 Condition: Undetermined Clinical Impression: Drug overdose, multiple drugs Qualifiers: Encounter type: initial encounter Injury intent: undetermined intent Qualified Code(s): T50.904A - Poisoning by unspecified drugs, medicaments and biological substances, undetermined, initial encounter - Discharge Information Referrals: PCP,Unobtain [Primary Care Provider] - Forms: ED Department Discharge - My Orders Last 24 Hours: My Active Orders 06/16/17 18:17 EKG Documentation Completion [RC] URGENT - Assessment/Plan Last 24 Hours: My Active Orders 06/16/17 18:17 EKG Documentation Completion [RC] URGENT <Josiah Mart - Last Filed: 06/17/17 09:18> ED HPI GENERAL MEDICAL PROBLEM - General Source of Information: Reports: Patient, Family () History Limitations: Reports: Altered Mental Status - History of Present Illness INITIAL COMMENTS - FREE TEXT/NARRATIVE: This 47 yo female patient was brought to the ED by her due to "taking a bunch of pills." The patient's reports that the patient took 3/4 of a bottle of 81 mg Aspirin, "some" ibuprofen, and 2 days of her other medications. The patient's medications are regulated by the [employer] [facility] and the patient is only allowed 2 days of medications at a time due to previous suicide attempts. The patient is not able to answer questions due to slurred speech and falling asleep during the interview. The patient was able to follow simple commands. Poison control was contacted and advised that the patient will need a sodium bicarb drip if the salicilate level is greater than 40. 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: Musculoskeletal History: Reports: Back Pain, Chronic Neurological History: Reports: Migraines Psychiatric History: Reports: Anxiety, Bipolar, Depression, PTSD, Other (See Below) Other Psychiatric History: borderline personality disorder Endocrine/Metabolic History: Reports: None Hematologic History: Reports: None Immunologic History: Reports: None Oncologic (Cancer) History: Reports: None Dermatologic History: Reports: None - Infectious Disease History Infectious Disease History: Reports: Chicken Pox - Past Surgical History Head Surgeries/Procedures: Reports: None HEENT Surgical History: Reports: None Cardiovascular Surgical History: Reports: None Respiratory Surgical History: Reports: None GI Surgical History: Reports: Appendectomy, Cholecystectomy Female Surgical History: Reports: Section, Hysterectomy, Tubal Ligation Endocrine Surgical History: Reports: None Neurological Surgical History: Reports: None Musculoskeletal Surgical History: Reports: Other (See Below) Other Musculoskeletal Surgeries/Procedures:: sergio surgery, knee surgery Dermatological Surgical History: Reports: None Social & Family History - Family History Family Medical History: Noncontributory Cardiac: Reports: Hypertension Endocrine/Metabolic: Reports: Diabetes, Type I, Diabetes, type II Other Endocrine/Metabolic Family History: client unable to recall what type of diabetes is in her family Oncologic: Reports: Lung - Tobacco Use Smoking Status *Q: Current Every Day Smoker Years of Tobacco use: 20 Packs/Tins Daily: 1 Used Tobacco, but Quit: No Second Hand Smoke Exposure: No - Caffeine Use Caffeine Use: Reports: Coffee, Soda - Alcohol Use Days Per Week of Alcohol Use: 1 Number of Drinks Per Day: 3 Total Drinks Per Week: 3 - Recreational Drug Use Recreational Drug Use: No ED ROS GENERAL - Review of Systems Review Of Systems: ROS reveals no pertinent complaints other than HPI. ED EXAM, BEHAVIORAL HEALTH - Physical Exam Exam: See Below Exam Limited By: Altered Mental Status General Appearance: Obtunded Eye Exam: Bilateral Eye: EOMI, Normal Inspection, PERRL Ears: Normal External Exam, Normal Canal, Hearing Grossly Normal, Normal TMs Nose: Normal Inspection, Normal Mucosa, No Blood Throat/Mouth: Normal Inspection, Normal Lips, Normal Teeth, Normal Gums, Normal Oropharynx, Normal Voice, No Airway Compromise Head: Atraumatic, Normocephalic Neck: Normal Inspection, Supple, Non-Tender, Full Range of Motion Respiratory/Chest: No Respiratory Distress, Lungs Clear, Normal Breath Sounds, No Accessory Muscle Use, Chest Non-Tender Cardiovascular: Normal Peripheral Pulses, Regular Rate, Rhythm, No Edema, No Gallop, No JVD, No Murmur, No Rub GI/Abdominal: Normal Bowel Sounds, Soft, Non-Tender, No Organomegaly, No Distention, No Abnormal Bruit, No Mass, Other (obese) (Female) Exam: Deferred Rectal (Female) Exam: Deferred Back Exam: Normal Inspection, Full Range of Motion, NT Extremities: Normal Inspection, Normal Range of Motion, Non-Tender, Normal Capillary Refill, No Pedal Edema Neurological: Inattentive, Opens Eyes to Commands, Slow Response to Commands Psychiatric: Flat Affect, Inattentive, Poor Eye Contact, Other (suidical attempt ) Skin Exam: Warm, Intact, Normal color, No rash, Diaphoretic
[2017-06-16] MEDS ORDERED: Sodium Bicarbonate 8.4% 50 MEQ/50 ML Syringe IVPUSH ONE (18:50)
[2017-06-16] MEDS ORDERED: Dextrose 5%-0.9% NaCl with KCl 1,000 ML IV SCH (19:00)
[2017-06-16] MEDS ORDERED: Sodium Bicarbonate 8.4% 50 MEQ/50 ML SDV ONE ×2 (19:08→19:20)
[2017-06-16 19:17] VITALS: BP 104/61
[2017-06-16 19:21] LABS: O2 DELIVERY DEVICE ROOM AIR
[2017-06-16 19:23] LABS: PCO2 ARTERIAL 29 mmHg (35-45)
[2017-06-16 19:24] LABS: ALLEN TEST Y; BASE EXCESS ARTERIAL 0 mmol/L ((-2)-(+3)); O2 SATURATION ARTERIAL 98 % (95-100); PO2 ARTERIAL 100 mmHg (70-100)
[2017-06-16] MEDS ORDERED: Potassium Chloride 20 MEQ in Premix Bag 1 BAG IV ONE (19:27)
[2017-06-16] MEDS ORDERED: Sodium Bicarbonate 150 MEQ in Dextrose 5% in Water 1,000 ML IV ONE ×2 (19:27)
[2017-06-16] MEDS ORDERED: 50% Dextrose in Water 50 ML Syringe IVPUSH PRN (19:42)
[2017-06-16] MEDS ORDERED: 50% Dextrose in Water 50 ML Syringe ONE (19:43)
--- NOTE | 2017-06-23 10:56 | EKG ---
06/16/2017 - IMANI IRWIN - FINDINGS: I reviewed the EKG and agree with the machine's reading. [facility] /[id number]
== END 2017-06-16 20:00 ==
LOC: DL.ED 17:30
DX: T39.312A Poisoning by propionic acid derivatives, intentional self-harm, initial encounter (principal); T39.012A Poisoning by aspirin, intentional self-harm, initial encounter; F17.210 Nicotine dependence, cigarettes, uncomplicated; Z88.0 Allergy status to penicillin; Z91.030 Bee allergy status; Z79.899 Other long term (current) drug therapy
CPT/HCPCS: 36415; 36600; 80053; 80305; 81001; 81025; 82150; 82803; 82962; 83690; 83735; 85025; 93005; 93010; 96361; 96365; 96375; 99285; G0480; J3480; J7030; J7060

== ENCOUNTER 2017-07-22 14:09 | Emergency (ER) | payer MEDICARE, MEDICAID ==
[2017-07-22 14:36] VITALS: BP 118/77
[2017-07-22] MEDS ORDERED: Ketorolac 30 MG/ML SDV IVPUSH ONE (14:52)
[2017-07-22] MEDS ORDERED: Metoclopramide 10 MG/2 ML SDV IVPUSH ONE (14:52)
[2017-07-22] MEDS ORDERED: diphenhydrAMINE 50 MG/ML SDV IVPUSH ONE (14:52)
[2017-07-22] MEDS ORDERED: Sodium Chloride 0.9% 1,000 ML IV ONE (14:52)
--- NOTE | 2017-07-22 14:55 | EDM.PDOC ---
ED HPI GENERAL MEDICAL PROBLEM - General Chief Complaint: Headache Stated Complaint: MIGRAINE HEADACHEX2 DAYS, [id number] Time Seen by Provider: 07/22/17 14:42 Source of Information: Reports: Patient History Limitations: Reports: No Limitations - History of Present Illness INITIAL COMMENTS - FREE TEXT/NARRATIVE: Patient comes emergency department today with complaints of a migraine. This been going on for the past 2 days. She has squeezing pressure sensation throughout the tentorium. She also has symptoms tightness and tension in the posterior aspect of her head and her neck. She has vomited multiple times. She does complain of a little bit of blurry vision. She denies any numbness or tingling to her upper or lower extremities. She denies any change in the functionality of her upper or lower extremity. This feels identical to her typical migraines with the symptomology described previously. This is not her worst migraine she has ever had. Recent falls or trauma to her head. She is currently under quite a bit of stress as she has restraining order against an ex -significant other who was just recently released from halfway and she is quite stressed out about his release. She does feel safe here in the emergency department and she is currently staying in a safe house in [facility]. She denies any fever or chills. Denies any chest pain shortness breath difficulty breathing. Denies any abdominal pain. She denies any hematuria dysuria or urinary frequency. She has vomited approximately 4-5 times. Her last migraine was approximately 1 month ago. Her migraines have improved quite significantly over the past few months. Approximately 1 years ago she would have a migraine almost every other day although this is not the case anymore. Headache Pain Score (Numeric/FACES): 8 - Related Data Allergies Allergy/AdvReac Type Severity Reaction Status Date / Time bee venom protein (honey bee) Allergy Airway Verified 06/11/17 09:11 Tightness lurasidone [From Latuda] Allergy Other Verified 06/11/17 09:11 Penicillins Allergy Hives Verified 06/11/17 09:11 Home Meds: Home Meds ALPRAZolam [Alprazolam] 0.25 mg PO QID 03/24/17 [History] Melatonin 10 mg PO BEDTIME 03/24/17 [History] Omeprazole 40 mg PO BID 03/24/17 [History] Potassium Chloride 30 meq PO DAILY 03/24/17 [History] Pramipexole Di-HCl [Mirapex] 2 tab PO BEDTIME 03/24/17 [History] Prazosin HCl [Prazosin] 3 mg PO BEDTIME 03/24/17 [History] Venlafaxine HCl [Venlafaxine ER] 75 mg PO BID 03/24/17 [History] atorvaSTATin [Lipitor] 10 mg PO BEDTIME 03/24/17 [History] risperiDONE 1 mg PO BEDTIME 03/24/17 [History] Fesoterodine Fumarate [Toviaz] 8 mg PO DAILY 04/03/17 [History] valACYclovir HCl [Valtrex] 500 mg PO DAILY 04/03/17 [History] Propranolol [Inderal LA] 80 mg PO DAILY 05/08/17 [History] Past Medical History HEENT History: Reports: None Cardiovascular History: Reports: Blood Clots/VTE/DVT Respiratory History: Reports: PE, Sleep Apnea, Other (See Below) Other Respiratory History: PE 2016 Gastrointestinal History: Reports: GERD, Irritable Bowel Syndrome, Other (See Below) Other Gastrointestinal History: 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 Genitourinary History: Reports: Pyelonephritis 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: Musculoskeletal History: Reports: Back Pain, Chronic Neurological History: Reports: Migraines Psychiatric History: Reports: Anxiety, Bipolar, Depression, PTSD, Other (See Below) Other Psychiatric History: borderline personality disorder Endocrine/Metabolic History: Reports: None Hematologic History: Reports: None Immunologic History: Reports: None Oncologic (Cancer) History: Reports: None Dermatologic History: Reports: None - Infectious Disease History Infectious Disease History: Reports: Chicken Pox - Past Surgical History Head Surgeries/Procedures: Reports: None HEENT Surgical History: Reports: None Cardiovascular Surgical History: Reports: None Respiratory Surgical History: Reports: None GI Surgical History: Reports: Appendectomy, Cholecystectomy Female Surgical History: Reports: Section, Hysterectomy, Tubal Ligation Endocrine Surgical History: Reports: None Neurological Surgical History: Reports: None Musculoskeletal Surgical History: Reports: Other (See Below) Other Musculoskeletal Surgeries/Procedures:: sergio surgery, knee surgery Dermatological Surgical History: Reports: None Social & Family History - Family History Family Medical History: Noncontributory Cardiac: Reports: Hypertension Endocrine/Metabolic: Reports: Diabetes, Type I, Diabetes, type II Other Endocrine/Metabolic Family History: client unable to recall what type of diabetes is in her family Oncologic: Reports: Lung - Tobacco Use Smoking Status *Q: Current Some Day Smoker Years of Tobacco use: 20 Packs/Tins Daily: 1 Used Tobacco, but Quit: No Second Hand Smoke Exposure: No - Caffeine Use Caffeine Use: Reports: Coffee, Soda - Alcohol Use Days Per Week of Alcohol Use: 1 Number of Drinks Per Day: 3 Total Drinks Per Week: 3 - Recreational Drug Use Recreational Drug Use: No ED ROS GENERAL - Review of Systems Review Of Systems: ROS reveals no pertinent complaints other than HPI. - Physical Exam Exam: See Below Exam Limited By: No Limitations General Appearance: Alert, WD/WN, No Apparent Distress Eye Exam: Bilateral Eye: EOMI, Normal Inspection, PERRL (3) Ears: Normal External Exam, Normal Canal, Hearing Grossly Normal, Normal TMs Nose: Normal Inspection, Normal Mucosa, No Blood Throat/Mouth: Normal Inspection, Normal Lips, Normal Teeth, Normal Oropharynx Head Exam: Atraumatic, Normocephalic, Other (Nontender. ) Neck: Normal Inspection, Supple, Non-Tender. No: Carotid Bruit, Lymphadenopathy (L), Lymphadenopathy (R), Tender Lateral, Tender Midline Respiratory/Chest: No Respiratory Distress, Lungs Clear, Normal Breath Sounds, No Accessory Muscle Use Cardiovascular: Normal Peripheral Pulses, Regular Rate, Rhythm GI/Abdominal: Normal Bowel Sounds, Soft (Female) Exam: Deferred Rectal (Female) Exam: Deferred Neuro Exam (Abbreviated): Alert, Oriented, CN II-XII Intact, Normal Cognition, Normal Gait, Normal Reflexes, No Motor/Sensory Deficits DTR: 2+: Bicep (R), Bicep (L), Patella (R), Patella (L), Achilles (R), Achilles (L) Back Exam: Normal Inspection, Full Range of Motion. No: CVA Tenderness (L), CVA Tenderness (R) Extremities: Normal Inspection, Normal Range of Motion, Non-Tender, Normal Capillary Refill Psychiatric: Normal Affect, Normal Mood Skin Exam: Warm, Dry, Intact, Normal Color, No Rash Course - Vital Signs Last Recorded V/S: Last Vital Signs Temp 37.0 C 07/22/17 14:35 Pulse 94 07/22/17 14:35 Resp 18 07/22/17 14:35 BP 118/77 07/22/17 14:35 Pulse Ox 100 07/22/17 14:35 - Orders/Labs/Meds Labs: Laboratory Tests 07/22/17 Range/Units 14:41 Urine Color Yellow (YELLOW) Urine Appearance Clear (CLEAR) Urine pH 6.5 (5.0-9.0) Ur Specific [place] <= 1.005 (1.005-1.030) Urine Protein Negative (NEGATIVE) Urine Glucose (UA) Negative (NEGATIVE) Urine Ketones Negative (NEGATIVE) Urine Occult Blood Negative (NEGATIVE) Urine Nitrite Negative (NEGATIVE) Urine Bilirubin Negative (NEGATIVE) Urine Urobilinogen 0.2 (0.2-1.0) mg/dL Ur Leukocyte Esterase Negative (NEGATIVE) Urine RBC 0-5 /HPF Urine WBC 0-5 (0-5/HPF) /HPF Ur Epithelial Cells Few /HPF Urine Bacteria Few (0-FEW/HPF) /HPF Meds: Medications Discontinued Medications Generic Name Dose Route Start Last Admin Trade Name Freq PRN Reason Stop Dose Admin Diphenhydramine HCl 25 mg 07/22/17 14:52 07/22/17 15:08 Benadryl IVPUSH 07/22/17 14:53 25 mg ONETIME ONE Administration Sodium Chloride 1,000 mls @ 999 mls/hr 07/22/17 14:52 07/22/17 15:08 Normal Saline IV 07/22/17 15:52 999 mls/hr .BOLUS ONE Administration Ketorolac Tromethamine 30 mg 07/22/17 14:52 07/22/17 15:07 Toradol IVPUSH 07/22/17 14:53 30 mg ONETIME ONE Administration Metoclopramide HCl 10 mg 07/22/17 14:52 07/22/17 15:07 Reglan IVPUSH 07/22/17 14:53 10 mg ONETIME ONE Administration - Re-Assessments/Exams Free Text/Narrative Re-Assessment/Exam: 07/22/17 14:54 IV normal saline 1 L wide open. Diphenhydramine 25 mg IV push. Ketorolac 30 mg IV push. Reglan 10 mg IV slow push. 07/22/17 15:52 After the above therapy her migraine was about 75-80% improved she feels much better on like to go home. I talked about the importance of rest as well as trying to decrease stress although that is difficult in this time with her social situation. Be cautious with the regular usage of NSAIDs or Tylenol because it can cause rebound migraines or headaches. Departure - Departure Time of Disposition: 15:53 Disposition: Home, Self-Care 01 Clinical Impression: Migraine - Discharge Information Instructions: Pain Medicine Instructions, [id number], Recurrent Migraine Headache, [id number] Forms: ED Department Discharge Additional Instructions: Go home and rest as much as possible for the next few days. Decrease stimulation such as noise and bright lights such as phones iPads were TVs. No video games. Increase fluids over the next couple of days. Tylenol and/or ibuprofen as needed for headache although uses sparingly as it can cause some recurrent migraines. You can also try some Benadryl [id number] as well for the migraine and nausea. Emergency department if new or worsening symptoms. Recheck with primary care provider in the next 7 days if not improving sooner if worse. - Assessment/Plan Assessment:: Migraine without aura, most likely stress induced. Social problems stress with current significant other. Plan: Go home and rest as much as possible for the next few days. Decrease stimulation such as noise and bright lights such as phones iPads were TVs. No video games. Increase fluids over the next couple of days. Tylenol and/or ibuprofen as needed for headache although uses sparingly as it can cause some recurrent migraines. You can also try some Benadryl [id number] as well for the migraine and nausea. Emergency department if new or worsening symptoms. Recheck with primary care provider in the next 7 days if not improving sooner if worse.
== END 2017-07-22 16:04 | disposition home or self-care (01) ==
LOC: DL.ED 14:09
DX: G43.009 Migraine without aura, not intractable, without status migrainosus (principal); F43.9 Reaction to severe stress, unspecified; F17.210 Nicotine dependence, cigarettes, uncomplicated; K21.9 Gastro-esophageal reflux disease without esophagitis; F31.9 Bipolar disorder, unspecified; Z79.899 Other long term (current) drug therapy; Z88.0 Allergy status to penicillin; Z88.8 Allergy status to other drugs, medicaments and biological substances; Z91.030 Bee allergy status
CPT/HCPCS: 81001; 96365; 96375; 99283; J1200; J1885; J2765; J7030; 99284

== ENCOUNTER 2017-07-28 17:42 | Emergency (ER) | payer MEDICARE, MEDICAID ==
[2017-07-28 17:57] VITALS: BP 111/85
--- NOTE | 2017-07-28 19:10 | EDM.PDOC ---
ED HPI GENERAL MEDICAL PROBLEM - General Chief Complaint: Abdominal Pain Stated Complaint: UPPER ABD PAINS, [id number] Time Seen by Provider: 07/28/17 19:15 Source of Information: Reports: Patient History Limitations: Reports: No Limitations - History of Present Illness INITIAL COMMENTS - FREE TEXT/NARRATIVE: C/o severe abdominal pain RUQ since yesterday with some nausea, no vomiting. No fever or chills, No urinary sx. patient states she is worried that she had done some damage to liver and that was causing pain. Hx overdose in [address] and had to be [facility] to higher level of care and ended up on dialysis for 3-4 days. Right Upper Abdomen Pain Score (Numeric/FACES): 8 - Related Data Allergies Allergy/AdvReac Type Severity Reaction Status Date / Time bee venom protein (honey bee) Allergy Airway Verified 07/28/17 17:57 Tightness lurasidone [From Latuda] Allergy Other Verified 07/28/17 17:57 Penicillins Allergy Hives Verified 07/28/17 17:57 Home Meds: Home Meds ALPRAZolam [Alprazolam] 0.25 mg PO QID 03/24/17 [History] Melatonin 10 mg PO BEDTIME 03/24/17 [History] Omeprazole 40 mg PO BID 03/24/17 [History] Potassium Chloride 30 meq PO DAILY 03/24/17 [History] Pramipexole Di-HCl [Mirapex] 2 tab PO BEDTIME 03/24/17 [History] Prazosin HCl [Prazosin] 3 mg PO BEDTIME 03/24/17 [History] Venlafaxine HCl [Venlafaxine ER] 75 mg PO BID 03/24/17 [History] atorvaSTATin [Lipitor] 10 mg PO BEDTIME 03/24/17 [History] risperiDONE 1 mg PO BEDTIME 03/24/17 [History] Fesoterodine Fumarate [Toviaz] 8 mg PO DAILY 04/03/17 [History] valACYclovir HCl [Valtrex] 500 mg PO DAILY 04/03/17 [History] Propranolol [Inderal LA] 80 mg PO DAILY 05/08/17 [History] Past Medical History HEENT History: Reports: None Cardiovascular History: Reports: Blood Clots/VTE/DVT Respiratory History: Reports: PE, Sleep Apnea, Other (See Below) Other Respiratory History: PE 2016 Gastrointestinal History: Reports: GERD, Irritable Bowel Syndrome, Other (See Below) Other Gastrointestinal History: 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 Genitourinary History: Reports: Pyelonephritis 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: Musculoskeletal History: Reports: Back Pain, Chronic Neurological History: Reports: Migraines Psychiatric History: Reports: Anxiety, Bipolar, Depression, PTSD, Other (See Below) Other Psychiatric History: borderline personality disorder Endocrine/Metabolic History: Reports: None Hematologic History: Reports: None Immunologic History: Reports: None Oncologic (Cancer) History: Reports: None Dermatologic History: Reports: None - Infectious Disease History Infectious Disease History: Reports: Chicken Pox - Past Surgical History Head Surgeries/Procedures: Reports: None HEENT Surgical History: Reports: None Cardiovascular Surgical History: Reports: None Respiratory Surgical History: Reports: None GI Surgical History: Reports: Appendectomy, Cholecystectomy Female Surgical History: Reports: Section, Hysterectomy, Tubal Ligation Endocrine Surgical History: Reports: None Neurological Surgical History: Reports: None Musculoskeletal Surgical History: Reports: Other (See Below) Other Musculoskeletal Surgeries/Procedures:: sergio surgery, knee surgery Dermatological Surgical History: Reports: None Social & Family History - Family History Family Medical History: Noncontributory Cardiac: Reports: Hypertension Endocrine/Metabolic: Reports: Diabetes, Type I, Diabetes, type II Other Endocrine/Metabolic Family History: client unable to recall what type of diabetes is in her family Oncologic: Reports: Lung - Tobacco Use Smoking Status *Q: Current Every Day Smoker Years of Tobacco use: 19 Packs/Tins Daily: 0.7 Used Tobacco, but Quit: No Second Hand Smoke Exposure: Yes - Caffeine Use Caffeine Use: Reports: Coffee, Soda - Alcohol Use Days Per Week of Alcohol Use: 1 Number of Drinks Per Day: 3 Total Drinks Per Week: 3 - Recreational Drug Use Recreational Drug Use: No ED ROS GENERAL - Review of Systems Review Of Systems: See Below Constitutional: Reports: No Symptoms HEENT: Reports: No Symptoms Respiratory: Reports: No Symptoms Cardiovascular: Reports: No Symptoms GI/Abdominal: Reports: Abdominal Pain, Nausea. Denies: Diarrhea, Decreased Appetite, Vomiting : Reports: No Symptoms Musculoskeletal: Reports: No Symptoms Skin: Reports: No Symptoms Neurological: Reports: No Symptoms Psychiatric: Reports: Anxiety ED EXAM, GI/ABD - Physical Exam Exam: See Below Exam Limited By: No Limitations General Appearance: Alert, Anxious, Mild Distress Eyes: Bilateral: EOMI Ears: Normal External Exam Nose: Normal Inspection Throat/Mouth: Normal Inspection Head: Atraumatic, Normocephalic Neck: Normal Inspection Respiratory/Chest: No Respiratory Distress, Lungs Clear Cardiovascular: Normal Peripheral Pulses GI/Abdominal Exam: Normal Bowel Sounds, Soft, Tender (right upper and lower), Other (old yellow brown quarter ize bruises x2 mid abdomen ). No: Distended, Guarding, Rebound Extremities: Normal Inspection Neurological: Alert, Oriented Psychiatric: Anxious, Tearful Skin Exam: Warm, Dry, Intact, Ecchymosis Course - Vital Signs Last Recorded V/S: Last Vital Signs Temp 98.6 F 07/28/17 17:52 Pulse 104 H 07/28/17 17:52 Resp 18 07/28/17 17:52 BP 111/85 07/28/17 17:52 Pulse Ox 97 07/28/17 17:52 - Orders/Labs/Meds Labs: Laboratory Tests 07/28/17 07/28/17 07/28/17 Range/Units 18:06 18:06 18:57 WBC 5.2 (5.0-10.0) 10^3/uL RBC 4.46 (4.2-5.4) 10^6/uL Hgb 13.5 D (12.0-16.0) g/dL Hct 39.5 (37.0-47.0) % MCV 88.6 (80-100) fL MCH 30.3 (27.0-34.0) pg MCHC 34.2 (33.0-35.0) g/dL Plt Count 203 D (150-450) 10^3/uL Neut % (Auto) 54.7 (42.2-75.2) % Lymph % (Auto) 30.1 (20.5-50.1) % [place] % (Auto) 10.9 H (2-8) % Eos % (Auto) 3.3 H (1.0-3.0) % Baso % (Auto) 1.0 (0.0-1.0) % Sodium (135-145) mmol/L Potassium (3.6-5.0) mmol/L Chloride (101-111) mmol/L Carbon Dioxide (21.0-31.0) mmol/L Anion Gap BUN (7-18) mg/dL Creatinine (0.6-1.3) mg/dL Est Cr Clr Drug Dosing mL/min Estimated GFR (MDRD) BUN/Creatinine Ratio Glucose (74-105) mg/dL Calcium (8.4-10.2) mg/dl Total Bilirubin (0.2-1.0) mg/dL AST (10-42) IU/L ALT (10-60) IU/L Alkaline Phosphatase (42-121) IU/L Total Protein (6.7-8.2) g/dl Albumin (3.2-5.5) g/dl Globulin Albumin/Globulin Ratio Urine Color Light yellow (YELLOW) Urine Appearance Clear (CLEAR) Urine pH 6.0 (5.0-9.0) Ur Specific [place] <= 1.005 (1.005-1.030) Urine Protein Negative (NEGATIVE) Urine Glucose (UA) Negative (NEGATIVE) Urine Ketones Negative (NEGATIVE) Urine Occult Blood Negative (NEGATIVE) Urine Nitrite Negative (NEGATIVE) Urine Bilirubin Negative (NEGATIVE) Urine Urobilinogen 0.2 (0.2-1.0) mg/dL Ur Leukocyte Esterase Negative (NEGATIVE) Urine RBC 0-5 /HPF Urine WBC 0-5 (0-5/HPF) /HPF Ur Epithelial Cells Rare /HPF Urine Bacteria Rare (0-FEW/HPF) /HPF Urine Opiates Screen Negative (NEGATIVE) Ur Oxycodone Screen Negative (NEGATIVE) Urine Methadone Screen Negative (NEGATIVE) Ur Barbiturates Screen Negative (NEGATIVE) U Tricyclic Antidepress Negative (NEGATIVE) Ur Phencyclidine Scrn Negative (NEGATIVE) Ur Amphetamine Screen Negative (NEGATIVE) U Methamphetamines Scrn Negative (NEGATIVE) Urine MDMA Screen Negative (NEGATIVE) U Benzodiazepines Scrn Positive H (NEGATIVE) Urine Cocaine Screen Negative (NEGATIVE) U Marijuana (THC) Screen Negative (NEGATIVE) 07/28/17 Range/Units 18:57 WBC (5.0-10.0) 10^3/uL RBC (4.2-5.4) 10^6/uL Hgb (12.0-16.0) g/dL Hct (37.0-47.0) % MCV (80-100) fL MCH (27.0-34.0) pg MCHC (33.0-35.0) g/dL Plt Count (150-450) 10^3/uL Neut % (Auto) (42.2-75.2) % Lymph % (Auto) (20.5-50.1) % [place] % (Auto) (2-8) % Eos % (Auto) (1.0-3.0) % Baso % (Auto) (0.0-1.0) % Sodium 134 L (135-145) mmol/L Potassium 3.8 (3.6-5.0) mmol/L Chloride 100 L (101-111) mmol/L Carbon Dioxide 28.0 (21.0-31.0) mmol/L Anion Gap 9.8 BUN 5 L (7-18) mg/dL Creatinine 0.9 (0.6-1.3) mg/dL Est Cr Clr Drug Dosing 61.12 mL/min Estimated GFR (MDRD) > 60 BUN/Creatinine Ratio 5.55 Glucose 94 (74-105) mg/dL Calcium 9.0 (8.4-10.2) mg/dl Total Bilirubin 0.6 (0.2-1.0) mg/dL AST 27 (10-42) IU/L ALT 33 (10-60) IU/L Alkaline Phosphatase 79 (42-121) IU/L Total Protein 7.0 (6.7-8.2) g/dl Albumin 3.9 (3.2-5.5) g/dl Globulin 3.1 Albumin/Globulin Ratio 1.26 Urine Color (YELLOW) Urine Appearance (CLEAR) Urine pH (5.0-9.0) Ur Specific [place] (1.005-1.030) Urine Protein (NEGATIVE) Urine Glucose (UA) (NEGATIVE) Urine Ketones (NEGATIVE) Urine Occult Blood (NEGATIVE) Urine Nitrite (NEGATIVE) Urine Bilirubin (NEGATIVE) Urine Urobilinogen (0.2-1.0) mg/dL Ur Leukocyte Esterase (NEGATIVE) Urine RBC /HPF Urine WBC (0-5/HPF) /HPF Ur Epithelial Cells /HPF Urine Bacteria (0-FEW/HPF) /HPF Urine Opiates Screen (NEGATIVE) Ur Oxycodone Screen (NEGATIVE) Urine Methadone Screen (NEGATIVE) Ur Barbiturates Screen (NEGATIVE) U Tricyclic Antidepress (NEGATIVE) Ur Phencyclidine Scrn (NEGATIVE) Ur Amphetamine Screen (NEGATIVE) U Methamphetamines Scrn (NEGATIVE) Urine MDMA Screen (NEGATIVE) U Benzodiazepines Scrn (NEGATIVE) Urine Cocaine Screen (NEGATIVE) U Marijuana (THC) Screen (NEGATIVE) Meds: Medications Discontinued Medications Generic Name Dose Route Start Last Admin Trade Name Hugh PRN Reason Stop Dose Admin Hydromorphone HCl 1 mg 07/28/17 19:49 07/28/17 19:53 Dilaudid IVPUSH 07/28/17 19:50 1 mg ONETIME ONE Administration Sodium Chloride 1,000 mls @ 500 mls/hr 07/28/17 19:49 07/28/17 19:56 Normal Saline IV 07/28/17 21:48 500 mls/hr .BOLUS ONE Administration Ketorolac Tromethamine 30 mg 07/28/17 21:22 07/28/17 21:27 Toradol IVPUSH 07/28/17 21:23 30 mg ONETIME ONE Administration Metoclopramide HCl 10 mg 07/28/17 19:33 07/28/17 19:40 Reglan IVPUSH 07/28/17 19:34 10 mg ONETIME ONE Administration - Radiology Interpretation Free Text/Narrative:: CT abdomen, bilateral micro renal calculi. Normal liver. Departure - Departure Time of Disposition: 21:38 Disposition: Home, Self-Care 01 Condition: Fair Clinical Impression: Right sided abdominal pain, Bilateral kidney stones - Discharge Information Instructions: Kidney Stones, [id number], Abdominal Pain, Adult, [id number] Referrals: Anastasia Reyes MD [Primary Care Provider] - Forms: ED Department Discharge Additional Instructions: increase fluid intake tylenol or ibuprofen for discomfort follow up as needed
[2017-07-28 19:23] LABS: ANION GAP 9.8; CHLORIDE,CL 100 mmol/L (101-111); SODIUM,NA 134 mmol/L (135-145)
[2017-07-28] MEDS ORDERED: Metoclopramide 10 MG/2 ML SDV IVPUSH ONE (19:33)
[2017-07-28] MEDS ORDERED: HYDROmorphone 1 MG/ML Syringe IVPUSH ONE (19:49)
[2017-07-28] MEDS ORDERED: Sodium Chloride 0.9% 1,000 ML IV ONE (19:49)
[2017-07-28] MEDS ORDERED: Ketorolac 30 MG/ML SDV IVPUSH ONE (21:22)
== END 2017-07-28 21:55 | disposition home or self-care (01) ==
LOC: DL.ED 17:42
DX: N20.0 Calculus of kidney (principal); F17.210 Nicotine dependence, cigarettes, uncomplicated; Z91.030 Bee allergy status; Z88.0 Allergy status to penicillin; Z79.899 Other long term (current) drug therapy
CPT/HCPCS: 36415; 74176; 80053; 80305; 81001; 85025; 96365; 96375; 99284; J1170; J1885; J2765; J7030

== ENCOUNTER 2017-08-30 15:48 | Emergency (ER) | payer MEDICARE, MEDICAID ==
--- NOTE | 2017-08-30 16:09 | EDM.PDOC ---
ED HPI GENERAL MEDICAL PROBLEM - General Chief Complaint: Flank Pain Stated Complaint: JASPREET MAC, [id number] Time Seen by Provider: 08/30/17 16:08 Source of Information: Reports: Patient, RN, RN Notes Reviewed History Limitations: Reports: No Limitations - History of Present Illness INITIAL COMMENTS - FREE TEXT/NARRATIVE: Pt presents to the ER with c/o abdominal pain in the right upper quadrant and right and left flanks. She rates the pain a 9/10 at this time. She states she has had kidney stones in the past, has had her gallbladder removed. Patient admits to fever and chills, diarrhea/constipation with a history of IBS, and nausea without vomiting. Onset: Gradual - Related Data Allergies Allergy/AdvReac Type Severity Reaction Status Date / Time bee venom protein (honey bee) Allergy Airway Verified 08/30/17 15:56 Tightness lurasidone [From Latuda] Allergy Other Verified 08/30/17 15:56 Penicillins Allergy Hives Verified 08/30/17 15:56 Home Meds: Home Meds ALPRAZolam [Alprazolam] 0.25 mg PO QID 03/24/17 [History] Melatonin 10 mg PO BEDTIME 03/24/17 [History] Omeprazole 40 mg PO BID 03/24/17 [History] Potassium Chloride 30 meq PO DAILY 03/24/17 [History] Pramipexole Di-HCl [Mirapex] 2 tab PO BEDTIME 03/24/17 [History] Prazosin HCl [Prazosin] 3 mg PO BEDTIME 03/24/17 [History] Venlafaxine HCl [Venlafaxine ER] 75 mg PO BID 03/24/17 [History] atorvaSTATin [Lipitor] 10 mg PO BEDTIME 03/24/17 [History] risperiDONE 1 mg PO BEDTIME 03/24/17 [History] Fesoterodine Fumarate [Toviaz] 8 mg PO DAILY 04/03/17 [History] valACYclovir HCl [Valtrex] 500 mg PO DAILY 04/03/17 [History] Propranolol [Inderal LA] 80 mg PO DAILY 05/08/17 [History] Cholecalciferol (Vitamin D3) [Vitamin D3] 08/30/17 [History] Cholecalciferol (Vitamin D3) [Vitamin D3] 500 units PO DAILY 08/30/17 [History] Past Medical History HEENT History: Reports: None Cardiovascular History: Reports: Blood Clots/VTE/DVT, High Cholesterol, Hypertension Respiratory History: Reports: PE, Sleep Apnea, Other (See Below) Other Respiratory History: PE 2016 Gastrointestinal History: Reports: GERD, Irritable Bowel Syndrome, Other (See Below) Other Gastrointestinal History: 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 Genitourinary History: Reports: Pyelonephritis 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: Musculoskeletal History: Reports: Back Pain, Chronic Neurological History: Reports: Migraines Psychiatric History: Reports: Anxiety, Bipolar, Depression, PTSD, Other (See Below) Other Psychiatric History: borderline personality disorder Endocrine/Metabolic History: Reports: None Hematologic History: Reports: None Immunologic History: Reports: None Oncologic (Cancer) History: Reports: None Dermatologic History: Reports: None - Infectious Disease History Infectious Disease History: Reports: Chicken Pox - Past Surgical History Head Surgeries/Procedures: Reports: None HEENT Surgical History: Reports: None Cardiovascular Surgical History: Reports: None Respiratory Surgical History: Reports: None GI Surgical History: Reports: Appendectomy, Cholecystectomy Female Surgical History: Reports: Section, Hysterectomy, Tubal Ligation Endocrine Surgical History: Reports: None Neurological Surgical History: Reports: None Musculoskeletal Surgical History: Reports: Other (See Below) Other Musculoskeletal Surgeries/Procedures:: sergio surgery, knee surgery Dermatological Surgical History: Reports: None Social & Family History - Family History Family Medical History: Noncontributory Cardiac: Reports: Hypertension Endocrine/Metabolic: Reports: Diabetes, Type I, Diabetes, type II Other Endocrine/Metabolic Family History: client unable to recall what type of diabetes is in her family Oncologic: Reports: Lung - Tobacco Use Smoking Status *Q: Current Every Day Smoker Years of Tobacco use: 20 Packs/Tins Daily: 0.5 Used Tobacco, but Quit: No Second Hand Smoke Exposure: Yes - Caffeine Use Caffeine Use: Reports: Coffee, Soda - Alcohol Use Days Per Week of Alcohol Use: 1 Number of Drinks Per Day: 3 Total Drinks Per Week: 3 - Recreational Drug Use Recreational Drug Use: No ED ROS GENERAL - Review of Systems Review Of Systems: ROS reveals no pertinent complaints other than HPI. ED EXAM, RENAL/ - Physical Exam Exam: See Below Exam Limited By: No Limitations General Appearance: Alert, WD/WN, Moderate Distress Eye Exam: Bilateral Eye: EOMI, Normal Inspection, PERRL Ears: Normal External Exam, Hearing Grossly Normal Nose: Normal Inspection Throat/Mouth: Normal Inspection, Normal Voice, No Airway Compromise Head: Atraumatic, Normocephalic Neck: Normal Inspection, Supple, Non-Tender, Full Range of Motion Respiratory/Chest: No Respiratory Distress, Lungs Clear, Normal Breath Sounds, No Accessory Muscle Use, Chest Non-Tender Cardiovascular: Normal Peripheral Pulses, Regular Rate, Rhythm, No Edema, No Gallop, No JVD, No Murmur, No Rub GI/Abdominal: Normal Bowel Sounds, Soft, No Organomegaly, No Distention, Tender (Female) Exam: Deferred Rectal (Female) Exam: Deferred Back Exam: Normal Inspection, Full Range of Motion Extremities: Normal Inspection, Normal Range of Motion, Non-Tender, No Pedal Edema, Normal Capillary Refill Neurological: Alert, Oriented, CN II-XII Intact, Normal Cognition, Normal Gait, Normal Reflexes, No Motor/Sensory Deficits Psychiatric: Normal Affect, Normal Mood Skin Exam: Warm, Dry, Intact, Normal Color, No Rash Lymphatic: No Adenopathy Course - Vital Signs Last Recorded V/S: Last Vital Signs Temp 97.8 F 08/30/17 16:09 Pulse 82 08/30/17 16:09 Resp 16 08/30/17 16:09 BP 133/82 08/30/17 16:09 Pulse Ox 100 08/30/17 16:09 - Orders/Labs/Meds Orders: Active Orders 24 hr Category Date Time Status Peripheral IV Care [RC] . DIRECTED Care 08/30/17 16:16 Active Abdomen Pelvis w Cont [CT] Urgent Exams 08/30/17 17:17 Taken Sodium Chloride 0.9% [Saline Flush] Med 08/30/17 16:16 Active 10 ml FLUSH ASDIRECTED PRN Peripheral IV Insertion Adult [OM.PC] Stat Oth 08/30/17 16:16 Ordered Medication Orders Sodium Chloride (Saline Flush) 10 ml FLUSH ASDIRECTED PRN PRN Reason: Keep Vein Open Last Admin: 08/30/17 16:27 Dose: 10 ml Labs: Laboratory Tests 08/30/17 08/30/17 08/30/17 Range/Units 15:48 15:48 16:24 WBC 6.7 (5.0-10.0) 10^3/uL RBC 4.37 (4.2-5.4) 10^6/uL Hgb 12.7 (12.0-16.0) g/dL Hct 37.7 (37.0-47.0) % MCV 86.3 (80-100) fL MCH 29.1 (27.0-34.0) pg MCHC 33.7 (33.0-35.0) g/dL Plt Count 248 (150-450) 10^3/uL Neut % (Auto) 46.5 (42.2-75.2) % Lymph % (Auto) 41.8 (20.5-50.1) % [place] % (Auto) 8.1 H (2-8) % Eos % (Auto) 3.0 (1.0-3.0) % Baso % (Auto) 0.6 (0.0-1.0) % Sodium (135-145) mmol/L Potassium (3.6-5.0) mmol/L Chloride (101-111) mmol/L Carbon Dioxide (21.0-31.0) mmol/L Anion Gap BUN (7-18) mg/dL Creatinine (0.6-1.3) mg/dL Est Cr Clr Drug Dosing mL/min Estimated GFR (MDRD) BUN/Creatinine Ratio Glucose (74-105) mg/dL Calcium (8.4-10.2) mg/dl Total Bilirubin (0.2-1.0) mg/dL AST (10-42) IU/L ALT (10-60) IU/L Alkaline Phosphatase (42-121) IU/L Total Protein (6.7-8.2) g/dl Albumin (3.2-5.5) g/dl Globulin Albumin/Globulin Ratio Amylase (28-100) U/L Lipase (22-51) U/L Urine Color Straw (YELLOW) Urine Appearance Clear (CLEAR) Urine pH 5.5 (5.0-9.0) Ur Specific [place] <= 1.005 (1.005-1.030) Urine Protein Negative (NEGATIVE) Urine Glucose (UA) Negative (NEGATIVE) Urine Ketones Negative (NEGATIVE) Urine Occult Blood Negative (NEGATIVE) Urine Nitrite Negative (NEGATIVE) Urine Bilirubin Negative (NEGATIVE) Urine Urobilinogen 0.2 (0.2-1.0) mg/dL Ur Leukocyte Esterase Negative (NEGATIVE) Urine RBC 0-5 /HPF Urine WBC 0-5 (0-5/HPF) /HPF Ur Epithelial Cells Few /HPF Urine Bacteria Many H (0-FEW/HPF) /HPF Urine Opiates Screen Negative (NEGATIVE) Ur Oxycodone Screen Negative (NEGATIVE) Urine Methadone Screen Negative (NEGATIVE) Ur Barbiturates Screen Negative (NEGATIVE) U Tricyclic Antidepress Negative (NEGATIVE) Ur Phencyclidine Scrn Negative (NEGATIVE) Ur Amphetamine Screen Negative (NEGATIVE) U Methamphetamines Scrn Negative (NEGATIVE) Urine MDMA Screen Negative (NEGATIVE) U Benzodiazepines Scrn Positive H (NEGATIVE) Urine Cocaine Screen Negative (NEGATIVE) U Marijuana (THC) Screen Negative (NEGATIVE) Ethyl Alcohol mg/dL 08/30/17 08/30/17 Range/Units 16:24 16:24 WBC (5.0-10.0) 10^3/uL RBC (4.2-5.4) 10^6/uL Hgb (12.0-16.0) g/dL Hct (37.0-47.0) % MCV (80-100) fL MCH (27.0-34.0) pg MCHC (33.0-35.0) g/dL Plt Count (150-450) 10^3/uL Neut % (Auto) (42.2-75.2) % Lymph % (Auto) (20.5-50.1) % [place] % (Auto) (2-8) % Eos % (Auto) (1.0-3.0) % Baso % (Auto) (0.0-1.0) % Sodium 132 L (135-145) mmol/L Potassium 3.9 (3.6-5.0) mmol/L Chloride 102 (101-111) mmol/L Carbon Dioxide 25.0 (21.0-31.0) mmol/L Anion Gap 8.9 BUN 8 (7-18) mg/dL Creatinine 0.9 (0.6-1.3) mg/dL Est Cr Clr Drug Dosing 62.52 mL/min Estimated GFR (MDRD) > 60 BUN/Creatinine Ratio 8.88 Glucose 87 (74-105) mg/dL Calcium 8.7 (8.4-10.2) mg/dl Total Bilirubin 0.5 (0.2-1.0) mg/dL AST 24 (10-42) IU/L ALT 21 (10-60) IU/L Alkaline Phosphatase 83 (42-121) IU/L Total Protein 6.7 (6.7-8.2) g/dl Albumin 3.7 (3.2-5.5) g/dl Globulin 3.0 Albumin/Globulin Ratio 1.23 Amylase 43 (28-100) U/L Lipase 26 (22-51) U/L Urine Color (YELLOW) Urine Appearance (CLEAR) Urine pH (5.0-9.0) Ur Specific [place] (1.005-1.030) Urine Protein (NEGATIVE) Urine Glucose (UA) (NEGATIVE) Urine Ketones (NEGATIVE) Urine Occult Blood (NEGATIVE) Urine Nitrite (NEGATIVE) Urine Bilirubin (NEGATIVE) Urine Urobilinogen (0.2-1.0) mg/dL Ur Leukocyte Esterase (NEGATIVE) Urine RBC /HPF Urine WBC (0-5/HPF) /HPF Ur Epithelial Cells /HPF Urine Bacteria (0-FEW/HPF) /HPF Urine Opiates Screen (NEGATIVE) Ur Oxycodone Screen (NEGATIVE) Urine Methadone Screen (NEGATIVE) Ur Barbiturates Screen (NEGATIVE) U Tricyclic Antidepress (NEGATIVE) Ur Phencyclidine Scrn (NEGATIVE) Ur Amphetamine Screen (NEGATIVE) U Methamphetamines Scrn (NEGATIVE) Urine MDMA Screen (NEGATIVE) U Benzodiazepines Scrn (NEGATIVE) Urine Cocaine Screen (NEGATIVE) U Marijuana (THC) Screen (NEGATIVE) Ethyl Alcohol < 5 mg/dL Meds: Medications Generic Name Dose Route Start Last Admin Trade Name Freq PRN Reason Stop Dose Admin Sodium Chloride 10 ml 08/30/17 16:16 08/30/17 16:27 Saline Flush FLUSH 10 ml ASDIRECTED PRN Administration Keep Vein Open Discontinued Medications Generic Name Dose Route Start Last Admin Trade Name Freq PRN Reason Stop Dose Admin Sodium Chloride 1,000 mls @ 999 mls/hr 08/30/17 16:16 08/30/17 16:27 Normal Saline IV 08/30/17 17:16 999 mls/hr .BOLUS ONE Administration Ketorolac Tromethamine 30 mg 08/30/17 16:16 08/30/17 16:27 Toradol IVPUSH 08/30/17 16:17 30 mg ONETIME ONE Administration Morphine Sulfate 2 mg 08/30/17 17:16 08/30/17 17:31 Morphine IVPUSH 08/30/17 17:17 2 mg ONETIME ONE Administration Ondansetron HCl 4 mg 08/30/17 17:17 08/30/17 17:32 Zofran IV 08/30/17 17:18 4 mg ONETIME ONE Administration - Radiology Interpretation Free Text/Narrative:: CT Abdomen/Pelvis: No significant change from CT done 07-28-17. Unchanged nonobstructive right nephrolithiasis See rad report Departure - Departure Time of Disposition: 18:19 Disposition: Home, Self-Care 01 Condition: Fair Clinical Impression: Right sided abdominal pain - Discharge Information Instructions: Kidney Stones, [id number], Abdominal Pain, Adult, [id number] , Flank Pain, [id number] Forms: ED Department Discharge Additional Instructions: Drink plenty of water Tylenol and Ibuprofen as directed for pain/fever Follow up in the clinic for possible urology consult. - My Orders Last 24 Hours: My Active Orders 08/30/17 16:16 Peripheral IV Care [RC] . DIRECTED Sodium Chloride 0.9% [Saline Flush] 10 ml FLUSH ASDIRECTED PRN Peripheral IV Insertion Adult [OM.PC] Stat 08/30/17 17:17 Abdomen Pelvis w Cont [CT] Urgent - Assessment/Plan Last 24 Hours: My Active Orders 08/30/17 16:16 Peripheral IV Care [RC] . DIRECTED Sodium Chloride 0.9% [Saline Flush] 10 ml FLUSH ASDIRECTED PRN Peripheral IV Insertion Adult [OM.PC] Stat 08/30/17 17:17 Abdomen Pelvis w Cont [CT] Urgent
[2017-08-30] MEDS ORDERED: Sodium Chloride 0.9% 10 ML Syringe FLUSH PRN (16:16)
[2017-08-30] MEDS ORDERED: Ketorolac 30 MG/ML SDV IVPUSH ONE (16:16)
[2017-08-30] MEDS ORDERED: Sodium Chloride 0.9% 1,000 ML IV ONE (16:16)
[2017-08-30 16:49] LABS: ANION GAP 8.9; CHLORIDE,CL 102 mmol/L (101-111); SODIUM,NA 132 mmol/L (135-145)
[2017-08-30] MEDS ORDERED: Morphine 2 MG/ML Syringe IVPUSH ONE (17:16)
[2017-08-30] MEDS ORDERED: Ondansetron 4 MG/2 ML SDV IV ONE (17:17)
[2017-08-30 18:20] VITALS: BP 136/79
[2017-08-30] MEDS ORDERED: Iopamidol 612 MG/ML 100 ML Bottle IVPUSH ONE (18:31)
== END 2017-08-30 16:48 | disposition home or self-care (01) ==
LOC: DL.ED 15:48
DX: R10.11 Right upper quadrant pain (principal); N20.0 Calculus of kidney; E78.00 Pure hypercholesterolemia, unspecified; I10 Essential (primary) hypertension; F17.210 Nicotine dependence, cigarettes, uncomplicated; Z91.030 Bee allergy status; Z88.0 Allergy status to penicillin; Z88.8 Allergy status to other drugs, medicaments and biological substances; Z79.899 Other long term (current) drug therapy
CPT/HCPCS: 36415; 74177; 80053; 80305; 81001; 82150; 83690; 85025; 96361; 96374; 96375; 99284; G0480; J1885; J2270; J2405; J7030; J7050; Q9967

== ENCOUNTER 2017-09-05 14:44 | Emergency (ER) | payer MEDICAID, MEDICARE ==
[2017-09-05 14:57] VITALS: BP 124/71
--- NOTE | 2017-09-05 17:27 | EDM.PDOC ---
Scribed by Rajani Harris 09/05/17 1792 for Marty Bowen MD ED HPI GENERAL MEDICAL PROBLEM - General Chief Complaint: Lower Extremity Injury/Pain Stated Complaint: [id number] FELL AT HOME Time Seen by Provider: 09/05/17 15:00 Source of Information: Reports: Patient, RN, RN Notes Reviewed History Limitations: Reports: No Limitations - History of Present Illness INITIAL COMMENTS - FREE TEXT/NARRATIVE: C/O pain to Rt knee and ankle sustained prior to arrival from a ground level fall. Denies any other injury. Pt was able to get up and bear wt, but with pain. Onset: Today, Sudden Duration: Constant Quality: Reports: Ache Severity: Moderate Improves with: Reports: Immobilization Worsens with: Reports: Movement Associated Symptoms: Reports: No Other Symptoms Right Leg Pain Score (Numeric/FACES): 7 - Related Data Allergies Allergy/AdvReac Type Severity Reaction Status Date / Time bee venom protein (honey bee) Allergy Airway Verified 09/05/17 14:57 Tightness lurasidone [From Latuda] Allergy Other Verified 09/05/17 14:57 Penicillins Allergy Hives Verified 09/05/17 14:57 Home Meds: Home Meds ALPRAZolam [Alprazolam] 0.25 mg PO QID 03/24/17 [History] Melatonin 10 mg PO BEDTIME 03/24/17 [History] Omeprazole 40 mg PO BID 03/24/17 [History] Potassium Chloride 30 meq PO DAILY 03/24/17 [History] Pramipexole Di-HCl [Mirapex] 2 tab PO BEDTIME 03/24/17 [History] Prazosin HCl [Prazosin] 3 mg PO BEDTIME 03/24/17 [History] Venlafaxine HCl [Venlafaxine ER] 75 mg PO BID 03/24/17 [History] atorvaSTATin [Lipitor] 10 mg PO BEDTIME 03/24/17 [History] risperiDONE 1 mg PO BEDTIME 03/24/17 [History] Fesoterodine Fumarate [Toviaz] 8 mg PO DAILY 04/03/17 [History] valACYclovir HCl [Valtrex] 500 mg PO DAILY 04/03/17 [History] Propranolol [Inderal LA] 80 mg PO DAILY 05/08/17 [History] Cholecalciferol (Vitamin D3) [Vitamin D3] 5,000 units PO DAILY 08/30/17 [History ] Past Medical History HEENT History: Reports: None Cardiovascular History: Reports: Blood Clots/VTE/DVT, High Cholesterol, Hypertension Respiratory History: Reports: PE, Sleep Apnea, Other (See Below) Other Respiratory History: PE 2016 Gastrointestinal History: Reports: GERD, Irritable Bowel Syndrome, Other (See Below) Other Gastrointestinal History: 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 Genitourinary History: Reports: 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: Musculoskeletal History: Reports: Back Pain, Chronic Neurological History: Reports: Migraines Psychiatric History: Reports: Anxiety, Bipolar, Depression, PTSD, Other (See Below) Other Psychiatric History: borderline personality disorder Endocrine/Metabolic History: Reports: None Hematologic History: Reports: None Immunologic History: Reports: None Oncologic (Cancer) History: Reports: None Dermatologic History: Reports: None - Infectious Disease History Infectious Disease History: Reports: Chicken Pox - Past Surgical History Head Surgeries/Procedures: Reports: None HEENT Surgical History: Reports: None Cardiovascular Surgical History: Reports: None Respiratory Surgical History: Reports: None GI Surgical History: Reports: Appendectomy, Cholecystectomy Female Surgical History: Reports: Section, Hysterectomy, Tubal Ligation Endocrine Surgical History: Reports: None Neurological Surgical History: Reports: None Musculoskeletal Surgical History: Reports: Other (See Below) Other Musculoskeletal Surgeries/Procedures:: sergio surgery, knee surgery Dermatological Surgical History: Reports: None Social & Family History - Family History Family Medical History: Noncontributory Cardiac: Reports: Hypertension Endocrine/Metabolic: Reports: Diabetes, Type I, Diabetes, type II Other Endocrine/Metabolic Family History: client unable to recall what type of diabetes is in her family Oncologic: Reports: Lung - Tobacco Use Smoking Status *Q: Current Every Day Smoker Years of Tobacco use: 10 Packs/Tins Daily: 1 Used Tobacco, but Quit: No Second Hand Smoke Exposure: Yes - Caffeine Use Caffeine Use: Reports: Coffee, Soda - Alcohol Use Days Per Week of Alcohol Use: 1 Number of Drinks Per Day: 3 Total Drinks Per Week: 3 - Recreational Drug Use Recreational Drug Use: No - Living Situation & Occupation Living situation: Reports: Occupation: Employed Review of Systems - Review of Systems Review Of Systems: ROS reveals no pertinent complaints other than HPI. ED EXAM, GENERAL - Physical Exam Exam: See Below Exam Limited By: No Limitations General Appearance: Alert, WD/WN, No Apparent Distress, Obese Throat/Mouth: Normal Inspection Head: Atraumatic, Normocephalic Neck: Normal Inspection Respiratory/Chest: No Respiratory Distress Cardiovascular: Normal Peripheral Pulses, Regular Rate, Rhythm Back Exam: Full Range of Motion, Paraspinal Tenderness (mild T&L regions, chronic per pt.). No: CVA Tenderness (L), CVA Tenderness (R), Vertebral Tenderness Extremities: No Pedal Edema, Normal Capillary Refill, Joint Swelling (mild at Rt knee with contusion to anterior knee, very superficial abrasion), Other (Rt ankle with no visible swelling or bruising, full ROM, tender to palpation) Neurological: Alert, Oriented, Normal Cognition, No Motor/Sensory Deficits Psychiatric: Normal Affect, Normal Mood Skin Exam: Warm, Dry, Intact Course - Vital Signs Last Recorded V/S: Last Vital Signs Temp 35.6 C 09/05/17 14:52 Pulse 97 09/05/17 14:52 Resp 16 09/05/17 14:52 BP 124/71 09/05/17 14:52 Pulse Ox 99 09/05/17 14:52 - Radiology Interpretation Free Text/Narrative:: X-ray right ankle: No acute findings. See rad report. X-ray: Right knee: Mild tricompartmental degenerative changes. See rad report. Departure - Departure Time of Disposition: 16:22 Disposition: Home, Self-Care 01 Condition: Fair Clinical Impression: Arthritis of right knee Contusion of right knee Qualifiers: Encounter type: initial encounter Qualified Code(s): S80.01XA - Contusion of right knee, initial encounter Right knee sprain Qualifiers: Encounter type: initial encounter Involved ligament of knee: unspecified ligament Qualified Code(s): S83.91XA - Sprain of unspecified site of right knee , initial encounter Right ankle strain Qualifiers: Encounter type: initial encounter Qualified Code(s): S96.911A - Strain of unspecified muscle and tendon at ankle and foot level, right foot, initial encounter - Discharge Information Instructions: Knee Sprain, Adult, [id number] Referrals: Anastasia Reyes MD [Primary Care Provider] - Forms: ED Department Discharge Additional Instructions: Rest, ice and elevate right knee and ankle to reduce pain and swelling. Wear knee immobilizer as needed for comfort for 7 to 10 days. Use Ibuprofen as prescribed by your doctor. Follow up with if not improving as expected in 4 to 5 days. Activity as tolerated. May return to work next week as scheduled as tolerated. I have read and agree with the documentation that has been completed regarding this visit. By signing this record, I attest that the documentation was completed in my physical presence and is an accurate record of the encounter.
== END 2017-09-05 16:31 | disposition home or self-care (01) ==
LOC: DL.ED 14:44
DX: S83.91XA Sprain of unspecified site of right knee, initial encounter (principal); S96.911A Strain of unspecified muscle and tendon at ankle and foot level, right foot, initial encounter; M17.11 Unilateral primary osteoarthritis, right knee; I10 Essential (primary) hypertension; E78.00 Pure hypercholesterolemia, unspecified; K21.9 Gastro-esophageal reflux disease without esophagitis; F31.9 Bipolar disorder, unspecified; F17.210 Nicotine dependence, cigarettes, uncomplicated; Z79.899 Other long term (current) drug therapy; Z88.0 Allergy status to penicillin; Z88.8 Allergy status to other drugs, medicaments and biological substances; Z91.030 Bee allergy status; W18.30XA Fall on same level, unspecified, initial encounter; Y92.009 Unspecified place in unspecified non-institutional (private) residence as the place of occurrence of the external cause
CPT/HCPCS: 73562-RT; 73610-RT; 99283

== ENCOUNTER 2017-09-12 23:01 | Emergency (ER) | payer OTHER, MEDICARE ==
[2017-09-12 23:24] VITALS: BP 109/65
[2017-09-13] MEDS ORDERED: Diphtheria,Pertussis(Acell),Tetanus Vaccine 0.5 ML SDV IM ONE (00:14)
--- NOTE | 2017-09-13 00:53 | EDM.PDOC ---
ED HPI GENERAL MEDICAL PROBLEM - General Chief Complaint: Laceration Stated Complaint: CUT FINGER AT WORK [id number] Time Seen by Provider: 09/12/17 23:45 Source of Information: Reports: Patient History Limitations: Reports: No Limitations - History of Present Illness INITIAL COMMENTS - FREE TEXT/NARRATIVE: ED with c/o cut to finger, reported holding large bag of "dressing and using knife to open bag and slid knife across top of left 3rd finger. 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) - Related Data Allergies Allergy/AdvReac Type Severity Reaction Status Date / Time bee venom protein (honey bee) Allergy Airway Verified 09/05/17 14:57 Tightness lurasidone [From Latuda] Allergy Other Verified 09/05/17 14:57 Penicillins Allergy Hives Verified 09/05/17 14:57 Home Meds: Home Meds ALPRAZolam [Alprazolam] 0.25 mg PO QID 03/24/17 [History] Melatonin 10 mg PO BEDTIME 03/24/17 [History] Omeprazole 40 mg PO BID 03/24/17 [History] Potassium Chloride 30 meq PO DAILY 03/24/17 [History] Pramipexole Di-HCl [Mirapex] 2 tab PO BEDTIME 03/24/17 [History] Prazosin HCl [Prazosin] 3 mg PO BEDTIME 03/24/17 [History] Venlafaxine HCl [Venlafaxine ER] 75 mg PO BID 03/24/17 [History] atorvaSTATin [Lipitor] 10 mg PO BEDTIME 03/24/17 [History] risperiDONE 1 mg PO BEDTIME 03/24/17 [History] Fesoterodine Fumarate [Toviaz] 8 mg PO DAILY 04/03/17 [History] valACYclovir HCl [Valtrex] 500 mg PO DAILY 04/03/17 [History] Propranolol [Inderal LA] 80 mg PO DAILY 05/08/17 [History] Cholecalciferol (Vitamin D3) [Vitamin D3] 5,000 units PO DAILY 08/30/17 [History ] Past Medical History HEENT History: Reports: None Cardiovascular History: Reports: Blood Clots/VTE/DVT, High Cholesterol, Hypertension Respiratory History: Reports: PE, Sleep Apnea, Other (See Below) Other Respiratory History: PE 2016 Gastrointestinal History: Reports: GERD, Irritable Bowel Syndrome, Other (See Below) Other Gastrointestinal History: 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 Genitourinary History: Reports: Pyelonephritis 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: Musculoskeletal History: Reports: Back Pain, Chronic Neurological History: Reports: Migraines Psychiatric History: Reports: Anxiety, Bipolar, Depression, PTSD, Other (See Below) Other Psychiatric History: borderline personality disorder Endocrine/Metabolic History: Reports: None Hematologic History: Reports: None Immunologic History: Reports: None Oncologic (Cancer) History: Reports: None Dermatologic History: Reports: None - Infectious Disease History Infectious Disease History: Reports: Chicken Pox - Past Surgical History Head Surgeries/Procedures: Reports: None HEENT Surgical History: Reports: None Cardiovascular Surgical History: Reports: None Respiratory Surgical History: Reports: None GI Surgical History: Reports: Appendectomy, Cholecystectomy Female Surgical History: Reports: Section, Hysterectomy, Tubal Ligation Endocrine Surgical History: Reports: None Neurological Surgical History: Reports: None Musculoskeletal Surgical History: Reports: Other (See Below) Other Musculoskeletal Surgeries/Procedures:: sergio surgery, knee surgery Dermatological Surgical History: Reports: None Social & Family History - Family History Family Medical History: Noncontributory Cardiac: Reports: Hypertension Endocrine/Metabolic: Reports: Diabetes, Type I, Diabetes, type II Other Endocrine/Metabolic Family History: client unable to recall what type of diabetes is in her family Oncologic: Reports: Lung - Tobacco Use Smoking Status *Q: Current Every Day Smoker Years of Tobacco use: 19 Packs/Tins Daily: 1 Used Tobacco, but Quit: No Second Hand Smoke Exposure: Yes - Caffeine Use Caffeine Use: Reports: Coffee, Soda - Alcohol Use Days Per Week of Alcohol Use: 1 Number of Drinks Per Day: 3 Total Drinks Per Week: 3 - Recreational Drug Use Recreational Drug Use: No - Living Situation & Occupation Living situation: Reports: Occupation: Employed ED ROS GENERAL - Review of Systems Review Of Systems: ROS reveals no pertinent complaints other than HPI. ED EXAM, SKIN/RASH Exam: See Below Exam Limited By: No Limitations General Appearance: Alert, No Apparent Distress Eye Exam: Bilateral Eye: EOMI Ears: Normal External Exam Throat/Mouth: Normal Voice Head: Atraumatic, Normocephalic Neck: Normal Inspection, Limited Range of Motion Respiratory/Chest: No Respiratory Distress Cardiovascular: Normal Peripheral Pulses Neurological: Alert, Oriented Skin: Other (superficial flap laceration distal 3rd finger below nail, no active bleeding) Location, Skin: Lower Extremity, Left Associated features: Tenderness. No: Warmth, Swelling ED SKIN PROCEDURES - Laceration/Wound Repair Left Finger Lac/Wound length In cm: 6 Appearance: Superficial Distal NVT: No Tendon Injury Skin Prep: Chlorhexidine (Hibiciens), Saline Closed with: Wound Adhesive, Dermabond, Steri-Strips Course - Vital Signs Last Recorded V/S: Last Vital Signs Temp 97.7 F 09/12/17 23:20 Pulse 86 09/12/17 23:20 Resp 18 09/12/17 23:20 BP 109/65 09/12/17 23:20 Pulse Ox 98 09/12/17 23:20 - Orders/Labs/Meds Orders: Active Orders 24 hr Category Date Time Status Vaccines to be Administered [RC] PER UNIT ROUTINE Care 09/13/17 00:14 Active Meds: Medications Discontinued Medications Generic Name Dose Route Start Last Admin Trade Name Hugh PRN Reason Stop Dose Admin Diphtheria/Tetanus/Acell Pertussis 0.5 ml 09/13/17 00:14 09/13/17 00:28 Adacel IM 09/13/17 00:15 0.5 ml .ONCE ONE Administration Departure - Departure Time of Disposition: 00:46 Disposition: Home, Self-Care 01 Condition: Good Clinical Impression: Minor skin laceration, Broken skin - Discharge Information Instructions: Laceration Care, Adult, [id number] Forms: ED Department Discharge Additional Instructions: keep wound clean and dry follow up if redness swelling or drainage use gloves while at work - My Orders Last 24 Hours: My Active Orders 09/13/17 00:14 Vaccines to be Administered [RC] PER UNIT ROUTINE - Assessment/Plan Last 24 Hours: My Active Orders 09/13/17 00:14 Vaccines to be Administered [RC] PER UNIT ROUTINE
== END 2017-09-13 00:57 | disposition home or self-care (01) ==
LOC: DL.ED 23:01
DX: S61.213A Laceration without foreign body of left middle finger without damage to nail, initial encounter (principal); E78.00 Pure hypercholesterolemia, unspecified; I10 Essential (primary) hypertension; F17.210 Nicotine dependence, cigarettes, uncomplicated; Z91.030 Bee allergy status; Z88.0 Allergy status to penicillin; Z88.8 Allergy status to other drugs, medicaments and biological substances; Z23 Encounter for immunization; Z79.899 Other long term (current) drug therapy; W26.0XXA Contact with knife, initial encounter
CPT/HCPCS: 12002; 90471; 90715; 99001; 99283

== ENCOUNTER 2017-09-26 13:54 | Emergency (ER) | payer MEDICARE, OTHER ==
[2017-09-26 14:06] VITALS: BP 121/83
== END 2017-09-26 16:45 | disposition left against medical advice (07) ==
LOC: DL.ED 13:54
DX: Z53.21 Procedure and treatment not carried out due to patient leaving prior to being seen by health care provider (principal)

== ENCOUNTER 2017-09-27 13:15 | Emergency (ER) | payer MEDICARE ==
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
[2017-09-27 13:58] LABS: CHLORIDE,CL 100 mmol/L (101-111); SODIUM,NA 134 mmol/L (135-145)
--- NOTE | 2017-09-27 14:59 | CR ---
Clinical history: 47-year-old female with chest pain. Interpretation: Less than optimal inspiratory effort upright AP portable chest film but unchanged unc hanged since 24 March 2017 exam. Normal cardiac silhouette without cephalization of vascular flow, signs of alveolar edema or dependen t pleural fluid accumulation. No lung mass, hilar lymphadenopathy or focal lobar pneumonia. No atelectasis/collapse. No pneumothorax. CONCLUSION: No acute new cardiopulmonary abnormality.
[2017-09-27] MEDS ORDERED: Sodium Chloride 0.9% 1,000 ML IV ONE (15:02)
[2017-09-27] MEDS ORDERED: Metoclopramide 10 MG/2 ML SDV IVPUSH ONE (15:02)
[2017-09-27] MEDS ORDERED: diphenhydrAMINE 50 MG/ML SDV IVPUSH ONE (15:02)
[2017-09-27 15:09] VITALS: BP 116/74
[2017-09-27] MEDS ORDERED: Ketorolac 30 MG/ML SDV IVPUSH ONE (16:04)
--- NOTE | 2017-09-28 19:53 | EKG ---
09/27/2017 - IMANI SANTILLAN - TIME: 1336. EKG shows sinus rhythm rate of 88 per minute. [facility] /[id number]
== END 2017-09-27 18:34 | disposition home or self-care (01) ==
LOC: DL.ED 13:15
DX: R07.89 Other chest pain (principal); G43.001 Migraine without aura, not intractable, with status migrainosus; E78.00 Pure hypercholesterolemia, unspecified; I10 Essential (primary) hypertension; F17.210 Nicotine dependence, cigarettes, uncomplicated; Z91.030 Bee allergy status; Z88.0 Allergy status to penicillin; Z88.8 Allergy status to other drugs, medicaments and biological substances; Z79.899 Other long term (current) drug therapy
CPT/HCPCS: 36415; 71045; 80053; 81001; 84484; 85025; 93005; 93010; 96361; 96374; 96375; 99285; J1200; J1885; J2765; J7030

== ENCOUNTER 2017-10-13 15:27 | Emergency (ER) | payer MEDICARE ==
[2017-10-13] MEDS ORDERED: Morphine 4 MG/ML Syringe IVPUSH ONE ×2 (15:50→16:45)
[2017-10-13] MEDS ORDERED: Ondansetron 4 MG/2 ML SDV IV ONE (15:50)
[2017-10-13] MEDS ORDERED: Ketorolac 30 MG/ML SDV IVPUSH ONE (15:50)
[2017-10-13] MEDS ORDERED: Sodium Chloride 0.9% 1,000 ML IV ONE (15:50)
[2017-10-13] MEDS ORDERED: Sodium Chloride 0.9% 10 ML Syringe FLUSH PRN (15:50)
--- NOTE | 2017-10-13 16:11 | EDM.PDOC ---
ED HPI GENERAL MEDICAL PROBLEM - General Chief Complaint: Abdominal Pain Stated Complaint: [id number] MIGHT BE PASSING KIDNEY STONE- PAIN Time Seen by Provider: 10/13/17 15:30 Source of Information: Reports: Patient, Old Records, RN, RN Notes Reviewed History Limitations: Reports: No Limitations - History of Present Illness INITIAL COMMENTS - FREE TEXT/NARRATIVE: Sheryl is a 47 yo F who presents to the ER due to right sided flank pain. She reports that she was diagnosed with two kidney stones last week and was awaiting an up coming appointment with urology. She reports that around 1300 today she started experiencing sharp right sided flank pain the radiates to her right groin. She has been able to pass urine. Denies hematuria. She reports that she has had nausea off and on. Emesis x1. She did take 800mg of Ibuprofen prior to arrival with minimal relief. Denies fevers. She relates that she has been having normal stools. Onset: Sudden Onset Date: 10/13/17 Onset Time: 13:00 Duration: Hour(s): Location: Reports: Abdomen, Other (Right flank radiating down to right groin) Quality: Reports: Sharp, Stabbing Severity: Severe Improves with: Reports: None Worsens with: Reports: Movement Associated Symptoms: Reports: Nausea/Vomiting. Denies: Chest Pain, Cough, Fever /Chills, Headaches, Rash, Shortness of Breath Right Upper Abdomen Pain Score (Numeric/FACES): 10 - Related Data Allergies Allergy/AdvReac Type Severity Reaction Status Date / Time bee venom protein (honey bee) Allergy Airway Verified 10/13/17 17:18 Tightness lurasidone [From Latuda] Allergy Other Verified 10/13/17 17:18 Penicillins Allergy Hives Verified 10/13/17 17:18 Home Meds: Home Meds ALPRAZolam [Alprazolam] 0.25 mg PO QID 03/24/17 [History] Melatonin 10 mg PO BEDTIME 03/24/17 [History] Omeprazole 40 mg PO BID 03/24/17 [History] Potassium Chloride 30 meq PO DAILY 03/24/17 [History] Pramipexole Di-HCl [Mirapex] 2 tab PO BEDTIME 03/24/17 [History] Prazosin HCl [Prazosin] 3 mg PO BEDTIME 03/24/17 [History] Venlafaxine HCl [Venlafaxine ER] 75 mg PO BID 03/24/17 [History] atorvaSTATin [Lipitor] 10 mg PO BEDTIME 03/24/17 [History] risperiDONE 1 mg PO BEDTIME 03/24/17 [History] Fesoterodine Fumarate [Toviaz] 8 mg PO DAILY 04/03/17 [History] valACYclovir HCl [Valtrex] 500 mg PO DAILY 04/03/17 [History] Propranolol [Inderal LA] 80 mg PO DAILY 05/08/17 [History] Cholecalciferol (Vitamin D3) [Vitamin D3] 5,000 units PO DAILY 08/30/17 [History ] Past Medical History HEENT History: Reports: None Cardiovascular History: Reports: Blood Clots/VTE/DVT, High Cholesterol, Hypertension Respiratory History: Reports: PE, Sleep Apnea, Other (See Below) Other Respiratory History: PE 2016 Gastrointestinal History: Reports: GERD, Irritable Bowel Syndrome, Other (See Below) Other Gastrointestinal History: 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 Genitourinary History: Reports: Pyelonephritis 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: Reports: Musculoskeletal History: Reports: Back Pain, Chronic Neurological History: Reports: Migraines Psychiatric History: Reports: Anxiety, Bipolar, Depression, PTSD, Other (See Below) Other Psychiatric History: borderline personality disorder Endocrine/Metabolic History: Reports: None Hematologic History: Reports: None Immunologic History: Reports: None Oncologic (Cancer) History: Reports: None Dermatologic History: Reports: None - Infectious Disease History Infectious Disease History: Reports: Chicken Pox - Past Surgical History Head Surgeries/Procedures: Reports: None HEENT Surgical History: Reports: None Cardiovascular Surgical History: Reports: None Respiratory Surgical History: Reports: None GI Surgical History: Reports: Appendectomy, Cholecystectomy Female Surgical History: Reports: Section, Hysterectomy, Tubal Ligation Endocrine Surgical History: Reports: None Neurological Surgical History: Reports: None Musculoskeletal Surgical History: Reports: Other (See Below) Other Musculoskeletal Surgeries/Procedures:: sergio surgery, knee surgery Dermatological Surgical History: Reports: None Social & Family History - Family History Family Medical History: Noncontributory Cardiac: Reports: Hypertension Endocrine/Metabolic: Reports: Diabetes, Type I, Diabetes, type II Other Endocrine/Metabolic Family History: client unable to recall what type of diabetes is in her family Oncologic: Reports: Lung - Tobacco Use Smoking Status *Q: Light Tobacco Smoker Years of Tobacco use: 20 Packs/Tins Daily: 0.3 Used Tobacco, but Quit: No Second Hand Smoke Exposure: Yes - Caffeine Use Caffeine Use: Reports: Coffee, Soda - Alcohol Use Days Per Week of Alcohol Use: 1 Number of Drinks Per Day: 3 Total Drinks Per Week: 3 - Recreational Drug Use Recreational Drug Use: No - Living Situation & Occupation Living situation: Reports: Occupation: Employed ED ROS GENERAL - Review of Systems Review Of Systems: ROS reveals no pertinent complaints other than HPI. ED EXAM, RENAL/ - Physical Exam Exam: See Below Exam Limited By: No Limitations General Appearance: Alert, WD/WN, Moderate Distress (Patient appears uncomfortable on assessment. ) Eye Exam: Bilateral Eye: PERRL Ears: Normal External Exam, Normal Canal, Hearing Grossly Normal, Normal TMs Nose: Normal Inspection, Normal Mucosa, No Blood Throat/Mouth: Normal Inspection, Normal Lips, Normal Teeth, Normal Gums, Normal Oropharynx, Normal Voice, No Airway Compromise Head: Atraumatic, Normocephalic Neck: Normal Inspection, Supple, Non-Tender, Full Range of Motion Respiratory/Chest: No Respiratory Distress, Lungs Clear, Normal Breath Sounds, No Accessory Muscle Use, Chest Non-Tender Cardiovascular: Normal Peripheral Pulses, Regular Rate, Rhythm, No Edema, No Gallop, No JVD, No Murmur, No Rub GI/Abdominal: Normal Bowel Sounds, Soft, Non-Tender, No Organomegaly, No Distention, No Abnormal Bruit, No Mass (Female) Exam: Normal External Exam, Normal Speculum Exam, Normal Bimanual Exam Rectal (Female) Exam: Deferred Back Exam: Normal Inspection, Full Range of Motion, NT Extremities: Normal Inspection, Normal Range of Motion, Non-Tender, Normal Capillary Refill, No Pedal Edema Neurological: Alert, Oriented, CN II-XII Intact, Normal Cognition, Normal Gait, Normal Reflexes, No Motor/Sensory Deficits Psychiatric: Normal Affect, Normal Mood Skin Exam: Warm, Dry, Intact, Normal Color, No Rash Lymphatic: No Adenopathy Course - Vital Signs Last Recorded V/S: Last Vital Signs Temp 36.4 C 10/13/17 15:30 Pulse 90 10/13/17 15:30 Resp 16 10/13/17 15:30 BP 119/74 10/13/17 15:30 Pulse Ox 99 10/13/17 15:30 - Orders/Labs/Meds Orders: Active Orders 24 hr Category Date Time Status Peripheral IV Care [RC] . DIRECTED Care 10/13/17 15:50 Active DRUG SCREEN URINE BIORAD [URCHEM] Stat Lab 10/13/17 15:40 Ordered HCG QUALITATIVE,URINE [URCHEM] Stat Lab 10/13/17 15:40 Ordered Sodium Chloride 0.9% [Saline Flush] Med 10/13/17 15:50 Active 10 ml FLUSH ASDIRECTED PRN Peripheral IV Insertion Adult [OM.PC] Stat Oth 10/13/17 15:50 Ordered Medication Orders Sodium Chloride (Saline Flush) 10 ml FLUSH ASDIRECTED PRN PRN Reason: Keep Vein Open Last Admin: 10/13/17 16:10 Dose: 10 ml Labs: Laboratory Tests 10/13/17 10/13/17 10/13/17 Range/Units 15:40 15:40 15:40 WBC (5.0-10.0) 10^3/uL RBC (4.2-5.4) 10^6/uL Hgb (12.0-16.0) g/dL Hct (37.0-47.0) % MCV (80-100) fL MCH (27.0-34.0) pg MCHC (33.0-35.0) g/dL Plt Count (150-450) 10^3/uL Neut % (Auto) (42.2-75.2) % Lymph % (Auto) (20.5-50.1) % [place] % (Auto) (2-8) % Eos % (Auto) (1.0-3.0) % Baso % (Auto) (0.0-1.0) % Sodium (135-145) mmol/L Potassium (3.6-5.0) mmol/L Chloride (101-111) mmol/L Carbon Dioxide (21.0-31.0) mmol/L Anion Gap BUN (7-18) mg/dL Creatinine (0.6-1.3) mg/dL Est Cr Clr Drug Dosing Estimated GFR (MDRD) BUN/Creatinine Ratio Glucose (74-105) mg/dL Calcium (8.4-10.2) mg/dl Total Bilirubin (0.2-1.0) mg/dL AST (10-42) IU/L ALT (10-60) IU/L Alkaline Phosphatase (42-121) IU/L Total Protein (6.7-8.2) g/dl Albumin (3.2-5.5) g/dl Globulin Albumin/Globulin Ratio Urine Color Straw (YELLOW) Urine Appearance Clear (CLEAR) Urine pH 6.5 (5.0-9.0) Ur Specific [place] 1.010 (1.005-1.030) Urine Protein Negative (NEGATIVE) Urine Glucose (UA) Negative (NEGATIVE) Urine Ketones Negative (NEGATIVE) Urine Occult Blood Negative (NEGATIVE) Urine Nitrite Negative (NEGATIVE) Urine Bilirubin Negative (NEGATIVE) Urine Urobilinogen 0.2 (0.2-1.0) mg/dL Ur Leukocyte Esterase Negative (NEGATIVE) Urine RBC Not seen /HPF Urine WBC 0-5 (0-5/HPF) /HPF Ur Epithelial Cells Moderate H /HPF Urine Bacteria Few (0-FEW/HPF) /HPF Urine HCG, Qual Negative Urine Opiates Screen Negative (NEGATIVE) Ur Oxycodone Screen Negative (NEGATIVE) Urine Methadone Screen Negative (NEGATIVE) Ur Barbiturates Screen Negative (NEGATIVE) U Tricyclic Antidepress Negative (NEGATIVE) Ur Phencyclidine Scrn Negative (NEGATIVE) Ur Amphetamine Screen Negative (NEGATIVE) U Methamphetamines Scrn Negative (NEGATIVE) Urine MDMA Screen Negative (NEGATIVE) U Benzodiazepines Scrn Positive H (NEGATIVE) Urine Cocaine Screen Negative (NEGATIVE) U Marijuana (THC) Screen Negative (NEGATIVE) 10/13/17 10/13/17 Range/Units 16:05 16:05 WBC 7.0 (5.0-10.0) 10^3/uL RBC 4.59 (4.2-5.4) 10^6/uL Hgb 13.1 (12.0-16.0) g/dL Hct 39.1 (37.0-47.0) % MCV 85.2 (80-100) fL MCH 28.5 (27.0-34.0) pg MCHC 33.5 (33.0-35.0) g/dL Plt Count 238 (150-450) 10^3/uL Neut % (Auto) 45.0 (42.2-75.2) % Lymph % (Auto) 42.4 (20.5-50.1) % [place] % (Auto) 8.3 H (2-8) % Eos % (Auto) 3.6 H (1.0-3.0) % Baso % (Auto) 0.7 (0.0-1.0) % Sodium 131 L (135-145) mmol/L Potassium 3.8 (3.6-5.0) mmol/L Chloride 101 (101-111) mmol/L Carbon Dioxide 22.0 (21.0-31.0) mmol/L Anion Gap 11.8 BUN 14 (7-18) mg/dL Creatinine 0.8 (0.6-1.3) mg/dL Est Cr Clr Drug Dosing TNP Estimated GFR (MDRD) > 60 BUN/Creatinine Ratio 17.50 Glucose 99 (74-105) mg/dL Calcium 9.3 (8.4-10.2) mg/dl Total Bilirubin 0.5 (0.2-1.0) mg/dL AST 32 (10-42) IU/L ALT 26 (10-60) IU/L Alkaline Phosphatase 77 (42-121) IU/L Total Protein 7.1 (6.7-8.2) g/dl Albumin 4.0 (3.2-5.5) g/dl Globulin 3.1 Albumin/Globulin Ratio 1.29 Urine Color (YELLOW) Urine Appearance (CLEAR) Urine pH (5.0-9.0) Ur Specific [place] (1.005-1.030) Urine Protein (NEGATIVE) Urine Glucose (UA) (NEGATIVE) Urine Ketones (NEGATIVE) Urine Occult Blood (NEGATIVE) Urine Nitrite (NEGATIVE) Urine Bilirubin (NEGATIVE) Urine Urobilinogen (0.2-1.0) mg/dL Ur Leukocyte Esterase (NEGATIVE) Urine RBC /HPF Urine WBC (0-5/HPF) /HPF Ur Epithelial Cells /HPF Urine Bacteria (0-FEW/HPF) /HPF Urine HCG, Qual Urine Opiates Screen (NEGATIVE) Ur Oxycodone Screen (NEGATIVE) Urine Methadone Screen (NEGATIVE) Ur Barbiturates Screen (NEGATIVE) U Tricyclic Antidepress (NEGATIVE) Ur Phencyclidine Scrn (NEGATIVE) Ur Amphetamine Screen (NEGATIVE) U Methamphetamines Scrn (NEGATIVE) Urine MDMA Screen (NEGATIVE) U Benzodiazepines Scrn (NEGATIVE) Urine Cocaine Screen (NEGATIVE) U Marijuana (THC) Screen (NEGATIVE) Meds: Medications Generic Name Dose Route Start Last Admin Trade Name Freq PRN Reason Stop Dose Admin Sodium Chloride 10 ml 10/13/17 15:50 10/13/17 16:10 Saline Flush FLUSH 10 ml ASDIRECTED PRN Administration Keep Vein Open Discontinued Medications Generic Name Dose Route Start Last Admin Trade Name Hugh PRN Reason Stop Dose Admin Sodium Chloride 1,000 mls @ 999 mls/hr 10/13/17 15:50 10/13/17 16:09 Normal Saline IV 10/13/17 16:50 999 mls/hr .BOLUS ONE Administration Ketorolac Tromethamine 30 mg 10/13/17 15:50 10/13/17 16:09 Toradol IVPUSH 10/13/17 15:51 30 mg ONETIME ONE Administration Morphine Sulfate 4 mg 10/13/17 15:50 10/13/17 16:10 Morphine IVPUSH 10/13/17 15:51 4 mg ONETIME ONE Administration Morphine Sulfate 4 mg 10/13/17 16:45 10/13/17 17:08 Morphine IVPUSH 10/13/17 16:46 4 mg ONETIME ONE Administration Ondansetron HCl 4 mg 10/13/17 15:50 10/13/17 16:11 Zofran IV 10/13/17 15:51 4 mg ONETIME ONE Administration Departure - Departure Time of Disposition: 18:04 Disposition: Home, Self-Care 01 Condition: Good Clinical Impression: Right flank pain - Discharge Information Instructions: Flank Pain, [id number] Referrals: Anastasia Reyes MD [Primary Care Provider] - Forms: ED Department Discharge Care Plan Goals: Push fluids. Ibuprofen/tylenol as needed Follow-up with your primary care provider early next week for a recheck - My Orders Last 24 Hours: My Active Orders 10/13/17 15:40 DRUG SCREEN URINE BIORAD [URCHEM] Stat HCG QUALITATIVE,URINE [URCHEM] Stat 10/13/17 15:50 Peripheral IV Care [RC] . DIRECTED Sodium Chloride 0.9% [Saline Flush] 10 ml FLUSH ASDIRECTED PRN Peripheral IV Insertion Adult [OM.PC] Stat - Assessment/Plan Last 24 Hours: My Active Orders 10/13/17 15:40 DRUG SCREEN URINE BIORAD [URCHEM] Stat HCG QUALITATIVE,URINE [URCHEM] Stat 10/13/17 15:50 Peripheral IV Care [RC] . DIRECTED Sodium Chloride 0.9% [Saline Flush] 10 ml FLUSH ASDIRECTED PRN Peripheral IV Insertion Adult [OM.PC] Stat
[2017-10-13 16:33] LABS: CHLORIDE,CL 101 mmol/L (101-111); SODIUM,NA 131 mmol/L (135-145)
[2017-10-13 17:18] VITALS: BP 119/74
== END 2017-10-13 18:32 | disposition home or self-care (01) ==
LOC: DL.ED 15:27
DX: R10.9 Unspecified abdominal pain (principal); F17.210 Nicotine dependence, cigarettes, uncomplicated; Z91.030 Bee allergy status; Z88.0 Allergy status to penicillin; Z88.8 Allergy status to other drugs, medicaments and biological substances; Z79.899 Other long term (current) drug therapy
CPT/HCPCS: 36415; 74176; 80053; 80305; 81001; 81025; 85025; 96361; 96374; 96375; 99283; 99284; J1885; J2270; J2405; J7030; J7050

== ENCOUNTER 2017-10-18 15:28 | Emergency (ER) | payer MEDICARE, MEDICAID ==
[2017-10-18 16:25] VITALS: BP 122/71
--- NOTE | 2017-10-18 16:39 | EDM.PDOCBH ---
ED HPI GENERAL MEDICAL PROBLEM - General Stated Complaint: [id number] TOOK A WHOLE BOTTLE OF ASPIRIN,XANAX PRILO Time Seen by Provider: 10/18/17 16:00 Source of Information: Reports: Patient History Limitations: Reports: No Limitations - History of Present Illness INITIAL COMMENTS - FREE TEXT/NARRATIVE: This 47 yo female patient reported to the ED after taking a bottle of aspirin, 6 effexor (75mg), 8-9 xanax (0.25 mg), and an unknown amount of mirapex today. The patient reports she started taking the medications at about noon today and stopped shortly prior to coming to the ED. The patient reports she took the medication because she was angry and mad, but did not take the medications in an attempt to harm herself. The patient has been seen in the ED for an overdose in the past (June 16). Poison control was called regarding the overdose and recommended that the patient admitted for overnight observation (tachycardia ) due to the effexor. 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) - Related Data Allergies Allergy/AdvReac Type Severity Reaction Status Date / Time bee venom protein (honey bee) Allergy Airway Verified 10/13/17 17:18 Tightness lurasidone [From Latuda] Allergy Other Verified 10/13/17 17:18 Penicillins Allergy Hives Verified 10/13/17 17:18 Home Meds: Home Meds ALPRAZolam [Alprazolam] 0.25 mg PO QID 03/24/17 [History] Melatonin 10 mg PO BEDTIME 03/24/17 [History] Omeprazole 40 mg PO BID 03/24/17 [History] Potassium Chloride 30 meq PO DAILY 03/24/17 [History] Pramipexole Di-HCl [Mirapex] 2 tab PO BEDTIME 03/24/17 [History] Prazosin HCl [Prazosin] 3 mg PO BEDTIME 03/24/17 [History] Venlafaxine HCl [Venlafaxine ER] 75 mg PO BID 03/24/17 [History] atorvaSTATin [Lipitor] 10 mg PO BEDTIME 03/24/17 [History] risperiDONE 1 mg PO BEDTIME 03/24/17 [History] Fesoterodine Fumarate [Toviaz] 8 mg PO DAILY 04/03/17 [History] valACYclovir HCl [Valtrex] 500 mg PO DAILY 04/03/17 [History] Propranolol [Inderal LA] 80 mg PO DAILY 05/08/17 [History] Cholecalciferol (Vitamin D3) [Vitamin D3] 5,000 units PO DAILY 08/30/17 [History ] Past Medical History HEENT History: Reports: None Cardiovascular History: Reports: Blood Clots/VTE/DVT, High Cholesterol, Hypertension Respiratory History: Reports: PE, Sleep Apnea, Other (See Below) Other Respiratory History: PE 2016 Gastrointestinal History: Reports: GERD, Irritable Bowel Syndrome, Other (See Below) Other Gastrointestinal History: 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 Genitourinary History: Reports: Pyelonephritis 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: Musculoskeletal History: Reports: Back Pain, Chronic Neurological History: Reports: Migraines Psychiatric History: Reports: Anxiety, Bipolar, Depression, PTSD, Other (See Below) Other Psychiatric History: borderline personality disorder Endocrine/Metabolic History: Reports: None Hematologic History: Reports: None Immunologic History: Reports: None Oncologic (Cancer) History: Reports: None Dermatologic History: Reports: None - Infectious Disease History Infectious Disease History: Reports: Chicken Pox - Past Surgical History Head Surgeries/Procedures: Reports: None HEENT Surgical History: Reports: None Cardiovascular Surgical History: Reports: None Respiratory Surgical History: Reports: None GI Surgical History: Reports: Appendectomy, Cholecystectomy Female Surgical History: Reports: Section, Hysterectomy, Tubal Ligation Endocrine Surgical History: Reports: None Neurological Surgical History: Reports: None Musculoskeletal Surgical History: Reports: Other (See Below) Other Musculoskeletal Surgeries/Procedures:: sergio surgery, knee surgery Dermatological Surgical History: Reports: None Social & Family History - Family History Family Medical History: Noncontributory Cardiac: Reports: Hypertension Endocrine/Metabolic: Reports: Diabetes, Type I, Diabetes, type II Other Endocrine/Metabolic Family History: client unable to recall what type of diabetes is in her family Oncologic: Reports: Lung - Tobacco Use Smoking Status *Q: Light Tobacco Smoker Years of Tobacco use: 20 Packs/Tins Daily: 0.3 Used Tobacco, but Quit: No Second Hand Smoke Exposure: Yes - Caffeine Use Caffeine Use: Reports: Coffee, Soda - Alcohol Use Days Per Week of Alcohol Use: 1 Number of Drinks Per Day: 3 Total Drinks Per Week: 3 - Recreational Drug Use Recreational Drug Use: No - Living Situation & Occupation Living situation: Reports: Occupation: Employed ED ROS GENERAL - Review of Systems Review Of Systems: ROS reveals no pertinent complaints other than HPI. ED EXAM, BEHAVIORAL HEALTH - Physical Exam Exam: See Below Exam Limited By: No Limitations General Appearance: Alert, WD/WN, Anxious, Lethargic, Moderate Distress Eye Exam: Bilateral Eye: EOMI, Normal Inspection, PERRL Ears: Normal External Exam, Normal Canal, Hearing Grossly Normal, Normal TMs Nose: Normal Inspection, Normal Mucosa, No Blood Throat/Mouth: Normal Inspection, Normal Lips, Normal Teeth, Normal Gums, Normal Oropharynx, Normal Voice, No Airway Compromise Head: Atraumatic, Normocephalic Neck: Normal Inspection, Supple, Non-Tender, Full Range of Motion Respiratory/Chest: No Respiratory Distress, Lungs Clear, Normal Breath Sounds, No Accessory Muscle Use, Chest Non-Tender Cardiovascular: Normal Peripheral Pulses, No Gallop, No JVD, No Murmur, No Rub, Tachycardia GI/Abdominal: Normal Bowel Sounds, Soft, No Organomegaly, No Distention, No Abnormal Bruit, No Mass, Tender (Female) Exam: Deferred Rectal (Female) Exam: Deferred Back Exam: Normal Inspection, Full Range of Motion, NT Extremities: Pedal Edema (mild (right > left)) Neurological: Alert, Oriented x 3 Psychiatric: Depressed Mood, Agitated Skin Exam: Warm, Dry, Intact, Normal color, No rash COURSE, BEHAVIORAL HEALTH COMP - Course Vital Signs: Last Vital Signs Temp 36.5 C 10/18/17 15:35 Pulse 97 10/18/17 15:35 Resp 18 10/18/17 15:35 BP 122/71 10/18/17 15:35 Pulse Ox 98 10/18/17 15:35 Orders, Labs, Meds: Active Orders 24 hr Category Date Time Status EKG Documentation Completion [RC] URGENT Care 10/18/17 15:52 Ordered DRUG SCREEN URINE BIORAD [URCHEM] Stat Lab 10/18/17 15:52 Ordered HCG QUALITATIVE,URINE [URCHEM] Stat Lab 10/18/17 15:52 Ordered UA W/MICROSCOPIC [URIN] Stat Lab 10/18/17 15:52 Ordered Laboratory Tests 10/18/17 10/18/17 10/18/17 Range/Units 16:13 16:13 16:13 WBC 9.7 (5.0-10.0) 10^3/uL RBC 4.64 (4.2-5.4) 10^6/uL Hgb 13.3 (12.0-16.0) g/dL Hct 39.4 (37.0-47.0) % MCV 84.9 (80-100) fL MCH 28.7 (27.0-34.0) pg MCHC 33.8 (33.0-35.0) g/dL Plt Count 254 (150-450) 10^3/uL Neut % (Auto) 48.9 (42.2-75.2) % Lymph % (Auto) 41.4 (20.5-50.1) % Posey % (Auto) 7.0 (2-8) % Eos % (Auto) 2.3 (1.0-3.0) % Baso % (Auto) 0.4 (0.0-1.0) % Sodium 130 L (135-145) mmol/L Potassium 4.2 (3.6-5.0) mmol/L Chloride 99 L (101-111) mmol/L Carbon Dioxide 20.0 L (21.0-31.0) mmol/L Anion Gap 15.2 BUN 11 (7-18) mg/dL Creatinine 0.8 (0.6-1.3) mg/dL Est Cr Clr Drug Dosing 68.16 mL/min Estimated GFR (MDRD) > 60 BUN/Creatinine Ratio 13.75 Glucose 84 (74-105) mg/dL Calcium 9.0 (8.4-10.2) mg/dl Total Bilirubin 0.4 (0.2-1.0) mg/dL AST 28 (10-42) IU/L ALT 26 (10-60) IU/L Alkaline Phosphatase 73 (42-121) IU/L Total Protein 6.9 (6.7-8.2) g/dl Albumin 3.7 (3.2-5.5) g/dl Globulin 3.2 Albumin/Globulin Ratio 1.16 Urine Color (YELLOW) Urine Appearance (CLEAR) Urine pH (5.0-9.0) Ur Specific [place] (1.005-1.030) Urine Protein (NEGATIVE) Urine Glucose (UA) (NEGATIVE) Urine Ketones (NEGATIVE) Urine Occult Blood (NEGATIVE) Urine Nitrite (NEGATIVE) Urine Bilirubin (NEGATIVE) Urine Urobilinogen (0.2-1.0) mg/dL Ur Leukocyte Esterase (NEGATIVE) Urine RBC /HPF Urine WBC (0-5/HPF) /HPF Ur Epithelial Cells /HPF Urine Bacteria (0-FEW/HPF) /HPF Urine HCG, Qual Salicylates 59.5 Urine Opiates Screen (NEGATIVE) Ur Oxycodone Screen (NEGATIVE) Urine Methadone Screen (NEGATIVE) Acetaminophen < 10 Ur Barbiturates Screen (NEGATIVE) U Tricyclic Antidepress (NEGATIVE) Ur Phencyclidine Scrn (NEGATIVE) Ur Amphetamine Screen (NEGATIVE) U Methamphetamines Scrn (NEGATIVE) Urine MDMA Screen (NEGATIVE) U Benzodiazepines Scrn (NEGATIVE) Urine Cocaine Screen (NEGATIVE) U Marijuana (THC) Screen (NEGATIVE) Ethyl Alcohol < 5 mg/dL 10/18/17 10/18/17 10/18/17 Range/Units 16:16 16:16 16:16 WBC (5.0-10.0) 10^3/uL RBC (4.2-5.4) 10^6/uL Hgb (12.0-16.0) g/dL Hct (37.0-47.0) % MCV (80-100) fL MCH (27.0-34.0) pg MCHC (33.0-35.0) g/dL Plt Count (150-450) 10^3/uL Neut % (Auto) (42.2-75.2) % Lymph % (Auto) (20.5-50.1) % Posey % (Auto) (2-8) % Eos % (Auto) (1.0-3.0) % Baso % (Auto) (0.0-1.0) % Sodium (135-145) mmol/L Potassium (3.6-5.0) mmol/L Chloride (101-111) mmol/L Carbon Dioxide (21.0-31.0) mmol/L Anion Gap BUN (7-18) mg/dL Creatinine (0.6-1.3) mg/dL Est Cr Clr Drug Dosing mL/min Estimated GFR (MDRD) BUN/Creatinine Ratio Glucose (74-105) mg/dL Calcium (8.4-10.2) mg/dl Total Bilirubin (0.2-1.0) mg/dL AST (10-42) IU/L ALT (10-60) IU/L Alkaline Phosphatase (42-121) IU/L Total Protein (6.7-8.2) g/dl Albumin (3.2-5.5) g/dl Globulin Albumin/Globulin Ratio Urine Color Yellow (YELLOW) Urine Appearance Clear (CLEAR) Urine pH 7.0 (5.0-9.0) Ur Specific M[place] <= 1.005 (1.005-1.030) Urine Protein Negative (NEGATIVE) Urine Glucose (UA) Negative (NEGATIVE) Urine Ketones Negative (NEGATIVE) Urine Occult Blood Negative (NEGATIVE) Urine Nitrite Negative (NEGATIVE) Urine Bilirubin Negative (NEGATIVE) Urine Urobilinogen 0.2 (0.2-1.0) mg/dL Ur Leukocyte Esterase Negative (NEGATIVE) Urine RBC 0-5 /HPF Urine WBC Not seen (0-5/HPF) /HPF Ur Epithelial Cells Few /HPF Urine Bacteria Rare (0-FEW/HPF) /HPF Urine HCG, Qual Negative Salicylates Urine Opiates Screen Negative (NEGATIVE) Ur Oxycodone Screen Negative (NEGATIVE) Urine Methadone Screen Negative (NEGATIVE) Acetaminophen Ur Barbiturates Screen Negative (NEGATIVE) U Tricyclic Antidepress Negative (NEGATIVE) Ur Phencyclidine Scrn Negative (NEGATIVE) Ur Amphetamine Screen Negative (NEGATIVE) U Methamphetamines Scrn Negative (NEGATIVE) Urine MDMA Screen Negative (NEGATIVE) U Benzodiazepines Scrn Positive H (NEGATIVE) Urine Cocaine Screen Negative (NEGATIVE) U Marijuana (THC) Screen Negative (NEGATIVE) Ethyl Alcohol mg/dL Departure - Departure Time of Disposition: 17:00 Disposition: DC/Tfer to Acute Hospital 02 Condition: Poor Clinical Impression: Drug overdose, multiple drugs Qualifiers: Encounter type: initial encounter Injury intent: undetermined intent Qualified Code(s): T50.904A - Poisoning by unspecified drugs, medicaments and biological substances, undetermined, initial encounter - Discharge Information Referrals: Anastasia Reyes MD [Primary Care Provider] - Forms: Interfacility Transfer EMTALA Care Plan Goals: Discussed the examination, history, lab, EKG, and consult results with Dr. Hogan (ED at [facility] in [place]). Dr. Hogan accepted the patient for continued evaluation and management. The patient will be transported by [facility]. - My Orders Last 24 Hours: My Active Orders 10/18/17 15:52 EKG Documentation Completion [RC] URGENT DRUG SCREEN URINE BIORAD [URCHEM] Stat HCG QUALITATIVE,URINE [URCHEM] Stat UA W/MICROSCOPIC [URIN] Stat - Assessment/Plan Last 24 Hours: My Active Orders 10/18/17 15:52 EKG Documentation Completion [RC] URGENT DRUG SCREEN URINE BIORAD [URCHEM] Stat HCG QUALITATIVE,URINE [URCHEM] Stat UA W/MICROSCOPIC [URIN] Stat
[2017-10-18 16:40] LABS: ANION GAP 15.2; CHLORIDE,CL 99 mmol/L (101-111); SODIUM,NA 130 mmol/L (135-145)
[2017-10-18 16:41] LABS: ACETAMINOPHEN < 10
--- NOTE | 2017-10-19 16:07 | EKG ---
10/18/2017 - IMANI SANTILLAN I reviewed the EKG and agree with the machine's reading. [facility] /[id number]
== END 2017-10-18 17:45 ==
LOC: DL.ED 15:28
DX: T39.012A Poisoning by aspirin, intentional self-harm, initial encounter (principal); T43.212A Poisoning by selective serotonin and norepinephrine reuptake inhibitors, intentional self-harm, initial encounter; T42.8X2A Poisoning by antiparkinsonism drugs and other central muscle-tone depressants, intentional self-harm, initial encounter; E78.00 Pure hypercholesterolemia, unspecified; I10 Essential (primary) hypertension; F17.210 Nicotine dependence, cigarettes, uncomplicated; Z91.030 Bee allergy status; Z88.0 Allergy status to penicillin; Z88.8 Allergy status to other drugs, medicaments and biological substances; Z79.899 Other long term (current) drug therapy
CPT/HCPCS: 36415; 80053; 80305; 81001; 81025; 85025; 93005; 93010; 99285; G0480

== ENCOUNTER 2017-11-16 15:47 | Emergency (ER) | payer MEDICARE, MEDICAID ==
[2017-11-16] MEDS ORDERED: diphenhydrAMINE 50 MG/ML SDV IVPUSH ONE (15:53)
[2017-11-16] MEDS ORDERED: Ketorolac 30 MG/ML SDV IVPUSH ONE (15:53)
[2017-11-16] MEDS ORDERED: Ondansetron 4 MG/2 ML SDV IV ONE (15:53)
[2017-11-16] MEDS ORDERED: Sodium Chloride 0.9% 1,000 ML IV ONE (15:53)
[2017-11-16 15:54] VITALS: BP 123/68
--- NOTE | 2017-11-16 16:06 | EDM.PDOC ---
ED HPI GENERAL MEDICAL PROBLEM - General Chief Complaint: Headache Stated Complaint: MIGRAINE [phone] Time Seen by Provider: 11/16/17 15:55 Source of Information: Reports: Patient History Limitations: Reports: No Limitations - History of Present Illness INITIAL COMMENTS - FREE TEXT/NARRATIVE: This 47 yo female patient reports to the ED with a headache that started at about 1000 this morning. The patient reports she has taken her Imitrex 2 times with no improvement in her symptoms. Onset: Today Onset Date: 11/16/17 Onset Time: 10:00 Duration: Constant Location: Reports: Head Quality: Reports: Ache, Sharp, Throbbing Severity: Severe Improves with: Reports: None Worsens with: Reports: None Associated Symptoms: Reports: No Other Symptoms Headache Pain Score (Numeric/FACES): 8 - Related Data Allergies Allergy/AdvReac Type Severity Reaction Status Date / Time bee venom protein (honey bee) Allergy Airway Verified 10/18/17 18:01 Tightness lurasidone [From Latuda] Allergy Other Verified 10/18/17 18:01 Penicillins Allergy Hives Verified 10/18/17 18:01 Home Meds: Home Meds ALPRAZolam [Alprazolam] 0.25 mg PO QID 03/24/17 [History] Melatonin 10 mg PO BEDTIME 03/24/17 [History] Omeprazole 40 mg PO BID 03/24/17 [History] Potassium Chloride 30 meq PO DAILY 03/24/17 [History] Pramipexole Di-HCl [Mirapex] 2 tab PO BEDTIME 03/24/17 [History] Prazosin HCl [Prazosin] 3 mg PO BEDTIME 03/24/17 [History] Venlafaxine HCl [Venlafaxine ER] 75 mg PO BID 03/24/17 [History] atorvaSTATin [Lipitor] 10 mg PO BEDTIME 03/24/17 [History] risperiDONE 1 mg PO BEDTIME 03/24/17 [History] Fesoterodine Fumarate [Toviaz] 8 mg PO DAILY 04/03/17 [History] valACYclovir HCl [Valtrex] 500 mg PO DAILY 04/03/17 [History] Propranolol [Inderal LA] 80 mg PO DAILY 05/08/17 [History] Cholecalciferol (Vitamin D3) [Vitamin D3] 5,000 units PO DAILY 08/30/17 [History ] Past Medical History HEENT History: Reports: None Cardiovascular History: Reports: Blood Clots/VTE/DVT, High Cholesterol, Hypertension Respiratory History: Reports: PE, Sleep Apnea, Other (See Below) Other Respiratory History: PE 2016 Gastrointestinal History: Reports: GERD, Irritable Bowel Syndrome, Other (See Below) Other Gastrointestinal History: 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 Genitourinary History: Reports: Pyelonephritis 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: Musculoskeletal History: Reports: Back Pain, Chronic Neurological History: Reports: Migraines Psychiatric History: Reports: Anxiety, Bipolar, Depression, PTSD, Other (See Below) Other Psychiatric History: borderline personality disorder Endocrine/Metabolic History: Reports: None Hematologic History: Reports: None Immunologic History: Reports: None Oncologic (Cancer) History: Reports: None Dermatologic History: Reports: None - Infectious Disease History Infectious Disease History: Reports: Chicken Pox - Past Surgical History Head Surgeries/Procedures: Reports: None HEENT Surgical History: Reports: None Cardiovascular Surgical History: Reports: None Respiratory Surgical History: Reports: None GI Surgical History: Reports: Appendectomy, Cholecystectomy Female Surgical History: Reports: Section, Hysterectomy, Tubal Ligation Endocrine Surgical History: Reports: None Neurological Surgical History: Reports: None Musculoskeletal Surgical History: Reports: Other (See Below) Other Musculoskeletal Surgeries/Procedures:: sergio surgery, knee surgery Dermatological Surgical History: Reports: None Social & Family History - Family History Family Medical History: Noncontributory Cardiac: Reports: Hypertension Endocrine/Metabolic: Reports: Diabetes, Type I, Diabetes, type II Other Endocrine/Metabolic Family History: client unable to recall what type of diabetes is in her family Oncologic: Reports: Lung - Tobacco Use Smoking Status *Q: Current Every Day Smoker Years of Tobacco use: 20 Packs/Tins Daily: 1 - Caffeine Use Caffeine Use: Reports: Coffee, Soda - Recreational Drug Use Recreational Drug Use: No - Living Situation & Occupation Living situation: Reports: Occupation: Employed ED ROS GENERAL - Review of Systems Review Of Systems: ROS reveals no pertinent complaints other than HPI. - Physical Exam Exam: See Below Exam Limited By: No Limitations General Appearance: Alert, WD/WN, Moderate Distress Eye Exam: Bilateral Eye: EOMI, Normal Inspection, PERRL Ears: Normal External Exam, Normal Canal, Hearing Grossly Normal, Normal TMs Nose: Normal Inspection, Normal Mucosa, No Blood Throat/Mouth: Normal Inspection, Normal Lips, Normal Teeth, Normal Gums, Normal Oropharynx, Normal Voice, No Airway Compromise Head Exam: Atraumatic, Normocephalic Neck: Normal Inspection, Supple, Non-Tender, Full Range of Motion Respiratory/Chest: No Respiratory Distress, Lungs Clear, Normal Breath Sounds, No Accessory Muscle Use, Chest Non-Tender Cardiovascular: Normal Peripheral Pulses GI/Abdominal: Normal Bowel Sounds, Soft, Non-Tender, No Organomegaly, No Distention, No Abnormal Bruit, No Mass (Female) Exam: Deferred Rectal (Female) Exam: Deferred Neuro Exam (Abbreviated): Alert, Oriented, CN II-XII Intact, Normal Cognition, Normal Gait, Normal Reflexes, No Motor/Sensory Deficits Back Exam: Normal Inspection, Full Range of Motion, NT Extremities: Normal Inspection, Normal Range of Motion, Non-Tender, No Pedal Edema, Normal Capillary Refill Psychiatric: Normal Affect, Normal Mood Skin Exam: Warm, Dry, Intact, Normal Color, No Rash Course - Vital Signs Last Recorded V/S: Last Vital Signs Temp 36.8 C 11/16/17 15:52 Pulse 100 11/16/17 15:52 Resp 16 11/16/17 15:52 BP 123/68 11/16/17 15:52 Pulse Ox 99 11/16/17 15:52 - Orders/Labs/Meds Meds: Medications Discontinued Medications Generic Name Dose Route Start Last Admin Trade Name Hugh PRN Reason Stop Dose Admin Diphenhydramine HCl 25 mg 11/16/17 15:53 11/16/17 16:10 Benadryl IVPUSH 11/16/17 15:54 25 mg ONETIME ONE Administration Sodium Chloride 1,000 mls @ 999 mls/hr 11/16/17 15:53 11/16/17 16:09 Normal Saline IV 11/16/17 16:53 999 mls/hr .BOLUS ONE Administration Ketorolac Tromethamine 30 mg 11/16/17 15:53 11/16/17 16:05 Toradol IVPUSH 11/16/17 15:54 30 mg ONETIME ONE Administration Ondansetron HCl 4 mg 11/16/17 15:53 11/16/17 16:09 Zofran IV 11/16/17 15:54 4 mg ONETIME ONE Administration Departure - Departure Time of Disposition: 17:06 Disposition: Home, Self-Care 01 Condition: Good Clinical Impression: Migraine - Discharge Information Referrals: Anastasia Reyes MD [Primary Care Provider] - Forms: ED Department Discharge Care Plan Goals: The patient was advised of the examination results during the visit. The patient was given IV medication and IV fluids while in the ED. If the patient has any additional symptoms or concerns, the patient should follow-up with her primary care facility or return to the ED.
== END 2017-11-16 17:14 | disposition home or self-care (01) ==
LOC: DL.ED 15:47
DX: G43.909 Migraine, unspecified, not intractable, without status migrainosus (principal); F17.210 Nicotine dependence, cigarettes, uncomplicated; I10 Essential (primary) hypertension; E78.00 Pure hypercholesterolemia, unspecified; K21.9 Gastro-esophageal reflux disease without esophagitis; F41.9 Anxiety disorder, unspecified; F31.9 Bipolar disorder, unspecified; Z79.899 Other long term (current) drug therapy; Z88.0 Allergy status to penicillin; Z91.030 Bee allergy status; Z88.8 Allergy status to other drugs, medicaments and biological substances
CPT/HCPCS: 96361; 96374; 96375; 99283; J1200; J1885; J2405; J7030